=== PATIENT | male | born 1955 | race Caucasian/White ===

== ENCOUNTER 2023-12-29 01:42 | Inpatient (IN) | payer MEDICARE, SELFPAY ==
[2023-12-28 22:47] VITALS: BP 135/71
[2023-12-28 23:14] VITALS: BMI 24.4
[2023-12-28 23:40] VITALS: BP 130/70
[2023-12-28 23:42] LABS: % Basophils 0.7 % (0-2); % Eosinophils 0.2 % (0-6); % Immature Granulocytes 0.9 % (0-0.5); % Lymphocytes 20.3 % (20.5-51.1); % Monocytes 7.3 % (1.7-9.3); % Neutrophils 70.6 % (42.2-75.2); Absolute Lymphocytes 0.9 10^3/uL (1.2-3.4); Absolute Monocytes 0.3 10^3/uL (0.1-0.6); Absolute Neutrophils 3.2 10^3/uL (1.4-6.5); Hematocrit 29.8 % (39.0-52.0); Hemoglobin 10.6 g/dL (13.0-18.0); Mean Corp Hgb Conc. 35.6 g/dL (33.0-37.0); Mean Corpuscular Volume 78.6 fL (80.0-94.0); Mean Platelet Volume 8.3 fL (7.4-10.4); Nucleated Red Blood Cells % 0 % (-); Platelet Count 274 10^3/uL (130-400); Red Blood Cell Count 3.79 10^6/uL (4.70-6.10); Red Cell Dist. Width 14.4 % (11.5-14.5); White Blood Cell Count 4.5 10^3/uL (4.8-10.8)
[2023-12-28] MEDS: MAXIPIME 2000 MG IV (23:49)
[2023-12-28] MEDS: NSS 1000 IV (23:50)
[2023-12-28] MEDS: ZOFRAN 4 MG IV (23:50)
[2023-12-28 23:59] LABS: Urine Albumin 1+ (Neg - Trace); Urine Bilirubin Negative (Negative); Urine Character Clear (Clear); Urine Color Yellow; Urine Glucose Negative (Negative); Urine Ketone Negative (Negative); Urine Leukocyte Negative (Negative); Urine Nitrite Negative (Negative); Urine Occult Blood Negative (Negative); Urine Urobilinogen Negative (Neg - 1+); Urine pH 6.5 (5.0-9.0)
[2023-12-28 23:59] LABS: Carbon Dioxide 26 mmol/L (22-30)
[2023-12-29] VITALS (9 sets, daily range): BP systolic 102–145; BP diastolic 69–91; BMI 24.3
[2023-12-29 00:08] LABS: Urine Amorphous Seen; Urine Bacteria Few (Negative)
[2023-12-29 00:09] LABS: ALT (SGPT) 63 U/L (0-50); AST (SGOT) 37 U/L (17-59); Albumin 3.8 g/dl (3.5-5.0); Alkaline Phosphatase 264 U/L (38-126); Blood Urea Nitrogen 14 mg/dl (9-20); Calcium 8.7 mg/dl (8.4-10.2); Chloride 97 mmol/L (98-107); Estimated Creatinine Clearance > 125 ml/min; Glucose 169 mg/dl (70-99); Potassium 3.2 mmol/L (3.5-5.1); Sodium 133 mmol/L (135-145); Total Bilirubin 1.1 mg/dl (0.2-1.3); Total Protein 6.5 g/dl (6.3-8.2); eGFR > 60.00
--- NOTE | 2023-12-29 00:23 | ED.GENMED ---
History of Present Illness
General
Chief Complaint: Abnormal Lab Value
Source: patient
Exam Limitations: none
Time Seen by Provider: 12/28/23 23:12
Travel History
Have you had any contact with someone who has COVID-19?: No
Do you have any symptoms of coronavirus? Fever > 100 degrees, chills, cough, shortness of breath, sore throat, loss of taste or smell, muscle aches, or headache?: No
History of Present Illness
History of Present Illness:
68-year-old male with a history of pancreatic CA currently receiving therapy at [facility]. Patient had some increased abdominal pain yesterday. During his visit at [facility] they did labs urine and stool culture and blood cultures.
Patient was called that his blood culture had gram-negative rods and was sent for admission. Abdominal pain is significantly improved. He has had some episodes of vomiting today. No other infectious symptoms.
Past History
Past History
ED Past Medical History: Arrthythmia, Cancer, HTN, Hypercholesterolemia and IDDM
ED Past Surgical History: Orthopedic and Other (Lobectomy bile duct stents cataracts)
Social History
Tobacco: Non-smoker
Personal:
Review of Systems
Review of Systems
All Other Systems: Not applicable
Constitutional: Denies fever
Respiratory: Reports no symptoms
Cardiac: Reports no symptoms
: Reports no symptoms
Phy Exam
Physical Exam
Physical Exam:
GENERAL: Alert and oriented in no apparent distress
EYE: Orbits normal.
NECK: Supple
CARDIAC: Regular rate and rhythm without any obvious murmurs.
LUNGS: Clear breath sounds,normal
ABDOMEN: Soft, without focal tenderness or distention
NEUROLOGICAL: Alert and oriented , grossly non-focal
SKIN: Warm and dry, no rash or lesion, no discoloration, skin intact.
MUSCULOSKELETAL: No edema,no deformity.Good color
PSYCH: Normal and appropriate interaction.
Course
Orders/Labs/Results
Orders:
Orders
12/28/23 23:22
IV Insert/Care/Rem.- Treatment PRN
Cefepime HCl [Maxipime] 2,000 mg IV NOW STA
12/28/23 23:29
Complete Blood Count/With Diff Urgent
Comprehensive Metabolic Panel Urgent
Blood Culture Q30M
DONALD Source: Blood/Venous
Specimen Description:
12/28/23 23:39
Urinalysis Reflex To Culture Urgent
Date Specimen was Collected: 12/28/23
Time Specimen was Collected: 23:38
Urine Microscopic Reflex Cult Urgent
12/28/23 23:43
0.9% Sodium Chloride 1000 ml [Nss] 1,000 ml IV BOLUS
Ondansetron Injectable [Zofran] 4 mg IV NOW STA
12/28/23 23:46
Sterile Water [Sterile Water For Injection] 10 ml .ROUTE .[facility]
12/29/23 00:00
Blood Culture Q30M
DONALD Source: Blood/Venous
Specimen Description:
Abnormal Lab Results
12/28/23 12/28/23
23:29 23:39
WBC 4.5 L 10^3/uL
(4.8-10.8)
RBC 3.79 L 10^6/uL
(4.70-6.10)
Hgb 10.6 L g/dL
(13.0-18.0)
Hct 29.8 L %
(39.0-52.0)
MCV 78.6 L fL
(80.0-94.0)
Absolute Lymphs (auto) 0.9 L 10^3/uL
(1.2-3.4)
Immature Gran % 0.9 H %
(0-0.5)
Lymphocytes % 20.3 L %
(20.5-51.1)
Sodium 133 L mmol/L
(135-145)
Potassium 3.2 L mmol/L
(3.5-5.1)
Chloride 97 L mmol/L
(98-107)
Creatinine 0.6 L mg/dL
(0.7-1.3)
Glucose 169 H mg/dl
(70-99)
ALT 63 H U/L
(0-50)
Alkaline Phosphatase 264 H U/L
(38-126)
Urine RBC 3-6 A /HPF
(0-2)
Urine Bacteria (Reflex) Few A
(Negative)
Urine Albumin (Reflex) 1+ A
(Neg - Trace)
12/28/23 23:29
12/28/23 23:29
Vital Signs
Initial and Last Documented VS:
Initial Vital Signs
Temp Pulse Resp BP Pulse Ox
99.3 F 87 18 135/71 97
12/28/23 22:47 12/28/23 22:47 12/28/23 22:47 12/28/23 22:47 12/28/23 22:47
Last Documented Vital Signs
Temp Pulse Resp BP Pulse Ox
99.3 F 87 18 130/70 94
12/28/23 22:47 12/28/23 22:47 12/28/23 22:47 12/28/23 23:40 12/28/23 23:41
*Pulse Oximetry
Patient hypoxic: no
*Critical Care Note
Total Time (30-74mins, 75-104mins- exclusive of procedures): Not Applicable
Update Note
Update Note:
History consistent with gram-negative bacteremia. Admission for IV antibiotics. No clinical source to support the etiology. Abdomen is soft. Nonsurgical. No indication for CT scan. Stool culture was already sent. Urinalysis negative. No
respiratory symptoms.
ED Attending Note
-
Portions of this chart may have been created with voice recognition software.� Occasional wrong word or��sound alike� substitutions may have occurred due to the inherent limitations of voice recognition software.
Discharge Plan
Departure
Patient Disposition: Admit
Date of Disposition: 12/29/23
Time of Disposition: 00:26
Presentation/result/management discussed w/ accepting MD/DO: Hospitalist
Discharge Problem:
Gram-negative bacteremia, History of pancreatic CA
Prescriptions:
No Action
metoprolol succinate 50 mg Tablet Extended Release 24 Hr
50 mg PO HS
esomeprazole magnesium 40 mg Capsule,Delayed Release(Dr/Ec)
40 mg PO BID
azelastine 137 mcg (0.1 %) Aerosol,[place]
1 spray INTRANASAL DAILY
fluticasone propionate 50 mcg/actuation [place],Suspension
2 spray INTRANASAL DAILY
rosuvastatin 20 mg Tablet
20 mg PO HS
cholecalciferol (vitamin D3) [Vitamin D3] 125 mcg (5,000 unit) Tablet
125 mcg PO QPM
dapagliflozin propanediol [Farxiga] 5 mg Tablet
5 mg PO DAILY
Hold Instructions: Resume on 12/04/23.
Patient Comments:
11/25/2023: ON HOLD CURRENTLY
potassium citrate 99 mg Capsule
99 mg PO QPM
dutasteride 0.5 mg Capsule
0.5 mg PO QPM
Eliquis 5 mg tablet
5 mg PO BID
Patient Comments:
patient stopping eliquis on 10/27/23 and changing to asa
pioglitazone [Actos] 30 mg Tablet
30 mg PO DAILY
Hold Instructions: Resume on 11/17/23. resume if blood glucose levels are elevated on metformin
Patient Comments:
11/25/2023: ON HOLD CURRENTLY
silodosin [Rapaflo] 8 mg Capsule
8 mg PO HS
magnesium oxide 400 mg magnesium Tablet
400 mg PO QPM
acetaminophen [Tylenol] 325 mg capsule
650 mg PO QIDPRN PRN (Reason: mild pain)
sennosides [senna] 8.6 mg Tablet
17.2 mg PO BID
polyethylene glycol 3350 [HealthyLax] 17 gram powder in packet
17 g PO BID
oxycodone 5 mg capsule
5 mg PO Q4H
Patient Comments:
11/25/2023: last filled 11/18/23, 180 tabs for 30 from [id number]
valsartan 160 mg tablet
80 mg PO HS
Rx Instructions:
HOLD SYSTOLIC BLOOD PRESSURE <130 IF TAKING OXYCODONE
metformin 1,000 mg tablet extended release 24 hr
1,000 mg PO QPM
Referrals:
Coby Kline MD [Family Provider] -
Interventions
Interventions:
*Risk Screen - Suicide Last Done: 12/28/23 22:47
*General Assessment Last Done: 12/28/23 22:47
*Neglect/Abuse Screening Last Done: 12/28/23 22:47
ED- Fall Risk Assessment Last Done: 12/28/23 23:15
--- NOTE | 2023-12-29 00:31 | HPS.HSE ---
Family Physician
-
Family Physician: Coby Kline
Chief Complaint
-
gram negative bacteremia
History of Present Illness
Mr. Yonas Carlson is a 68 yo man with hx pancreatic cancer (follows at [facility]); paroxysmal atrial fibrillation on Eliquis presents to the ER after outpatient blood work showed gram negative rods bacteremia.
Patient received blood work because when he went for chemo on Monday he felt very sick. + headache and fatigue. He had vomiting and diarrhea. Thought may be 2/2 oxycodone taken on empty stomach but pursued work-up and patient received call he
had gram negative bacteremia on 12/28 and came to the ER.
He denies fevers/chills. No chest pain or shortness of breath. Last episode of diarrhea was at chemo. He has chronic abdominal pain from cancer with recent worsening sharp pains.
Patient was sent home from chemo with continuous infusion of Fluorouracil that is now complete.
Medical History
Past Medical History
Past Medical History: Reports Other
Additional Past Medical History:
Pancreatic Cancer
Lung Cancer s/p Lobectomy
DM-II
HUSSEIN
Past Surgical History: Reports Other
Additional Past Surgical History:
Right Lower Lobectomy
Left GINA
Social History
Tobacco: Non-smoker
Alcohol: None
Drug: None
Personal:
Family History
Family History: Not pertinent
Allergies / Home Medications
Allergies reflects when Allergies were last updated in [facility].
Home Medications with original date entered in [facility]
Allergy/Medication List:
Allergies
Allergy/AdvReac Type Severity Reaction Status Date / Time
latex Allergy Hives Verified 11/25/23 15:31
Sulfa (Sulfonamide Allergy Fever, Verified 11/25/23 15:31
Antibiotics) Hives
Home Medications
azelastine 137 mcg (0.1 %) nasal spray aerosol 1 spray intranasal DAILY Congestion 07/13/23
cholecalciferol (vitamin D3) 125 mcg (5,000 unit) tablet (Vitamin D3) 125 mcg PO QPM Supplement 07/13/23
dapagliflozin propanediol 5 mg tablet (Farxiga) 5 mg PO DAILY Diabetes 07/13/23
esomeprazole magnesium 40 mg capsule,delayed release 40 mg PO BID Gastrointestinal Issue 07/13/23
fluticasone propionate 50 mcg/actuation nasal spray,suspension 2 spray intranasal DAILY INFLAMMATION 07/13/23
metoprolol succinate 50 mg tablet,extended release 24 hr 50 mg PO HS Blood Pressure 07/13/23
potassium citrate 99 mg capsule 99 mg PO QPM Supplement 07/13/23
rosuvastatin 20 mg tablet 20 mg PO HS High Cholesterol 07/13/23
dutasteride 0.5 mg capsule 0.5 mg PO QPM Urinary Issue 10/31/23
acetaminophen 325 mg capsule (Tylenol) 650 mg PO QIDPRN PRN mild pain 11/03/23
apixaban 5 mg tablet (Eliquis) 5 mg PO BID Blood Clot Prevention/Tx 11/03/23
magnesium oxide 400 mg PO QPM Electrolyte Repletion 11/03/23
pioglitazone 30 mg tablet (Actos) 30 mg PO DAILY Diabetes 11/03/23
silodosin 8 mg capsule (Rapaflo) 8 mg PO HS Urinary Issue 11/03/23
metformin 1,000 mg tablet,extended release 24hr (osmotic) 1,000 mg PO QPM Diabetes 11/25/23
oxycodone 5 mg capsule 5 mg PO Q4H Pain 11/25/23
polyethylene glycol 3350 17 gram oral powder packet (HealthyLax) 17 g PO BID Constipation 11/25/23
sennosides 8.6 mg tablet (senna) 17.2 mg PO BID Constipation 11/25/23
valsartan 160 mg tablet 80 mg PO HS Blood Pressure 11/25/23
Review of Systems
-
History Source: Patient
A 12 point ROS was completed and negative except as noted: Yes
Physical Exam
Vital Signs
Vital Signs
Temp Pulse Resp BP Pulse Ox
99.3 F 87 18 130/70 94
12/28/23 22:47 12/28/23 22:47 12/28/23 22:47 12/28/23 23:40 12/28/23 23:41
Physical Exam
General: Other (no acute distress, conversant)
HEENT: Moist mucous membranes and PERRLA
Respiratory: Clear; No Wheezes, Rales or Rhonchi
Cardiac: S1/S2 and Regular Rhythm; No Murmur
GI: Soft, Non Distended, Normal Bowel Sounds and Other (Pos mid-abdominal tenderness - chronic per patient.)
Musculoskeletal: No Clubbing, No Cyanosis and No Edema
Neuro: AO x 3
Psych: Calm; No Anxious or Depressed
Laboratory Results
-
12/28/23 23:29
12/28/23 23:29
Laboratory Results
Total Bilirubin 1.1 mg/dl (0.2-1.3) 12/28/23 23:29
AST 37 U/L (17-59) 12/28/23 23:29
ALT 63 U/L (0-50) H 12/28/23 23:29
Alkaline Phosphatase 264 U/L (38-126) H 12/28/23 23:29
Data Reviewed
-
Diagnostic Radiology: Report Reviewed by me
Lab Data: Labs Reviewed by me
Impression/Plan
-
Mr. Yonas Carlson is a 68 yo man with hx pancreatic cancer (follows at [facility]); paroxysmal atrial fibrillation on Eliquis presents to the ER after outpatient blood work showed gram negative rods bacteremia.
Labs: WBC 4.5, Hg 10.6, PLT 274; Na 133, K+ 3.2, Cl 97, BUN 14, Cr 0.6, Glucose 169, T. Bili 1.1, AST 37, ALT 63, Alk Phos 264
UA 3-5 WBC
MAR: IV Cefepime
Gram negative Bacteremia
-patient reports increased abdominal pain on top of chronic pain over past couple of days
-CT A/P with IV and oral contrast
-admit to med/surg
-F/U cultures - repeated here and placed obtain records request from [facility] where blood and stool cultures obtained
-change IV Cefepime to Zosyn
-IVF overnight
-consider GI consult based on CT results
-NPO until CT results
Pancreatic Cancer
-locally advanced and non-operable s/p metal and plastic biliary stent;
-followed at [facility]
-patient is s/p chemotherapy on 12/27 then was discharged with continuous infusion of Fluorouracil that is now complete - nursing order to remove
DMII
-ISS low
Chronic pain 2/2 malignancy
-continue [employer] regmien
Paroxysmal Afib
-continue [employer] metoprolol, eliquis (hold if necessary based on CT results)
HTN
-[employer] regimen
DVT PPx SCD, eliquis
DNR - discussed on admission
[2023-12-29] MEDS: KCL ELIXIR 40 MEQ PO (01:10)
[2023-12-29] MEDS: OMNIPAQUE 50 ML PO (01:41)
[2023-12-29] MEDS: DILAUDID 0.5 MG IV (01:42)
[2023-12-29] MEDS: ZOFRAN 4 MG IV ×3 (01:43→16:11)
[2023-12-29] MEDS: NSS 1000 IV (04:15)
[2023-12-29] MEDS: ZOSYN 50 IV ×3 (06:13→19:09)
[2023-12-29 06:15] LABS: % Basophils 0.3 % (0-2); % Immature Granulocytes 0.8 % (0-0.5); % Lymphocytes 18.7 % (20.5-51.1); % Monocytes 6.3 % (1.7-9.3); % Neutrophils 73.9 % (42.2-75.2); Absolute Lymphocytes 0.7 10^3/uL (1.2-3.4); Absolute Monocytes 0.3 10^3/uL (0.1-0.6); Absolute Neutrophils 2.9 10^3/uL (1.4-6.5); Hematocrit 26.4 % (39.0-52.0); Hemoglobin 9.2 g/dL (13.0-18.0); Mean Corp Hgb Conc. 34.8 g/dL (33.0-37.0); Mean Corpuscular Hgb 27.8 pg (27.0-31.0); Mean Corpuscular Volume 79.8 fL (80.0-94.0); Mean Platelet Volume 8.6 fL (7.4-10.4); Nucleated Red Blood Cells % 0 % (-); Platelet Count 213 10^3/uL (130-400); Red Blood Cell Count 3.31 10^6/uL (4.70-6.10); Red Cell Dist. Width 14.5 % (11.5-14.5)
--- NOTE | 2023-12-29 06:27 | W.PN.UPDATE ---
Update Note
Progress Note Update
CT without interval change, awaiting final read.
I will consult GI given hx pancreatic cancer with biliary stenting, patient may need additional imaging. I will hold his Eliquis for now.
[2023-12-29 06:38] LABS: ALT (SGPT) 49 U/L (0-50); AST (SGOT) 38 U/L (17-59); Albumin 2.9 g/dl (3.5-5.0); Alkaline Phosphatase 211 U/L (38-126); Blood Urea Nitrogen 14 mg/dl (9-20); Calcium 8.3 mg/dl (8.4-10.2); Carbon Dioxide 30 mmol/L (22-30); Chloride 98 mmol/L (98-107); Estimated Creatinine Clearance > 125 ml/min; Glucose 155 mg/dl (70-99); Magnesium 1.7 mg/dl (1.6-2.3); Potassium 3.4 mmol/L (3.5-5.1); Sodium 135 mmol/L (135-145); Total Bilirubin 0.9 mg/dl (0.2-1.3); Total Protein 5.2 g/dl (6.3-8.2); eGFR > 60.00
[2023-12-29] MEDS: PROTONIX 40 MG PO ×2 (08:38→19:10)
[2023-12-29] MEDS: SENOKOT PO ×2 (08:39→19:10)
[2023-12-29] MEDS: MIRALAX PO ×2 (08:39→19:10)
[2023-12-29] MEDS: DURAGESIC 25 MCG/HR PATCH 1 PATCH TRANSDERM (09:08)
--- NOTE | 2023-12-29 09:33 | CON.GI ---
Addendum entered and electronically signed by Lila Lozano MD 12/29/23 15:24:
I saw and examined the patient.
The DEGREASING SOLUTION RECLAIMER or PA's note was reviewed and I agree with the note.
Comment: 68 yo pmh met panc Ca s/p biliary stenting with Dr. Petty on chemo follows at [facility], lung ca, a fib on Eliquis p/w + blood cultures outpatient at [place] - Klebsiella per oncologist at [place] who I spoke with today. Patient with n/v/d
on way to chemo and ongoing n/v after chemo, as well as abd pain (tender on exam in lower abd). LFTs here normal bili, CT is stable. UA is clear. Kleb can be biliary but would expect LFTs to be up.
Recommendations:
- Regular diet
- Hold Eliquis if eventual procedure
- Trend LFTs
- Stool studies, hold imodium until then
- Follow up ID consult
- Follow blood cultures
- Will d/w Dr. Petty on Monday as well
Original Note:
Consultation
-
Date/Time Consultation Requested: 12/29/23 @ 06:22
Date/Time Consultation Performed: 12/29/23 @ 09:30
Requesting Provider: Dr. Fox
Performing Provider: MALIKA Vera; Dr. Sarah Lozano
Reason for Consultation: gram negative bacteremia, hx panc CA with biliary stenting
Medical History
Chief Complaint / HPI
Chief Complaint: outpatient + blood cultures
History of Present Illness:
The patient is a 68-year-old male with a past medical history significant for metastatic pancreatic cancer status post biliary stenting on chemotherapy, lung CA, hypertension, hyperlipidemia, atrial fibrillation on Eliquis, GERD, GUZMÁN, history of
colon polyps, DM2, who presented to the emergency room after being told he had abnormal blood cultures outpatient. We are being asked to evaluate for Gram negative bacteremia with history of pancreatic cancer and biliary stenting. Upon review of
prior records, his initial diagnosis was in October 2023 after evaluation of abdominal pain with weight loss. He had undergone EGD with essentially no findings, and was advised to have an MRI which was abnormal showing a 5.0 cm pancreatic
adenocarcinoma in the pancreatic head and in the process and the significant lymphadenopathy suspicious for metastatic disease. Status post EUS/ERCP with biliary sphincterotomy and metal and plastic stent placement and biopsy. He ultimately was
evaluated and started treatment at [facility]. The patient had been admitted about 1 month ago with fevers of unknown origin with intermittent GI symptoms. He had undergone CT imaging at that time which showed no concerning findings aside from
pneumobilia which was likely secondary to stent patency. Workup for infectious etiology at that time was negative and antibiotics were held. It was also suspected that he may also have tumor fevers although source was unclear at that time.
Infectious disease did evaluate him as well and advised to observe off antibiotics. He was discharged home with plans to start on chemotherapy with his oncologist. He presents again after being advised to go to the ER for +blood cultures
outpatient. He reports that after his discharge in November he followed up with his oncologist Dr. Monica Kumar at [facility] in which she started on chemotherapy. He does not recall the drug names but notes that he had 3 dose of chemo
with his last dose this past Monday. He notes that since his diagnosis he has had ongoing abdominal pain although outpatient that had been somewhat controlled. On Monday as he was driving to his chemotherapy appointment he developed severe
diarrhea with vomiting to the point where he had to gum puller several times. He thought that this was secondary to taking his oxycodone on empty stomach. He notes that when he arrived for his chemotherapy appointment they did blood cultures from
his port and peripherally along with other labs, urine test, and stool studies. He did have his chemotherapy and was sent home. He notes he has had ongoing nausea since then with profuse watery stools. He also notes a headache which is unusual
for him. At baseline he is mostly constipated likely from his oxycodone use for pain but has been having liquid yellow diarrhea. He denies any melena, hematochezia, or hematemesis. He reports somewhat worsening abdominal pain primarily in the
center of his abdomen where his tumor is. He denies any fevers or chills. He denies any sick contacts or recent travel. He denies any upper respiratory symptoms or urinary symptoms. He denies any recent antibiotics or hospitalizations after
November. His last colonoscopy was about 4 years ago in which she had polyps removed. He denies any family history of colon cancer.
Past Medical History
Past Medical History: Arrhythmias (Paroxysmal atrial fibrillation on Eliquis), Cancer (Metastatic pancreatic cancer with metal and biliary stent placement on chemotherapy (treatment at [facility]), lung cancer status post lobectomy 2020), GERD,
HTN, Hypercholesterolemia, NIDDM and Other (GUZMÁN, osteoarthritis)
Past Surgical History: Orthopedic (bilateral total hip replacement) and Other (Biliary stenting, lung lobectomy)
Social History
Tobacco: Non-Smoker
Alcohol: None
Drug: None
Family History
Family History: Reviewed & Not Pertinent
Allergies / Home Medications
Allergy/AdvReac Type Severity Reaction Status Date / Time
latex Allergy Hives Verified 11/25/23 15:31
Sulfa (Sulfonamide Allergy Fever, Verified 11/25/23 15:31
Antibiotics) Hives
Medication Instructions Recorded
azelastine 137 mcg (0.1 %) nasal 1 spray intranasal DAILY Congestion 07/13/23
spray aerosol
cholecalciferol (vitamin D3) 125 125 mcg PO QPM Supplement 07/13/23
mcg (5,000 unit) tablet (Vitamin
D3)
esomeprazole magnesium 40 mg 40 mg PO BID Gastrointestinal Issue 07/13/23
capsule,delayed release
fluticasone propionate 50 2 spray intranasal DAILY 07/13/23
mcg/actuation nasal INFLAMMATION
spray,suspension
metoprolol succinate 50 mg 50 mg PO HS Blood Pressure 07/13/23
tablet,extended release 24 hr
potassium citrate 99 mg capsule 99 mg PO QPM Supplement 07/13/23
rosuvastatin 20 mg tablet 20 mg PO HS High Cholesterol 07/13/23
dutasteride 0.5 mg capsule 0.5 mg PO QPM Urinary Issue 10/31/23
acetaminophen 325 mg capsule 650 mg PO QIDPRN PRN mild pain 11/03/23
(Tylenol)
apixaban 5 mg tablet (Eliquis) 5 mg PO BID Blood Clot 11/03/23
Prevention/Tx
silodosin 8 mg capsule (Rapaflo) 8 mg PO HS Urinary Issue 11/03/23
metformin 1,000 mg tablet,extended 1,000 mg PO QPM Diabetes 11/25/23
release 24hr (osmotic)
oxycodone 5 mg capsule 5 mg PO Q4H PRN Pain 11/25/23
polyethylene glycol 3350 17 gram 17 g PO BID Constipation 11/25/23
oral powder packet (HealthyLax)
sennosides 8.6 mg tablet (senna) 17.2 mg PO BID Constipation 11/25/23
valsartan 160 mg tablet 80 mg PO HS Blood Pressure 11/25/23
dicyclomine 10 mg capsule 10 mg PO QID PRN cramps 12/29/23
fentanyl 12 mcg/hr transdermal 12/29/23
patch
fentanyl 12 mcg/hr transdermal 1 patch transdermal Q72H 12/29/23
patch
ondansetron HCl 8 mg tablet 8 mg PO Q4H 12/29/23
Review of Systems
-
History Source: Patient
Constitutional: Reports Weight Loss and Fatigue
EENT: Reports No Symptoms
Respiratory: Reports No Symptoms
Cardiac: Reports No Symptoms
Abdomen/GI: Reports Abdominal Pain, Nausea, Vomiting, Diarrhea and Anorexia
: Reports No Symptoms
Musculoskeletal: Reports Other (back pain)
Skin: Reports No Symptoms
Neurological: Reports Headache and Weakness (generalized)
Vital Signs
Temp Pulse Resp BP Pulse Ox
97.7 F 71 16 130/72 99
12/29/23 07:00 12/29/23 07:00 12/29/23 07:00 12/29/23 07:00 12/29/23 07:00
Physical Exam
Exam
General: Well Developed and No Apparent Distress
HEENT: Normocephalic, Anicteric and Atraumatic
Respiratory: Clear, Non Labored Respirations and Other (right CW port site WNL)
Cardiac: S1/S2 and Regular Rhythm
GI: Soft, Non Distended, Normal Bowel Sounds and Tender (generalized but significant in the mid abdomen)
Musculoskeletal: No Edema
Skin: Warm and Dry
Neuro: Awake, Alert and Oriented
Psych: Calm
Results
WBC 4.0 10^3/uL (4.8-10.8) L 12/29/23 05:32
Hgb 9.2 g/dL (13.0-18.0) L 12/29/23 05:32
Hct 26.4 % (39.0-52.0) L 12/29/23 05:32
MCV 79.8 fL (80.0-94.0) L 12/29/23 05:32
Plt Count 213 10^3/uL (130-400) D 12/29/23 05:32
Absolute Neuts (auto) 2.9 10^3/uL (1.4-6.5) 12/29/23 05:32
Sodium 135 mmol/L (135-145) 12/29/23 05:32
Potassium 3.4 mmol/L (3.5-5.1) L 12/29/23 05:32
Chloride 98 mmol/L (98-107) 12/29/23 05:32
Carbon Dioxide 30 mmol/L (22-30) 12/29/23 05:32
BUN 14 mg/dl (9-20) 12/29/23 05:32
Creatinine 0.6 mg/dL (0.7-1.3) L 12/29/23 05:32
Calcium 8.3 mg/dl (8.4-10.2) L 12/29/23 05:32
Total Bilirubin 0.9 mg/dl (0.2-1.3) 12/29/23 05:32
AST 38 U/L (17-59) 12/29/23 05:32
ALT 49 U/L (0-50) 12/29/23 05:32
Alkaline Phosphatase 211 U/L (38-126) H 12/29/23 05:32
Diagnostic Image Results:
12/28/2023 CT A/P w/ IV and oral: 'Currently stable ill-defined pancreatic head mass causing severe narrowing at the portal splenic confluence and proximal SMV as well as circumferential encasement of the SMA with associated upstream main pancreatic
ductal dilation. Stable peripancreatic likely metastatic lymph nodes. Stable mild common bile duct stent and pneumobilia keeping in with patency. No other acute findings.'
11/25/2023 CT A/P w/ IV contrast: IMPRESSION:
1. � LARGE INFILTRATING PANCREATIC ADENOCARCINOMA in the head of the pancreas encasing a metal stent in the common bile duct, obstructing the pancreatic duct, obstructing the superior mesenteric vein, and encasing the superior mesenteric artery
which is not definitively changed from 11/15/2023.
2. � SEVERE PNEUMOBILIA which has increased since 11/15/2023 and suggests patency of the biliary stents.
3. � Moderate portacaval and sid hepatis lymphadenopathy which is likely metastatic in etiology.
4. � Mild hepatosplenomegaly.
5. � Collateral varices throughout the abdomen secondary to superior mesenteric vein obstruction.
6. � Severe diverticulosis in the sigmoid colon.
7. � Moderate fecal material throughout the colon and rectum suggesting constipation.
8. � Severe multilevel discogenic degenerative disease in the lumbar spine.
Ultrasound, abdomen 11/03/23:
1. � New metal stent in the common bile duct placed for treatment of an obstructing adenocarcinoma in the head of the pancreas.
2. � Mild diffuse intrahepatic biliary dilatation with pneumobilia suggesting stent patency.
3. � Gallbladder distention and mild diffuse gallbladder wall thickening.
4. � Mild hepatomegaly.
5. � No sonographic evidence for ascites or upper abdominal fluid collection.
CT Abdomen/Pelvis w IV contrast, 11/03/23:
1. � ACUTE PANCREATITIS involving the head of the pancreas with an increased amount of peripancreatic inflammation and edema.
2. � 4.8 cm PANCREATIC ADENOCARCINOMA in the head and uncinate process of the pancreas encasing a metal stent in the common bile duct, obstructing the pancreatic duct, completely encasing and nearly occluding the superior mesenteric vein, and
encasing the superior mesenteric artery.
3. � Patent plastic and metal biliary stents with moderate pneumobilia in the liver.
4. � Moderate gallbladder distention and mild diffuse gallbladder wall thickening.
5. � Mild right upper quadrant lymphadenopathy (probably metastatic in etiology).
6. � Mild hepatosplenomegaly.
7. � Severe colonic diverticulosis.
8. � Severely enlarged prostate gland.
9. � Severe multilevel discogenic degenerative disease in the lumbar spine.
11/01/23 ERCP, Dr. Petty: �Duodenal deformity. Difficult to obtain adequate position for cannulation. The major papilla appeared to be small. The left main hepatic duct, common bile duct and common hepatic duct were moderately dilated, acquired.
Marked dilatation of the entire opacified area of the pancreatic duct was found. A biliary sphincterotomy was performed. One covered metal stent was placed into the common bile duct. One plastic stent was placed into the left hepatic duct via
covered metal stent.
MRI Abdomen, 10/25/23:
1. � 5.0 cm PANCREATIC ADENOCARCINOMA in the head and uncinate process of the pancreas obstructing the common bile duct and pancreatic duct. Complete malignant encasement and near occlusion of the superior mesenteric vein. Complete malignant
encasement of the superior mesenteric artery.
2. � Mild portacaval, sid hepatis, gastrohepatic ligament, and retroperitoneal lymphadenopathy suspicious for cindi metastatic disease.
3. � Multiple small peripheral enhancing nodules in the lower lobe of the left lung. Diagnostic possibilities are (1) pulmonary metastases or (2) peripheral endobronchial infection.
4. � Mild hepatosplenomegaly.
Prior GI Procedures:�
EGD:� 09/12/2023, Dr. Ferro
Impression:� Normal esophagus. Erythematous mucosa in the antrum. Biopsied. A few papules (nodules) found in the stomach. Biopsied. Normal examined duodenum.(Path: minute superficial fragments of hyperplastic gastric mucosa, no dysplasia; negative
H pylori)
� � � � � � � � � � � � � � � � � � � � � � � � � � � � � � � � � � � � �
Colonoscopy:� 2019, Dr. Ferro, 5mm polyp of the transverse colon (path: tubular adenoma); due 2023 for surveillance
Assessment / Plan
-
The patient is a 68-year-old male with a past medical history significant for metastatic pancreatic cancer status post biliary stenting on chemotherapy, lung CA, hypertension, hyperlipidemia, atrial fibrillation on Eliquis, GERD, GUZMÁN, history of
colon polyps, DM2, who presented to the emergency room after being told he had abnormal blood cultures outpatient. We are being asked to evaluate for Gram negative bacteremia with history of pancreatic cancer and biliary stenting. Interval hx as
above with +blood cultures outpatient. With c/o diarrhea, nausea, and vomiting. CT imaging is stable. Started on IV Zosyn. No fevers. Last chemo 12/27. LFT's are stable.
Problem list:
-gram negative bacteremia
-hx locally metastatic pancreatic CA s/p metal/plastic stenting, on chemotherapy
-nausea, vomiting, diarrhea
-mild hyponatremia
-hypokalemia
-mildly elevated ALT/alk phos
-PAF on Eliquis
-hx GUZMÁN
Other pertinent medical hx:
-OA
-DM2
-HTN
-HLD
-hx lung CA s/p lobectomy 2020
-GERD
-hx adenomatous colon polyps
Recommendations:
-Etiology of bacteremia unclear but possibly GI source with history and biliary/pancreatic stenting v other. CT imaging stable.
-Await repeat cultures
-IV abx as per hospitalist with ID consult pending
-Will obtain records of outpatient labs and blood cultures done at [facility]
-Placed a call to Dr. Monica Kumar's service for call back to discuss the case with them.
-Unlikely any plans for intervention or procedure based on CT but will review with Dr. Lozano after she speaks with his medical team at [facility].
-Trend LFT's
-Monitor for fevers
-Send stool studies. IF negative ok for imodium but would hold off until then
-NPO for now pending discussion above, on IV fluids
-Pain management as per medical team
-PRN antiemetics
-Eliquis is on hold pending above
-Will follow
-
-
Thank you for consultation and allowing me to participate in the patient's care. Please call the customer consulting manager GI physician during the after hours with any questions or concerns.
--- NOTE | 2023-12-29 11:22 | W.PN.HOSP.TC ---
Today's Communication/Plan
-
Await records from [facility] re labs and CX
I called Dr. Kumar 's office
Start a diet
Restart Eliquis if no GI procedure planned and if OK with GI
Assessment / Plan
Assessment / Plan
68-year-old male with history of metastatic pancreatic cancer with history of biliary stenting on chemotherapy presented to the hospital because of positive blood cultures as outpatient. His initial diagnosis was in October 2023 when he was
evaluated for weight loss. MRI showed 5 cm pancreatic adenocarcinoma with significant hepatopathy and suspicions for metastatic disease. He had EUS/ERCP with biliary sphincterotomy with stent placement and biopsy. He follows with Dr. Anderson
José� at [facility]. Patient had fevers a month ago with intermittent GI symptoms workup was negative and antibiotics were held. Patient was felt to have tumor fevers at that time. He was discharged home and had more chemo. Patient
does not know exact chemo regimen but thinks he is on 3 drug regimen and last dose was this past Monday which is 12/27/2023. He has been having some diarrhea with vomiting as well. On his way there. He was given chemotherapy and sent home.
Patient still has diarrhea.
12/28/2023 CT A/P w/ IV and oral-Stable ill-defined pancreatic head mass causing severe narrowing at the portal splenic confluence and proximal SMV as well as circumferential encasement of the SMA with associated upstream main pancreatic ductal
dilation.� Stable peripancreatic likely metastatic lymph nodes.� Stable mild common bile duct stent and pneumobilia keeping in with patency.�
CVS: S1-S2 normal
Chest: CTA B/L
Abdomen: Soft, NT / Bowel sounds present
Extremities: No edema, normal pulses
METAL RECLAMATION KETTLE TENDER: Non focal exam
# Positive blood cultures
Reported GN Bacteremia
We need to get records from [facility]
Continue empiric antibiotics Zosyn
Await repeat CX
ID GI consultation
#NVD
Check stool studies
Symptomatic treatment
Better now per Pt
# Paroxysmal atrial fibrillation
On Eliquis as outpatient. Restart if OK with GI
Continue metoprolol
# Hypertension-on metoprolol and valsartan as outpatient
#Hyperlipidemia on statin
# Diabetes-on metformin
Hold metformin and sliding scale coverage and see if the diarrhea improves
# Prostate disease-on dutasteride and Rapaflo as outpatient continue
# History of lung cancer status post lobectomy in 2020
# GERD/hiatal hernia-continue PPI
# History of Cr
# Arthritis/sciatica
# Sleep apnea-continue CPAP
# Diverticulosis
# DVT Prophylaxis-Lovenox while holding Eliquis
D/W GI
D/w RN
Anticipated Discharge: 24 - 48 hours
Subjective/Interval History
-
Date of Service: December 29, 2023
Objective Data
-
Labs:
Laboratory Results
12/28/23 12/29/23
23:29 05:32
WBC 4.5 L 4.0 L
Hgb 10.6 L 9.2 L
Hct 29.8 L 26.4 L
Plt Count 274 213 D
Sodium 133 L 135
Potassium 3.2 L 3.4 L
Chloride 97 L 98
Carbon Dioxide 26 30
BUN 14 14
Creatinine 0.6 L 0.6 L
Glucose 169 H 155 H
Calcium 8.7 8.3 L
Total Bilirubin 1.1 0.9
AST 37 38
ALT 63 H 49
Alkaline Phosphatase 264 H 211 H
Vital Signs:
Vital Signs
Temp Pulse Resp BP Pulse Ox
97.7 F 71 16 130/72 99
12/29/23 07:00 12/29/23 07:00 12/29/23 07:00 12/29/23 07:00 12/29/23 07:00
--- NOTE | 2023-12-29 11:58 | CM ---
Chart reviewed. Spoke with pt at bedside
Pt lives alone in ranch style home
Retired, independent
Currently undergoing treatment for pancreatic cancer at [facility]
Recently received 3rd cycle of chemo
Has CPAP([employer]) - no other DME
No past SNF. Has had [facility]NA thru [facility] in past
PCP - Dr Odilon Kline
Pharm - [facility]
Will have ride at d/c
Discussed IMM
CM will follow for d/c needs
Plan - Anticipate home to previous setting - needs tbd
[2023-12-29] MEDS: ROXICODONE 5 MG PO (16:12)
--- NOTE | 2023-12-29 17:12 | CON.ID ---
Consultation
-
Date/Time Consultation Requested: 12/29/2023 03:48
Date/Time Consultation Performed: 12/29/2023 1640
Requesting Provider: Dr. Fox
Performing Provider: Dr. Mazariegos
Reason for Consultation: Bacteremia
Chief Complaint / Past History
History of Present Illness
Yonas Carlson is a 68-year-old man with a significant past medical history of recently diagnosed pancreatic cancer, currently on chemotherapy, being evaluated at the request of Dr. Fox in regards to bacteremia. History is obtained from chart
review, along with interview.
The patient receives care at [facility] in [place], and reports that he was scheduled to receive his third round of chemotherapy 3 days ago. He woke up that morning with abdominal discomfort, and on the way up to [facility] he developed
nausea and vomiting, along with diarrhea. He was checked out, but he was deemed safe to administer chemotherapy to an he received his usual course. As a precaution, a performed blood cultures, urine culture and stool cultures while they are. Late
last evening he received a call from [facility] that his blood cultures are now positive for Klebsiella (sensitivities pending). He was advised to travel to the nearest emergency room for further care and thus he presented to [facility].
He reports that he continues to feel 'terrible'. He continues to have abdominal pain, both in the pancreatic area noted to be somewhat intense and focal, along with lower abdominal discomfort which is described as more diffuse and probably. Also
admits to ongoing diarrhea.
Past History
Additional Past Medical History:
Pancreatic cancer (on chemotherapy)
A-fib
BPH
Diabetes
Additional Past Surgical History:
Bilateral hip replacement
Ankle surgery
Shoulder surgery
Port-A-Cath (placed November 2023)
Allergy History:
latex Allergy (Verified 11/25/23 15:31)
Hives
Sulfa (Sulfonamide Antibiotics) Allergy (Verified 11/25/23 15:31)
Fever, Hives
Medications Reviewed: Yes
Current Antibiotics:
Zosyn
Social History
Tobacco: Non-Smoker
Alcohol: None
Drug: None
Employment: Employed
Family History
Family History: Not Pertinent
Review of Systems
Vital Signs
Temp Pulse Resp BP Pulse Ox
97.9 F 71 16 145/80 99
12/29/23 15:00 12/29/23 15:00 12/29/23 15:00 12/29/23 15:00 12/29/23 15:00
Physical Exam
Physical Exam
Constitutional: No Acute Distress, Comfortable, Acutely Ill and Non-toxic; Negative Chronically Ill
Head: Normocephalic
Eyes: Pupils Equal, Pupils Round, No Conjunctival Hemorrhage and Sclera Anicteric
Oral: No Thrush and No Ulcers
Cardiovascular: Regular Rate and S1/S2; Negative S3/S4
Pulmonary: Clear; Negative Wheezes, Rales or Rhonchi
Gastrointestinal: Soft, Non Tender and Non Distended
Extremities: Negative Edema, Cyanosis or Erythema
Musculoskeletal: Negative Joint Swelling or Joint Effusion
Skin: Warm and Dry; Negative Rash or Jaundice
Neurological: Awake and Alert
Psychological: Calm
Lab / Diagnostic Study Results
12/29/23 05:32
12/29/23 05:32
Abs Immat Gran (auto) 0.0 10^3/uL (0-0.05) 12/29/23 05:32
Absolute Neuts (auto) 2.9 10^3/uL (1.4-6.5) 12/29/23 05:32
Absolute Lymphs (auto) 0.7 10^3/uL (1.2-3.4) L 12/29/23 05:32
Absolute Monos (auto) 0.3 10^3/uL (0.1-0.6) 12/29/23 05:32
Absolute Basos (auto) 0.0 10^3/uL (0-0.2) 12/29/23 05:32
Immature Gran % 0.8 % (0-0.5) H 12/29/23 05:32
Neutrophils % 73.9 % (42.2-75.2) 12/29/23 05:32
Lymphocytes % 18.7 % (20.5-51.1) L 12/29/23 05:32
Monocytes % 6.3 % (1.7-9.3) 12/29/23 05:32
Eosinophils % 0.0 % (0-6) 12/29/23 05:32
Basophils % 0.3 % (0-2) 12/29/23 05:32
Ur Squamous Epith Cells 11-15 /LPF (Few) 12/28/23 23:39
Microbiology Results
Micro:
12/29/23 13:00 C. difficile GDH Antigen & Toxins - Final
Feces/Stool Negative for toxigenic C.difficile
- Final
Negative for Norovirus GI and GII.
12/29/23 13:00 Cryptosporidium/Giardia - Final
Feces/Stool Negative for Cryptosporidium and/or Giardia Lamblia
antigens.
12/29/23 13:00 Stool Leukocytes - Final
Feces/Stool
12/29/23 13:00 Salmonella/Shigella Culture - Pending
Feces/Stool Campylobacter Culture - Pending
Shiga Toxin Test - Pending
12/29/23 00:44 Blood Culture - Pending
Blood/Venous
12/28/23 23:29 Blood Culture - Pending
Blood/Venous
Imaging:
12/29/2023 CT abdomen/pelvis with contrast: There is a grossly stable large pancreatic head neoplasm with associated local regional infiltration. Stable mild common bile duct stent and pneumobilia in keeping with patency. Redemonstration of upper
abdominal venous collaterals. Spleen, kidneys and adrenal glands are within normal limits. No free fluid or free air noted. Please see full dictation for additional detail.
Assessment / Plan
Klebsiella bacteremia; suspect GI source
Pancreatic cancer; currently on chemotherapy
- stent in place.
A-fib
BPH
Diabetes
Recommendations:
Continue with empiric Zosyn for the present.
C. difficile testing noted to be negative.
Monitor white count and temperature curve.
Blood cultures have been repeated here; will await results.
Await full sensitivities of positive blood cultures to guide further antimicrobial selection and de-escalation.
[2023-12-29 17:32] LABS: Glucose - Point of Care 138 mg/dl (70-99)
[2023-12-29] MEDS: NOVOLOG FLEXPEN-LOW RESISTANCE SC (17:35)
[2023-12-29] MEDS: LOVENOX 40 MG SC (17:36)
[2023-12-29] MEDS: PROSCAR 5 MG PO (17:36)
[2023-12-29] MEDS: FLOMAX 0.400000000000000022 MG PO (21:00)
[2023-12-29] MEDS: CRESTOR 20 MG PO (21:00)
[2023-12-29] MEDS: DIOVAN 80 MG PO (21:00)
[2023-12-29] MEDS: TOPROL XL 50 MG PO (21:00)
[2023-12-29] MEDS: NON-FORMULARY ITEM 137 SPRAY NASAL (23:58)
[2023-12-30] MEDS: ZOSYN 50 IV ×4 (06:08→19:39)
[2023-12-30 08:23] VITALS: BP 136/75
[2023-12-30 08:27] LABS: Hematocrit 29.1 % (39.0-52.0); Hemoglobin 9.9 g/dL (13.0-18.0); Mean Corpuscular Hgb 27.7 pg (27.0-31.0); Mean Corpuscular Volume 81.5 fL (80.0-94.0); Mean Platelet Volume 8.7 fL (7.4-10.4); Platelet Count 230 10^3/uL (130-400); Red Blood Cell Count 3.57 10^6/uL (4.70-6.10); Red Cell Dist. Width 14.4 % (11.5-14.5); White Blood Cell Count 3.1 10^3/uL (4.8-10.8)
[2023-12-30] MEDS: PROTONIX 40 MG PO ×2 (08:38→19:41)
[2023-12-30] MEDS: NON-FORMULARY ITEM 1 SPRAY NASAL (08:38)
[2023-12-30 08:41] LABS: ALT (SGPT) 50 U/L (0-50); AST (SGOT) 36 U/L (17-59); Albumin 3.2 g/dl (3.5-5.0); Alkaline Phosphatase 248 U/L (38-126); Blood Urea Nitrogen 12 mg/dl (9-20); Carbon Dioxide 30 mmol/L (22-30); Chloride 96 mmol/L (98-107); Estimated Creatinine Clearance > 125 ml/min; Glucose 144 mg/dl (70-99); Potassium 3.5 mmol/L (3.5-5.1); Sodium 135 mmol/L (135-145); Total Bilirubin 1.6 mg/dl (0.2-1.3); Total Protein 5.8 g/dl (6.3-8.2); eGFR > 60.00
[2023-12-30] MEDS: SENOKOT PO ×2 (08:43→19:41)
[2023-12-30] MEDS: MIRALAX PO ×2 (08:43→19:41)
[2023-12-30 08:53] LABS: Glucose - Point of Care 154 mg/dl (70-99)
[2023-12-30] MEDS: NOVOLOG FLEXPEN-LOW RESISTANCE SC ×2 (08:55→12:53)
[2023-12-30 10:57] LABS: Glycohemoglobin (HgbA1c) 7.6 % (4.0-5.6)
[2023-12-30 11:53] LABS: Glucose - Point of Care 120 mg/dl (70-99)
--- NOTE | 2023-12-30 14:13 | W.PN.HOSP.TC ---
Today's Communication/Plan
-
Continue antibiotics
Lovenox while off Eliquis
Assessment / Plan
Assessment / Plan
68-year-old male with history of metastatic pancreatic cancer with history of biliary stenting on chemotherapy presented to the hospital because of positive blood cultures as outpatient. His initial diagnosis was in October 2023 when he was
evaluated for weight loss. MRI showed 5 cm pancreatic adenocarcinoma with significant hepatopathy and suspicions for metastatic disease. He had EUS/ERCP with biliary sphincterotomy with stent placement and biopsy. He follows with Dr. Anderson
José� at [facility]. Patient had fevers a month ago with intermittent GI symptoms workup was negative and antibiotics were held. Patient was felt to have tumor fevers at that time. He was discharged home and had more chemo. Patient
does not know exact chemo regimen but thinks he is on 3 drug regimen and last dose was this past Monday which is 12/27/2023. He has been having some diarrhea with vomiting as well. On his way there. He was given chemotherapy and sent home.
Patient still has diarrhea.
12/28/2023 CT A/P w/ IV and oral-Stable ill-defined pancreatic head mass causing severe narrowing at the portal splenic confluence and proximal SMV as well as circumferential encasement of the SMA with associated upstream main pancreatic ductal
dilation.� Stable peripancreatic likely metastatic lymph nodes.� Stable mild common bile duct stent and pneumobilia keeping in with patency.�
CVS: S1-S2 normal
Chest: CTA B/L
Abdomen: Soft, NT / Bowel sounds present
Extremities: No edema, normal pulses
PASTRYCOOK: Non focal exam
# Positive blood cultures-Reportedly Klebsiella
Checked on patient's phone - No information yet on the results
Reported GN Bacteremia
Called [facility] twice yesterday. They were supposed to fax me reports which I have not seen yet.
Continue empiric antibiotics Zosyn
Await repeat CX-negative so far
ID GI consultation
#NVD
All stool studies were negative at [facility]
Symptomatic treatment
Better now per Pt
# Paroxysmal atrial fibrillation
On Eliquis On Hold for GI Procedure
Will do Lovenox twice daily and hold Lovenox dose evening of 12/31/2023
Continue metoprolol
# Hypertension-on metoprolol and valsartan as outpatient
#Hyperlipidemia on statin
# Diabetes-on metformin
Restart
# Prostate disease-on dutasteride and Rapaflo as outpatient continue
# History of lung cancer status post lobectomy in 2020
# GERD/hiatal hernia-continue PPI
# History of Cr
# Arthritis/sciatica
# Sleep apnea-continue CPAP
# Diverticulosis
# DVT Prophylaxis-Lovenox
D/W GI
D/w RN
Anticipated Discharge: > 48 hours
Subjective/Interval History
-
Date of Service: December 30, 2023
Objective Data
-
Labs:
Laboratory Results
12/30/23
07:02
WBC 3.1 L
Hgb 9.9 L
Hct 29.1 L
Plt Count 230
Sodium 135
Potassium 3.5
Chloride 96 L
Carbon Dioxide 30
BUN 12
Creatinine 0.6 L
Glucose 144 H
Calcium 9.0
Total Bilirubin 1.6 H
AST 36
ALT 50
Alkaline Phosphatase 248 H
Vital Signs:
Vital Signs
Temp Pulse Resp BP Pulse Ox
98.0 F 69 20 136/75 98
12/30/23 08:23 12/30/23 08:23 12/30/23 08:23 12/30/23 08:23 12/30/23 08:23
I&O
12/29/23 12/30/23 12/31/23
06:59 06:59 06:59
Intake Total 320 / 320
Balance 320 / 320
[2023-12-30 14:46] VITALS: BP 129/69
[2023-12-30] MEDS: FLUSH (NSS) 1 FLUSH IV (15:00)
--- NOTE | 2023-12-30 15:03 | W.PN.GI.CBS2 ---
Today's Communication / Plan
-
monitor LFTs, antibiotics, follow up blood culture
Assessment / Plan
-
68 yo pmh met panc Ca s/p biliary stenting with Dr. Petty on chemo follows at [facility], lung ca, a fib on Eliquis p/w + blood cultures outpatient at [place] - Klebsiella per oncologist at [place] who I spoke with 12/29.� Patient with n/v/d on way to
chemo and ongoing n/v after chemo, as well as abd pain (tender on exam in lower abd).� LFTs here normal bili, CT is stable.� UA is clear.� Kleb can be biliary but would expect LFTs to be up.�
Recommendations:
- Regular diet
- Hold Eliquis if eventual procedure
- Trend LFTs - slight bump in LFTs today will monitor
- Stool studies, hold imodium until then - CDI negative, pending rest of work up
- Appreciate ID consult
- Follow blood cultures
- Will d/w Dr. Petty on Monday as well
Subjective
Subjective
Date of Service: December 30, 2023
no pain, no fevers
Objective
Data Reviewed
Laboratory Data:
Laboratory Results
12/30/23 07:02
12/30/23 07:02
Laboratory Results
Magnesium 1.7 mg/dl (1.6-2.3) 12/29/23 05:32
Total Bilirubin 1.6 mg/dl (0.2-1.3) H 12/30/23 07:02
AST 36 U/L (17-59) 12/30/23 07:02
ALT 50 U/L (0-50) 12/30/23 07:02
Alkaline Phosphatase 248 U/L (38-126) H 12/30/23 07:02
Vital Signs and I&O:
Vital Signs
Temp Pulse Resp BP Pulse Ox
97.9 F 80 18 129/69 99
12/30/23 14:46 12/30/23 14:46 12/30/23 14:46 12/30/23 14:46 12/30/23 14:46
I&O
12/29/23 12/30/23 12/31/23
06:59 06:59 06:59
Intake Total 320 / 320
Balance 320 / 320
Physical Exam
Physical Exam
GI: Non Distended and Non Tender
--- NOTE | 2023-12-30 15:10 | W.PN.ID1 ---
Date of Service
Date of Service: December 30, 2023
Today's Communication
Continue abx.
Assessment / Plan
Klebsiella bacteremia; suspect GI source
Pancreatic cancer; currently on chemotherapy
- stent in place.
A-fib
BPH
Diabetes
Recommendations:
Continue with empiric Zosyn for the present.
C. difficile testing noted to be negative.
Monitor white count and temperature curve.
Blood cultures have been repeated here; will await results.
Await full sensitivities of positive blood cultures to guide further antimicrobial selection and de-escalation.
Chief Complaint
-: Clinical Sepsis
Subjective / Review of Systems
Patient seen and examined. Reports feeling overall improved. Abdominal pain improved.
Review of Systems: No Fever and No Chills
Vital Signs / Physical Exam
Vital Signs
Vital Signs
Temp Pulse Resp BP Pulse Ox
97.9 F 80 18 129/69 99
12/30/23 14:46 12/30/23 14:46 12/30/23 14:46 12/30/23 14:46 12/30/23 14:46
Physical Exam
Constitutional: No Acute Distress, Comfortable and Non-toxic
Eyes: No Conjunctival Hemorrhage and Sclera Anicteric
Pulmonary: Non Labored
Gastrointestinal: Non Distended
Neurological: Awake, Alert and Oriented
Psychological: Calm
Objective Data
Lab Data
Lab Results
12/30/23 07:02
12/30/23 07:02
Estimated Creat Clear > 125 ml/min 12/30/23 07:02
Total Bilirubin 1.6 mg/dl (0.2-1.3) H 12/30/23 07:02
AST 36 U/L (17-59) 12/30/23 07:02
ALT 50 U/L (0-50) 12/30/23 07:02
Alkaline Phosphatase 248 U/L (38-126) H 12/30/23 07:02
Most recent labs reviewed.
Micro Results:
12/29/23 13:00 Salmonella/Shigella Culture - Preliminary
Feces/Stool Culture in Progress
Campylobacter Culture - Preliminary
Culture in Progress
Shiga Toxin Test - Pending
12/29/23 00:44 Blood Culture - Preliminary
Blood/Venous No Growth in 24 hours- Final report to follow
12/28/23 23:29 Blood Culture - Preliminary
Blood/Venous No Growth in 24 hours- Final report to follow
12/29/23 13:00 C. difficile GDH Antigen & Toxins - Final
Feces/Stool Negative for toxigenic C.difficile
- Final
Negative for Norovirus GI and GII.
12/29/23 13:00 Cryptosporidium/Giardia - Final
Feces/Stool Negative for Cryptosporidium and/or Giardia Lamblia
antigens.
12/29/23 13:00 Stool Leukocytes - Final
Feces/Stool
Imaging:
12/29/2023 CT abdomen/pelvis with contrast: There is a grossly stable large pancreatic head neoplasm with associated local regional infiltration. Stable mild common bile duct stent and pneumobilia in keeping with patency. Redemonstration of upper
abdominal venous collaterals. Spleen, kidneys and adrenal glands are within normal limits. No free fluid or free air noted. Please see full dictation for additional detail.
[2023-12-30 16:50] LABS: Glucose - Point of Care 198 mg/dl (70-99)
[2023-12-30] MEDS: NOVOLOG FLEXPEN-LOW RESISTANCE 1 UNITS SC (18:26)
[2023-12-30] MEDS: VITAMIN D3 (cholecalciferol) 125 MCG PO (18:27)
[2023-12-30] MEDS: PROSCAR 5 MG PO (18:28)
[2023-12-30] MEDS: GLUCOPHAGE XR EXTENDED RELEASE 1000 MG PO (18:28)
[2023-12-30] MEDS: ROXICODONE 5 MG PO (19:18)
[2023-12-30] MEDS: BENTYL 10 MG PO (19:24)
[2023-12-30] MEDS: LOVENOX 80 MG SC (19:40)
[2023-12-30] MEDS: CRESTOR 20 MG PO (21:11)
[2023-12-30] MEDS: FLOMAX 0.400000000000000022 MG PO (21:11)
[2023-12-30] MEDS: TOPROL XL 50 MG PO (21:12)
[2023-12-30] MEDS: DIOVAN 80 MG PO (21:22)
[2023-12-30 21:39] LABS: Glucose - Point of Care 127 mg/dl (70-99)
[2023-12-30 23:40] VITALS: BP 135/69
[2023-12-31] MEDS: ZOSYN 50 IV ×4 (00:09→17:25)
[2023-12-31 07:30] LABS: Glucose - Point of Care 132 mg/dl (70-99)
[2023-12-31 07:46] LABS: ALT (SGPT) 42 U/L (0-50); AST (SGOT) 30 U/L (17-59); Albumin 3.3 g/dl (3.5-5.0); Alkaline Phosphatase 259 U/L (38-126); Direct Bilirubin 0.4 mg/dl (0.0-0.4); Total Bilirubin 1.7 mg/dl (0.2-1.3); Total Protein 5.8 g/dl (6.3-8.2)
[2023-12-31 07:55] VITALS: BP 136/82
[2023-12-31] MEDS: NOVOLOG FLEXPEN-LOW RESISTANCE SC (09:07)
[2023-12-31] MEDS: LOVENOX 80 MG SC (09:09)
[2023-12-31] MEDS: NON-FORMULARY ITEM 1 SPRAY NASAL (09:09)
[2023-12-31] MEDS: MIRALAX 17 GRAMS PO (09:10)
[2023-12-31] MEDS: SENOKOT 17.1999999999999993 MG PO (09:10)
[2023-12-31] MEDS: PROTONIX 40 MG PO ×2 (09:10→20:21)
[2023-12-31] MEDS: ROXICODONE 5 MG PO ×3 (09:13→20:22)
[2023-12-31 12:02] LABS: Glucose - Point of Care 196 mg/dl (70-99)
--- NOTE | 2023-12-31 12:35 | W.PN.HOSP.TC ---
Today's Communication/Plan
-
add ZenPep here
Hold metformin with last dose
Hold Senokot and MiraLAX
Antibiotics per infectious disease
N.p.o. after midnight tonight
Lovenox DVT prophylaxis dose tonight
Restart Eliquis when okay with GI
Assessment / Plan
Assessment / Plan
68-year-old male with history of metastatic pancreatic cancer with history of biliary stenting on chemotherapy presented to the hospital because of positive blood cultures as outpatient. His initial diagnosis was in October 2023 when he was
evaluated for weight loss. MRI showed 5 cm pancreatic adenocarcinoma with significant hepatopathy and suspicions for metastatic disease. He had EUS/ERCP with biliary sphincterotomy with stent placement and biopsy. He follows with Dr. Anderson
José� at [facility]. Patient had fevers a month ago with intermittent GI symptoms workup was negative and antibiotics were held. Patient was felt to have tumor fevers at that time. He was discharged home and had more chemo. Patient
does not know exact chemo regimen but thinks he is on 3 drug regimen and last dose was this past Monday which is 12/27/2023. He has been having some diarrhea with vomiting as well. On his way there. He was given chemotherapy and sent home.
Patient still has diarrhea.
12/28/2023 CT A/P w/ IV and oral-Stable ill-defined pancreatic head mass causing severe narrowing at the portal splenic confluence and proximal SMV as well as circumferential encasement of the SMA with associated upstream main pancreatic ductal
dilation.� Stable peripancreatic likely metastatic lymph nodes.� Stable mild common bile duct stent and pneumobilia keeping in with patency.�
CVS: S1-S2 normal
Chest: CTA B/L
Abdomen: Soft, NT / Bowel sounds present
Extremities: No edema, normal pulses
AUXILIARY EQUIPMENT TENDER: Non focal exam
# Positive blood cultures- Klebsiella bacteremia
Checked on patient's phone -seems to be susceptible to all the antibiotics
Likely source biliary
Repeat cultures here are negative
May be able to narrow antibiotics-defer to ID
#NVD
All stool studies were negative at [facility]
Symptomatic treatment
Has diarrhea
He takes Creon w- will add ZenPep here
# Paroxysmal atrial fibrillation
On Eliquis as OP On Hold for GI Procedure
Will do Lovenox twice daily and hold Lovenox dose evening of 12/31/2023,in case procedure planning in am.
Restart AC when OK with GI
Continue metoprolol
# Hypertension-on metoprolol and valsartan as outpatient
#Hyperlipidemia on statin
# Diabetes-on metformin
Hold metformin
# Prostate disease-on dutasteride and Rapaflo as outpatient continue
# History of lung cancer status post lobectomy in 2020
# GERD/hiatal hernia-continue PPI
# History of Cr
# Arthritis/sciatica
# Sleep apnea-continue CPAP
# Diverticulosis
# DVT Prophylaxis-Lovenox
D/w RN
Anticipated Discharge: 24 - 48 hours
Subjective/Interval History
-
Date of Service: December 31, 2023
Objective Data
-
Labs:
Laboratory Results
12/31/23
07:08
Total Bilirubin 1.7 H
AST 30
ALT 42
Alkaline Phosphatase 259 H
Vital Signs:
Vital Signs
Temp Pulse Resp BP Pulse Ox
97.6 F 64 17 136/82 98
12/31/23 07:55 12/31/23 07:55 12/31/23 07:55 12/31/23 07:55 12/31/23 07:55
I&O
12/30/23 12/31/23 01/01/24
06:59 06:59 06:59
Intake Total 320 / 320 1240 / 1240
Output Total 3 / 3
Balance 320 / 320 1237 / 1237
--- NOTE | 2023-12-31 13:03 | W.PN.GI.CBS2 ---
Today's Communication / Plan
-
possible biliary stent exchange tmwr, antibiotics
Assessment / Plan
-
68 yo pmh met panc Ca s/p biliary stenting with Dr. Petty on chemo follows at [facility], lung ca, a fib on Eliquis p/w + blood cultures outpatient at [place] - Klebsiella per oncologist at [place] who I spoke with 12/29.� Patient with n/v/d on way to
chemo and ongoing n/v after chemo, as well as abd pain (tender on exam in lower abd).� LFTs here normal bili, CT is stable.� UA is clear.� Kleb can be biliary but would expect LFTs to be up.�
Recommendations:
- Regular diet - I discussed with him changing today given pain and diarrhea he did not want to; clears for possible procedure in am tmwr
- Hold Eliquis last dose prior to ER visit 12/28
- Trend LFTs - bili indirect
- Stool studies, hold imodium until then - CDI and giardia negative, stool culture prelim
- Appreciate ID consult
- I d/w Dr. Petty today, possible biliary stent exchange tomorrow could be source of infection, I updated Dr. Adam as well
Subjective
Subjective
Date of Service: December 31, 2023
pt with pain and diarrhea after eating
Objective
Data Reviewed
Laboratory Data:
Laboratory Results
12/30/23 07:02
12/30/23 07:02
Laboratory Results
Magnesium 1.7 mg/dl (1.6-2.3) 12/29/23 05:32
Total Bilirubin 1.7 mg/dl (0.2-1.3) H 12/31/23 07:08
AST 30 U/L (17-59) 12/31/23 07:08
ALT 42 U/L (0-50) 12/31/23 07:08
Alkaline Phosphatase 259 U/L (38-126) H 12/31/23 07:08
Vital Signs and I&O:
Vital Signs
Temp Pulse Resp BP Pulse Ox
97.6 F 64 17 136/82 98
12/31/23 07:55 12/31/23 07:55 12/31/23 07:55 12/31/23 07:55 12/31/23 07:55
I&O
12/30/23 12/31/23 01/01/24
06:59 06:59 06:59
Intake Total 320 / 320 1240 / 1240
Output Total 3 / 3
Balance 320 / 320 1237 / 1237
Physical Exam
Physical Exam
GI: Tender
[2023-12-31] MEDS: NOVOLOG FLEXPEN-LOW RESISTANCE 1 UNITS SC ×2 (13:14→17:26)
--- NOTE | 2023-12-31 13:47 | W.PN.ID1 ---
Date of Service
Date of Service: December 31, 2023
Today's Communication
Continue abx.
Assessment / Plan
Klebsiella bacteremia; suspect GI source
Pancreatic cancer; currently on chemotherapy
- stent in place.
A-fib
BPH
Diabetes
Recommendations:
Continue with empiric Zosyn for the present.
C. difficile testing noted to be negative.
Monitor white count and temperature curve.
Blood cultures have been repeated here; negative thus far
Results from [facility] reviewed on patient's phone and are noted below.
����������������������������������������������������������
Chief Complaint
-: Clinical Sepsis and Bacteremia
Subjective / Review of Systems
Review of Systems: No Fever and No Chills
Vital Signs / Physical Exam
Vital Signs
Vital Signs
Temp Pulse Resp BP Pulse Ox
97.6 F 64 17 136/82 98
12/31/23 07:55 12/31/23 07:55 12/31/23 07:55 12/31/23 07:55 12/31/23 07:55
Physical Exam
Constitutional: No Acute Distress, Comfortable and Non-toxic
Eyes: Sclera Anicteric
Pulmonary: Non Labored
Gastrointestinal: Non Distended
Skin: Negative Jaundice
Neurological: Awake and Alert
Psychological: Calm
Objective Data
Lab Data
Lab Results
12/30/23 07:02
12/30/23 07:02
Estimated Creat Clear > 125 ml/min 12/30/23 07:02
Total Bilirubin 1.7 mg/dl (0.2-1.3) H 12/31/23 07:08
AST 30 U/L (17-59) 12/31/23 07:08
ALT 42 U/L (0-50) 12/31/23 07:08
Alkaline Phosphatase 259 U/L (38-126) H 12/31/23 07:08
Most recent labs reviewed.
Micro Results:
12/29/23 13:00 Salmonella/Shigella Culture - Preliminary
Feces/Stool Culture in Progress
Campylobacter Culture - Preliminary
No Campylobacter species isolated.
Shiga Toxin Test - Pending
12/29/23 00:44 Blood Culture - Preliminary
Blood/Venous No Growth in 48 hours- Final report to follow
12/28/23 23:29 Blood Culture - Preliminary
Blood/Venous No Growth in 48 hours- Final report to follow
12/29/23 13:00 C. difficile GDH Antigen & Toxins - Final
Feces/Stool Negative for toxigenic C.difficile
- Final
Negative for Norovirus GI and GII.
12/29/23 13:00 Cryptosporidium/Giardia - Final
Feces/Stool Negative for Cryptosporidium and/or Giardia Lamblia
antigens.
12/29/23 13:00 Stool Leukocytes - Final
Feces/Stool
12/27/2023 Blood Culture
(Performed at [facility] in [facility]
Results viewed on patient's online portal
on 12/31/23 @ 13:00)
1. Klebsiella oxytoca
M.I.[facility]. RX
--------- ---
Amikacin <=16 S
Amoxicillin/Potas. Clavulanate
Ampicillin
Ampicillin/Sulbactam 8/4 S
Aztreonam <=4 S
Cefazolin 8 S
Cefepime <=2 S
Ceftazidime <=1 S
Ceftriaxone <=1 S
Ertapenem <=0.5 S
Ciprofloxacin <=0.25 S
Gentamicin <=4 S
Imipenam <=2 S
Levofloxacin <=0.5 S
Meropenem <=1 S
Piperacillin/Tazobactam <=8 S
Tobramycin <=2 S
Trimethoprim/Sulfamethoxazole <=0.5/9.5 S
Imaging:
12/29/2023 CT abdomen/pelvis with contrast: There is a grossly stable large pancreatic head neoplasm with associated local regional infiltration. Stable mild common bile duct stent and pneumobilia in keeping with patency. Redemonstration of upper
abdominal venous collaterals. Spleen, kidneys and adrenal glands are within normal limits. No free fluid or free air noted. Please see full dictation for additional detail.
[2023-12-31 15:15] VITALS: BP 129/63
[2023-12-31 17:24] LABS: Glucose - Point of Care 164 mg/dl (70-99)
[2023-12-31] MEDS: ZENPEP DELAYED RELEASE CAPSULE 1 CAPSULE PO ×2 (17:25→22:42)
[2023-12-31] MEDS: VITAMIN D3 (cholecalciferol) 125 MCG PO (17:25)
[2023-12-31] MEDS: PROSCAR 5 MG PO (17:25)
[2023-12-31] MEDS: LOVENOX 40 MG SC (17:26)
[2023-12-31 22:02] LABS: Glucose - Point of Care 151 mg/dl (70-99)
[2023-12-31] MEDS: CRESTOR 20 MG PO (22:41)
[2023-12-31] MEDS: DIOVAN 80 MG PO (22:41)
[2023-12-31] MEDS: TOPROL XL 50 MG PO (22:42)
[2023-12-31] MEDS: FLOMAX 0.400000000000000022 MG PO (22:42)
[2023-12-31 23:22] VITALS: BP 124/69
[2024-01-01] VITALS (11 sets, daily range): BP systolic 113–151; BP diastolic 63–85
[2024-01-01] MEDS: ZOSYN 50 IV ×4 (00:30→19:27)
[2024-01-01] MEDS: ROXICODONE 5 MG PO ×2 (00:31→20:51)
[2024-01-01 04:48] LABS: Hematocrit 27.4 % (39.0-52.0); Hemoglobin 9.5 g/dL (13.0-18.0); Mean Corp Hgb Conc. 34.7 g/dL (33.0-37.0); Mean Corpuscular Hgb 28.4 pg (27.0-31.0); Mean Platelet Volume 8.2 fL (7.4-10.4); Platelet Count 179 10^3/uL (130-400); Red Blood Cell Count 3.34 10^6/uL (4.70-6.10); Red Cell Dist. Width 13.7 % (11.5-14.5); White Blood Cell Count 2.5 10^3/uL (4.8-10.8)
[2024-01-01 05:33] LABS: ALT (SGPT) 71 U/L (0-50); AST (SGOT) 64 U/L (17-59); Albumin 3.1 g/dl (3.5-5.0); Alkaline Phosphatase 339 U/L (38-126); Blood Urea Nitrogen 11 mg/dl (9-20); Calcium 8.7 mg/dl (8.4-10.2); Carbon Dioxide 30 mmol/L (22-30); Chloride 94 mmol/L (98-107); Direct Bilirubin 0.3 mg/dl (0.0-0.4); Estimated Creatinine Clearance > 125 ml/min; Glucose 135 mg/dl (70-99); Potassium 3.1 mmol/L (3.5-5.1); Sodium 133 mmol/L (135-145); Total Bilirubin 1.5 mg/dl (0.2-1.3); Total Protein 5.7 g/dl (6.3-8.2); eGFR > 60.00
[2024-01-01 07:54] LABS: Glucose - Point of Care 150 mg/dl (70-99)
[2024-01-01] MEDS: NOVOLOG FLEXPEN-LOW RESISTANCE 1 UNITS SC ×2 (07:56→12:26)
[2024-01-01] MEDS: PROTONIX 40 MG PO ×2 (07:58→19:26)
[2024-01-01] MEDS: ZENPEP DELAYED RELEASE CAPSULE 1 CAPSULE PO ×4 (07:58→21:39)
[2024-01-01] MEDS: NON-FORMULARY ITEM 1 SPRAY NASAL (07:59)
[2024-01-01] MEDS: DURAGESIC 25 MCG/HR PATCH 1 PATCH TRANSDERM (09:01)
--- NOTE | 2024-01-01 09:54 | W.PN.HOSP.TC ---
Today's Communication/Plan
-
.
Assessment / Plan
Assessment / Plan
Physical Exam
General: Other (no acute distress, conversant)
HEENT: Moist mucous membranes and PERRLA
Respiratory: Clear; No Wheezes, Rales or Rhonchi
Cardiac: S1/S2 and Regular Rhythm; No Murmur
GI: Soft, Non Distended, Normal Bowel Sounds.
Musculoskeletal: No Clubbing, No Cyanosis and No Edema
Neuro: AO x 3, followed commands
Psych: Calm; No Anxious or Depressed
68-year-old male with history of metastatic pancreatic cancer with history of biliary stenting on chemotherapy presented to the hospital because of positive blood cultures as outpatient. His initial diagnosis was in October 2023 when he was
evaluated for weight loss. MRI showed 5 cm pancreatic adenocarcinoma with significant hepatopathy and suspicions for metastatic disease. He had EUS/ERCP with biliary sphincterotomy with stent placement and biopsy. He follows with Dr. Anderson
José� at [facility]. Patient had fevers a month ago with intermittent GI symptoms workup was negative and antibiotics were held. Patient was felt to have tumor fevers at that time. He was discharged home and had more chemo. Patient
does not know exact chemo regimen but thinks he is on 3 drug regimen and last dose was this past Monday which is 12/27/2023. He has been having some diarrhea with vomiting as well. On his way there. He was given chemotherapy and sent home.
Patient still has diarrhea.
12/28/2023 CT A/P w/ IV and oral-Stable ill-defined pancreatic head mass causing severe narrowing at the portal splenic confluence and proximal SMV as well as circumferential encasement of the SMA with associated upstream main pancreatic ductal
dilation.� Stable peripancreatic likely metastatic lymph nodes.� Stable mild common bile duct stent and pneumobilia keeping in with patency.�
# Positive blood cultures- Klebsiella bacteremia. �suspect GI source
Checked on patient's phone -seems to be susceptible to all the antibiotics
Likely source biliary
Repeat cultures here are negative
Negative C- diff
Appreciate ID help
# Possible biliary stent exchange today by Dr Petty as stent could be source of infection
NPO this morning
# Chemotherapy induced pancytopenia HGB around 9
WBC 2.5
Plt 179
Transfuse PRN
# Hypokalemia
replace
# Hyponatremia
# hypomagnesemia
Replace
#NVD
He denies nausea this morning
All stool studies were negative at [facility]
Symptomatic treatment
Had diarrhea
He takes Creon w- Zofran PRN
# Paroxysmal atrial fibrillation
On Eliquis as OP On Hold for GI Procedure
Did Lovenox twice daily and held Lovenox dose evening of 12/31/2023, for GI procedure 01/01.
Restart AC when OK with GI
Continue metoprolol
# Primary Hypertension-on metoprolol and valsartan as outpatient
#Hyperlipidemia on statin
# Diabetes-on metformin
Hold metformin
# Prostate disease-on dutasteride and Rapaflo as outpatient continue
# History of lung cancer status post lobectomy in 2020
# GERD/hiatal hernia-continue PPI
# History of Cr
# Arthritis/sciatica
# Sleep apnea-continue CPAP
# Diverticulosis
# DVT Prophylaxis- was on Lovenox
Total time spent to see the patient, examine the patient on the floor, review data and lab results, discuss treatment plan with patient, nursing staff around 55 minutes
Anticipated Discharge: 24 - 48 hours
Subjective/Interval History
-
Date of Service: January 01, 2024
Denied abd pain or chest pain
Objective Data
-
Labs:
Laboratory Results
01/01/24
04:39
WBC 2.5 L
Hgb 9.5 L
Hct 27.4 L
Plt Count 179 D
Sodium 133 L
Potassium 3.1 L
Chloride 94 L
Carbon Dioxide 30
BUN 11
Creatinine 0.5 L
Glucose 135 H
Calcium 8.7
Total Bilirubin 1.5 H
AST 64 H
ALT 71 H
Alkaline Phosphatase 339 H
Vital Signs:
Vital Signs
Temp Pulse Resp BP Pulse Ox
97.3 F 70 16 120/70 97
01/01/24 07:51 01/01/24 07:51 01/01/24 07:51 01/01/24 07:51 01/01/24 07:51
I&O
12/31/23 01/01/24 01/02/24
06:59 06:59 06:59
Intake Total 1240 / 1240 1580 / 1580
Output Total 3 / 3
Balance 1237 / 1237 1580 / 1580
--- NOTE | 2024-01-01 10:01 | W.PN.GI.CBS2 ---
Addendum entered and electronically signed by Lila Lozano MD 01/01/24 15:38:
I saw and examined the patient.
The FINANCIAL UNDERWRITER or PA's note was reviewed and I agree with the note.
Comment: 68 yo pmh met panc Ca s/p biliary stenting with Dr. Petty on chemo follows at [facility], lung ca, a fib on Eliquis p/w + blood cultures outpatient at [place] - Klebsiella per oncologist at [place] who I spoke with 12/29.� Patient with n/v/d
on way to chemo and ongoing n/v after chemo, as well as abd pain (tender on exam in lower abd).� LFTs here normal bili, CT is stable.� UA is clear.� Kleb can be biliary.
Patient having some pain but better today on clears
Recommendations:
- Trend LFTs - bili indirect
- Stool studies all negative will order imodium prn
- Appreciate ID consult
- Plan for stent exchange with Dr. Petty today or tomorrow, clear liquids in interim
Original Note:
Today's Communication / Plan
-
no fever overnight
on clear diet will add enlive clear with wt loss
possible biliary exchange today if able to fit on schedule-- I spoke with GI labs with clear liquid diet will need to call if NPO needed
Eliquis hold
trend LFT's
stool studies neg so far
ID following for abx remains on Zosyn
replete K per hospitalist
Assessment / Plan
-
68 yo with met panc Ca s/p biliary stenting with Dr. Petty on chemo follows at [facility], lung ca, a fib on Eliquis p/w + blood cultures outpatient at [place] - Klebsiella per oncologist at [place] who I spoke with 12/29.� Patient with n/v/d on way
to chemo and ongoing n/v after chemo, as well as abd pain (tender on exam in lower abd).� LFTs here normal bili, CT is stable.� UA is clear.� Kleb can be biliary but would expect LFTs to be up.�
-klebsiella bacteremia
-panc CA with biliary stenting on chemo
-n/v/diarrhea on admission
-hypokalemia
afib
BPH
DM
Recommendations:
no fever overnight
on clear diet will add enlive clear with wt loss
possible biliary exchange today if able to fit on schedule-- I spoke with GI labs with clear liquid diet will need to call if NPO needed
Eliquis hold
trend LFT's
stool studies neg so far
ID following for abx remains on Zosyn
replete K per hospitalist
Subjective
Subjective
Date of Service: January 01, 2024
on clear diet possible ERCP later today pending schedule some abdominal pain several days ago now stable
Objective
Data Reviewed
Laboratory Data:
Laboratory Results
01/01/24 04:39
01/01/24 04:39
Laboratory Results
Magnesium 1.7 mg/dl (1.6-2.3) 12/29/23 05:32
Total Bilirubin 1.5 mg/dl (0.2-1.3) H 01/01/24 04:39
AST 64 U/L (17-59) H 01/01/24 04:39
ALT 71 U/L (0-50) H 01/01/24 04:39
Alkaline Phosphatase 339 U/L (38-126) H 01/01/24 04:39
Vital Signs and I&O:
Vital Signs
Temp Pulse Resp BP Pulse Ox
97.3 F 70 16 120/70 97
01/01/24 07:51 01/01/24 07:51 01/01/24 07:51 01/01/24 07:51 01/01/24 07:51
I&O
12/31/23 01/01/24 01/02/24
06:59 06:59 06:59
Intake Total 1240 / 1240 1580 / 1580
Output Total
Balance 1237 / 1237 1580 / 1580
Physical Exam
Physical Exam
HEENT: Anicteric and Moist mucous membranes
Cardiology: Normal Sinus Rhythm
Pulmonary: Clear
GI: Soft, Non Distended and Non Tender
Extremities: No Edema
Neuro: Non Focal
[2024-01-01] MEDS: FLUSH (NSS) 2 FLUSH IV (10:39)
[2024-01-01] MEDS: MAGNESIUM SULFATE 102 GRAMS IV (10:40)
[2024-01-01] MEDS: KCL 270 MEQ IV (10:40)
--- NOTE | 2024-01-01 10:42 | W.PN.ID1 ---
Date of Service
Date of Service: January 01, 2024
Today's Communication
Continue antibiotics.
Assessment / Plan
Klebsiella bacteremia; suspect GI source
Pancreatic cancer; currently on chemotherapy
- stent in place.
A-fib
BPH
Diabetes
Recommendations:
Continue with Zosyn for the present.
Monitor white count and temperature curve.
Blood cultures have been repeated here; negative thus far
Results from [facility] reviewed on patient's phone and are noted below.
For possible biliary stent exchange later today.
����������������������������������������������������������
Chief Complaint
-: Clinical Sepsis and Bacteremia
Subjective / Review of Systems
Review of Systems: No Fever, No Chills and No Abdominal Pain
Vital Signs / Physical Exam
Vital Signs
Vital Signs
Temp Pulse Resp BP Pulse Ox
97.3 F 70 16 120/70 97
01/01/24 07:51 01/01/24 07:51 01/01/24 07:51 01/01/24 07:51 01/01/24 07:51
Physical Exam
Constitutional: No Acute Distress, Comfortable and Non-toxic
Eyes: No Conjunctival Hemorrhage and Sclera Anicteric
Pulmonary: Non Labored
Gastrointestinal: Non Distended
Extremities: Negative Cyanosis or Erythema
Skin: Negative Rash or Jaundice
Neurological: Awake and Alert
Psychological: Calm
Objective Data
Lab Data
Lab Results
01/01/24 04:39
01/01/24 04:39
Estimated Creat Clear > 125 ml/min 01/01/24 04:39
Total Bilirubin 1.5 mg/dl (0.2-1.3) H 01/01/24 04:39
AST 64 U/L (17-59) H 01/01/24 04:39
ALT 71 U/L (0-50) H 01/01/24 04:39
Alkaline Phosphatase 339 U/L (38-126) H 01/01/24 04:39
Most recent labs reviewed.
Micro Results:
12/29/23 13:00 Salmonella/Shigella Culture - Preliminary
Feces/Stool Culture in Progress
Campylobacter Culture - Preliminary
No Campylobacter species isolated.
Shiga Toxin Test - Final
No E. coli Shiga Toxin 1 or 2 detected.
12/29/23 00:44 Blood Culture - Preliminary
Blood/Venous No Growth in 72 hours- Final report to follow
12/28/23 23:29 Blood Culture - Preliminary
Blood/Venous No Growth in 72 hours- Final report to follow
12/29/23 13:00 C. difficile GDH Antigen & Toxins - Final
Feces/Stool Negative for toxigenic C.difficile
- Final
Negative for Norovirus GI and GII.
12/29/23 13:00 Cryptosporidium/Giardia - Final
Feces/Stool Negative for Cryptosporidium and/or Giardia Lamblia
antigens.
12/29/23 13:00 Stool Leukocytes - Final
Feces/Stool
12/27/2023 Blood Cultures
Performed at [facility] in [facility]
Results viewed on patient's online portal
on 12/31/23 @ 13:00
1. Klebsiella oxytoca
M.I.C. RX
--------- ---
Amikacin <=16 S
Amoxicillin/Potas. Clavulanate
Ampicillin
Ampicillin/Sulbactam 8/4 S
Aztreonam <=4 S
Cefazolin 8 S
Cefepime <=2 S
Ceftazidime <=1 S
Ceftriaxone <=1 S
Ertapenem <=0.5 S
Ciprofloxacin <=0.25 S
Gentamicin <=4 S
Imipenam <=2 S
Levofloxacin <=0.5 S
Meropenem <=1 S
Piperacillin/Tazobactam <=8 S
Tobramycin <=2 S
Trimethoprim/Sulfamethoxazole <=0.5/9.5 S
Imaging:
12/29/2023 CT abdomen/pelvis with contrast: There is a grossly stable large pancreatic head neoplasm with associated local regional infiltration. Stable mild common bile duct stent and pneumobilia in keeping with patency. Redemonstration of upper
abdominal venous collaterals. Spleen, kidneys and adrenal glands are within normal limits. No free fluid or free air noted. Please see full dictation for additional detail.
[2024-01-01 11:47] LABS: Glucose - Point of Care 170 mg/dl (70-99)
--- NOTE | 2024-01-01 16:48 | CM ---
Chart reviewed
Remains on antibiotics
Poss stent change
ID, GI following
CM following for d/c needs
[2024-01-01 17:59] LABS: Glucose - Point of Care 130 mg/dl (70-99)
[2024-01-01] MEDS: NOVOLOG FLEXPEN-LOW RESISTANCE SC (18:05)
[2024-01-01] MEDS: DILAUDID 0.5 MG IV ×2 (18:13→18:24)
[2024-01-01] MEDS: DILAUDID 0.25 MG IV (18:33)
[2024-01-01] MEDS: PROSCAR 5 MG PO (19:27)
[2024-01-01] MEDS: LOVENOX 40 MG SC (19:27)
[2024-01-01] MEDS: VITAMIN D3 (cholecalciferol) 125 MCG PO (19:27)
[2024-01-01] MEDS: TOPROL XL 50 MG PO (21:39)
[2024-01-01] MEDS: FLOMAX 0.400000000000000022 MG PO (21:39)
[2024-01-01] MEDS: DIOVAN 80 MG PO (21:40)
[2024-01-01] MEDS: CRESTOR 20 MG PO (21:40)
[2024-01-02] MEDS: ZOSYN 50 IV ×4 (00:20→18:18)
[2024-01-02] MEDS: ROXICODONE 5 MG PO ×2 (00:56→06:10)
[2024-01-02 03:45] VITALS: BP 124/71
[2024-01-02 04:56] LABS: Hematocrit 26.4 % (39.0-52.0); Hemoglobin 9.2 g/dL (13.0-18.0); Mean Corp Hgb Conc. 34.8 g/dL (33.0-37.0); Mean Corpuscular Hgb 28.4 pg (27.0-31.0); Mean Corpuscular Volume 81.5 fL (80.0-94.0); Mean Platelet Volume 8.5 fL (7.4-10.4); Platelet Count 175 10^3/uL (130-400); Red Blood Cell Count 3.24 10^6/uL (4.70-6.10); Red Cell Dist. Width 13.7 % (11.5-14.5)
[2024-01-02 05:03] LABS: White Blood Cell Count 2.1 10^3/uL (4.8-10.8)
[2024-01-02 05:22] LABS: ALT (SGPT) 66 U/L (0-50); AST (SGOT) 41 U/L (17-59); Albumin 3.2 g/dl (3.5-5.0); Alkaline Phosphatase 317 U/L (38-126); Blood Urea Nitrogen 11 mg/dl (9-20); Calcium 8.6 mg/dl (8.4-10.2); Carbon Dioxide 30 mmol/L (22-30); Chloride 96 mmol/L (98-107); Estimated Creatinine Clearance > 125 ml/min; Glucose 161 mg/dl (70-99); Potassium 3.8 mmol/L (3.5-5.1); Sodium 134 mmol/L (135-145); Total Bilirubin 1.1 mg/dl (0.2-1.3); Total Protein 5.7 g/dl (6.3-8.2); eGFR > 60.00
[2024-01-02 07:20] VITALS: BP 132/77
[2024-01-02 07:20] LABS: Glucose - Point of Care 129 mg/dl (70-99)
[2024-01-02] MEDS: NOVOLOG FLEXPEN-LOW RESISTANCE SC (08:45)
[2024-01-02] MEDS: PROTONIX 40 MG PO ×2 (08:45→19:28)
[2024-01-02] MEDS: ZENPEP DELAYED RELEASE CAPSULE 1 CAPSULE PO ×4 (08:45→21:00)
[2024-01-02] MEDS: NON-FORMULARY ITEM 1 SPRAY NASAL (08:46)
[2024-01-02] MEDS: DILAUDID 1 MG IV ×4 (08:57→22:18)
--- NOTE | 2024-01-02 09:45 | W.PN.HOSP.TC ---
Today's Communication/Plan
-
.
Assessment / Plan
Assessment / Plan
Physical Exam
General: Other (no acute distress, conversant)
HEENT: Moist mucous membranes and PERRLA
Respiratory: Clear; No Wheezes, Rales or Rhonchi
Cardiac: S1/S2 and Regular Rhythm; No Murmur
GI: Soft, Non Distended, Normal Bowel Sounds.
Musculoskeletal: No Clubbing, No Cyanosis and No Edema
Neuro: AO x 3, followed commands
Psych: Calm; No Anxious or Depressed
68-year-old male with history of metastatic pancreatic cancer with history of biliary stenting on chemotherapy presented to the hospital because of positive blood cultures as outpatient. His initial diagnosis was in October 2023 when he was
evaluated for weight loss. MRI showed 5 cm pancreatic adenocarcinoma with significant hepatopathy and suspicions for metastatic disease. He had EUS/ERCP with biliary sphincterotomy with stent placement and biopsy. He follows with Dr. Anderson
José� at [facility]. Patient had fevers a month ago with intermittent GI symptoms workup was negative and antibiotics were held. Patient was felt to have tumor fevers at that time. He was discharged home and had more chemo. Patient
does not know exact chemo regimen but thinks he is on 3 drug regimen and last dose was this past Monday which is 12/27/2023. He has been having some diarrhea with vomiting as well. On his way there. He was given chemotherapy and sent home.
Patient still has diarrhea.
12/28/2023 CT A/P w/ IV and oral-Stable ill-defined pancreatic head mass causing severe narrowing at the portal splenic confluence and proximal SMV as well as circumferential encasement of the SMA with associated upstream main pancreatic ductal
dilation.� Stable peripancreatic likely metastatic lymph nodes.� Stable mild common bile duct stent and pneumobilia keeping in with patency.�
# Positive blood cultures- Klebsiella bacteremia. �suspect GI source
Checked on patient's phone -seems to be susceptible to all the antibiotics
Likely source biliary
Repeat cultures here are negative
Negative C- diff
Appreciate ID help
# Possible biliary stent exchange on 01/[address] Petty as stent could be source of infection
Status post sweeping and sludge/debris's removal with exchange of stents. No complications reported. Patient is experiencing postprocedure epigastric discomfort. Seems Dilaudid 2 are better than oxycodone. Hold oxycodone for now continue with
low-dose Dilaudid for moderate pain, high-dose Dilaudid for severe pain. Continue with liquid diet and advance as tolerated. Liver function status seems to be normalized. Total bilirubin is normal.
Appreciate GI help.
# Chemotherapy induced pancytopenia HGB around 9
WBC 2.1
Plt 175
Transfuse PRN
# Hypokalemia. K is 3.8.
replaced
# Hyponatremia
# hypomagnesemia
Replaced
#NVD
He denies nausea this morning
All stool studies were negative at [facility]
Symptomatic treatment
Had diarrhea. Negative stool studies.
He takes Creon w- Zofran PRN
# Paroxysmal atrial fibrillation
On Eliquis as OP On Hold for GI Procedure
Did Lovenox twice daily and held Lovenox dose evening of 12/31/2023, for GI procedure 01/01.
Restart AC when OK with GI
Continue metoprolol
# Primary Hypertension-on metoprolol and valsartan as outpatient
#Hyperlipidemia on statin
# Diabetes-on metformin
Hold metformin
# Prostate disease-on dutasteride and Rapaflo as outpatient continue
# History of lung cancer status post lobectomy in 2020
# GERD/hiatal hernia-continue PPI
# History of Cr
# Arthritis/sciatica
# Sleep apnea-continue CPAP
# Diverticulosis
# DVT Prophylaxis- was on Lovenox
Total time spent to see the patient, examine the patient on the floor, review data and lab results, discuss treatment plan with patient, nursing staff around 55 minutes
Anticipated Discharge: 24 - 48 hours
Subjective/Interval History
-
Date of Service: January 02, 2024
Reports epigastric tenderness
no nausea
Objective Data
-
Labs:
Laboratory Results
01/02/24
04:40
WBC 2.1 L*
Hgb 9.2 L
Hct 26.4 L
Plt Count 175
Sodium 134 L
Potassium 3.8
Chloride 96 L
Carbon Dioxide 30
BUN 11
Creatinine 0.5 L
Glucose 161 H
Calcium 8.6
Total Bilirubin 1.1
AST 41
ALT 66 H
Alkaline Phosphatase 317 H
Vital Signs:
Vital Signs
Temp Pulse Resp BP Pulse Ox
97.8 F 67 17 132/77 97
01/02/24 07:20 01/02/24 07:20 01/02/24 07:20 01/02/24 07:20 01/02/24 07:20
I&O
01/01/24 01/02/24 01/03/24
06:59 06:59 06:59
Intake Total 1580 / 1580 2029
Balance 1580 / 1580 2029
--- NOTE | 2024-01-02 09:58 | PN.CDI ---
Addendum entered and electronically signed by Fausto Seay MD 01/02/24 10:08:
Opioid dependence
Original Note:
CDI
- -
CDI:
Physician Documentation Request
Admit Date: 12/29/23 01:42
Dear Doctor Geena,
Patient admitted for bacteremia.
Home medications:
-Fentanyl Patch transdermal Q72 hours
-Oxycodone 5mg PO Q4
01/02 Hospitalist PN: ' Seems Dilaudid 2 are better than oxycodone. Hold oxycodone for now continue with low-dose Dilaudid for moderate pain, high-dose Dilaudid for severe pain.'
If possible, please provide further specificity as outlined below:
Opioid dependence
Opioid use
Other
Use of terms such as suspected, likely, concern for, or probable (associated with a specific diagnosis that is being evaluated, monitored, or treated as if it exists) are acceptable and can be coded in the inpatient setting, when documented at the
time of discharge.
Thank you,
Kimberly Aragon RN, BSN
CDI Specialist
Available via [employer] text
Please use your independent medical judgment in providing your response.
--- NOTE | 2024-01-02 10:20 | W.PN.GI.CBS2 ---
Addendum entered and electronically signed by Ninfa Anna Do, MD 01/02/24 16:38:
My office will reach out to arrange OP follow up for pt with Dr Petty
Will plan for ERCP stent exchange in 3 months time.
Outpatient d/c instructions updated
Addendum entered and electronically signed by Ninfa Anna Do, MD 01/02/24 15:21:
I saw and examined the patient.
The STONECUTTER HAND's note was reviewed and I agree with the note.
Comment: He feels well. Tolerating FLD. Vitals stable. Exam mild TTP epigastric area. Labs reviewed LFTs downtrending. Blood cultures now NGTD from 12/29
Recommendations
- S/p ERCP 01/01 with stent exchange by Dr Petty
- Ok to resume anticoagulation today
- Advance to low fat diet
At this juncture GI will sign off please call for questions.
Original Note:
Today's Communication / Plan
-
Full liquid today, then low fat tomorrow if tolerates
Abx per ID
Assessment / Plan
-
68 yo with met panc Ca s/p biliary stenting with Dr. Petty on chemo follows at [facility], lung ca, a fib on Eliquis p/w + blood cultures outpatient at [place] - Klebsiella per oncologist at [place] who I spoke with 12/29.� Patient with n/v/d on way
to chemo and ongoing n/v after chemo, as well as abd pain (tender on exam in lower abd).�
01/01/24 ERCP:
- One stent from the common bile duct was seen in the
�� � � � � � � � � � � major papilla.
�� � � � � � � � � � � - One stent from the biliary tree was seen in the
�� � � � � � � � � � � major papilla.
�� � � � � � � � � � � - The examination was suspicious for debris, sludge,
�� � � � � � � � � � � and stones.
�� � � � � � � � � � � - Choledocholithiasis was found. Complete removal was
�� � � � � � � � � � � accomplished by balloon extraction.
�� � � � � � � � � � � - One stent was removed from the biliary tree.
�� � � � � � � � � � � - The biliary tree was swept and debris and sludge
�� � � � � � � � � � � were found. During the balloon sweep maneuver,
�� � � � � � � � � � � previously placed uncovered metal stent migrated out.
�� � � � � � � � � � � - One stent was removed from the biliary tree.
�� � � � � � � � � � � - One uncovered metal stent was placed into the common
�� � � � � � � � � � � bile duct.
�� � � � � � � � � � � - One plastic stent was placed into the right hepatic
�� � � � � � � � � � � duct.
Recommendation:� � � �
- Return patient to referring hospital for ongoing
�� � � � � � � � � � � care.
�� � � � � � � � � � � - Clear liquid diet today.
�� � � � � � � � � � � - Check liver enzymes (AST, ALT, alkaline phosphatase,
�� � � � � � � � � � � bilirubin) tomorrow.
�� � � � � � � � � � � - Return to referring physician as previously
�� � � � � � � � � � � scheduled.
�� � � � � � � � � � � - Resume Eliquis (apixaban) at prior dose tomorrow.
Impression:
-klebsiella bacteremia
-panc CA with biliary stenting on chemo
-choledocholithiasis s/p ERCP, balloon sweep, stone extraction, stent exchange and stent placement.
-n/v/diarrhea on admission-> resolved
-hypokalemia-> resolved
afib
BPH
DM
Recommendations:
-on clear diet will add enlive clear with wt loss. Ok to increase diet to full liquid today and low fat tomorrow as tolerates.
-Continue Abx, per ID.
-Ok to resume Eliquis
-trend LFT's
Subjective
Subjective
Date of Service: January 02, 2024
Patient with chronic periumbilical pain, no different from prior pain. Patient is s/p ERCP yesterday with choledocholithiasis found, removed with balloon extraction. One plastic stent removed biliary tree. During balloon sweep previously placed
uncovered metal stent migrated out. This was then removed. One 10 mm by 4 cm uncovered metal stent with no flaps was placed 3 cm into CBD. One 10 Fr by 7 cm transpapillary plastic stent with full external pigtail was placed into the right hepatic
duct with good bile flow. Patient tolerating clear liquid/Ensure clear without any difficulty. This is not changing the quality of his pain. He is passing flatus, he has not had BM in the past 24 hrs. LFTs are improving. T Bili 1.1 (1.5), AST 41
(64), ALT 66 (71), Alk Phos 317 (339).
Objective
Data Reviewed
Laboratory Data:
Laboratory Results
01/02/24 04:40
01/02/24 04:40
Laboratory Results
Magnesium 1.7 mg/dl (1.6-2.3) 12/29/23 05:32
Total Bilirubin 1.1 mg/dl (0.2-1.3) 01/02/24 04:40
AST 41 U/L (17-59) 01/02/24 04:40
ALT 66 U/L (0-50) H 01/02/24 04:40
Alkaline Phosphatase 317 U/L (38-126) H 01/02/24 04:40
Vital Signs and I&O:
Vital Signs
Temp Pulse Resp BP Pulse Ox
97.8 F 67 17 132/77 97
01/02/24 07:20 01/02/24 07:20 01/02/24 07:20 01/02/24 07:20 01/02/24 07:20
I&O
01/01/24 01/02/24 01/03/24
06:59 06:59 06:59
Intake Total 1580 / 1580 2029
Balance 1580 / 1580 2029
Physical Exam
Physical Exam
HEENT: Anicteric
Cardiology: Normal Sinus Rhythm
Pulmonary: Clear (anterior)
GI: Soft, Non Distended, Tender (periumbilical ) and Normal Bowel Sounds
Extremities: No Edema
Neuro: Non Focal
[2024-01-02 11:15] VITALS: BP 116/63
[2024-01-02 11:58] LABS: Glucose - Point of Care 151 mg/dl (70-99)
[2024-01-02] MEDS: NOVOLOG FLEXPEN-LOW RESISTANCE 1 UNITS SC ×2 (12:15→16:50)
--- NOTE | 2024-01-02 13:45 | CM ---
Patient seen at bedside. Patient s/p stent removal and plan is for home with VN pending patient IV vs PO antibiotic needs. Patient indicated that he was planning on having his sister come to assist him as needed. CM will continue to follow for
discharge planning needs.
Plan; home with no needs vs home with VN. watch antibiotic needs.
--- NOTE | 2024-01-02 15:13 | W.PN.ID1 ---
Date of Service
Date of Service: January 02, 2024
Today's Communication
Continue antibiotics. See below�
Assessment / Plan
Klebsiella bacteremia; suspect GI source
Pancreatic cancer; currently on chemotherapy
- stent in place.
A-fib
BPH
Diabetes
Recommendations:
Continue with Zosyn for the present.
Monitor white count and temperature curve.
Blood cultures have been repeated here; negative thus far
Results from [facility] reviewed on patient's phone and are noted below.
S/P biliary stent exchange.
At discharge, transition to oral cefdinir 300 mg twice daily, to continue for an additional 7 days.
����������������������������������������������������������
Chief Complaint
-: Clinical Sepsis and Bacteremia
Subjective / Review of Systems
Review of Systems: No Fever and No Chills
Vital Signs / Physical Exam
Vital Signs
Vital Signs
Temp Pulse Resp BP Pulse Ox
97.5 F 73 17 116/63 98
01/02/24 11:15 01/02/24 11:15 01/02/24 11:15 01/02/24 11:15 01/02/24 11:15
Physical Exam
Constitutional: No Acute Distress, Comfortable and Non-toxic
Eyes: Sclera Anicteric
Pulmonary: Non Labored
Neurological: Awake and Alert
Psychological: Calm
Objective Data
Lab Data
Lab Results
01/02/24 04:40
01/02/24 04:40
Estimated Creat Clear > 125 ml/min 01/02/24 04:40
Total Bilirubin 1.1 mg/dl (0.2-1.3) 01/02/24 04:40
AST 41 U/L (17-59) 01/02/24 04:40
ALT 66 U/L (0-50) H 01/02/24 04:40
Alkaline Phosphatase 317 U/L (38-126) H 01/02/24 04:40
Most recent labs reviewed.
Micro Results:
12/29/23 00:44 Blood Culture - Preliminary
Blood/Venous No Growth in 4 days- Final report to follow
12/28/23 23:29 Blood Culture - Preliminary
Blood/Venous No Growth in 4 days- Final report to follow
12/29/23 13:00 Salmonella/Shigella Culture - Final
Feces/Stool No Salmonella, Shigella, Aeromonas or Plesiomonas species
isolated.
Campylobacter Culture - Final
No Campylobacter species isolated.
Shiga Toxin Test - Final
No E. coli Shiga Toxin 1 or 2 detected.
12/29/23 13:00 C. difficile GDH Antigen & Toxins - Final
Feces/Stool Negative for toxigenic C.difficile
- Final
Negative for Norovirus GI and GII.
12/29/23 13:00 Cryptosporidium/Giardia - Final
Feces/Stool Negative for Cryptosporidium and/or Giardia Lamblia
antigens.
12/29/23 13:00 Stool Leukocytes - Final
Feces/Stool
12/27/2023 Blood Cultures
Performed at [facility]
Results viewed on patient's online portal
on 12/31/23 @ 13:00
1. Klebsiella oxytoca
M.I.C. RX
--------- ---
Amikacin <=16 S
Amoxicillin/Potas. Clavulanate
Ampicillin
Ampicillin/Sulbactam 8/4 S
Aztreonam <=4 S
Cefazolin 8 S
Cefepime <=2 S
Ceftazidime <=1 S
Ceftriaxone <=1 S
Ertapenem <=0.5 S
Ciprofloxacin <=0.25 S
Gentamicin <=4 S
Imipenam <=2 S
Levofloxacin <=0.5 S
Meropenem <=1 S
Piperacillin/Tazobactam <=8 S
Tobramycin <=2 S
Trimethoprim/Sulfamethoxazole <=0.5/9.5 S
Imaging:
12/29/2023 CT abdomen/pelvis with contrast: There is a grossly stable large pancreatic head neoplasm with associated local regional infiltration. Stable mild common bile duct stent and pneumobilia in keeping with patency. Redemonstration of upper
abdominal venous collaterals. Spleen, kidneys and adrenal glands are within normal limits. No free fluid or free air noted. Please see full dictation for additional detail.
[2024-01-02 15:30] VITALS: BP 118/70
[2024-01-02] MEDS: MIRALAX 17 GRAMS PO (16:41)
[2024-01-02 16:56] LABS: Glucose - Point of Care 166 mg/dl (70-99)
[2024-01-02 18:06] LABS: Glucose - Point of Care 162 mg/dl (70-99)
[2024-01-02] MEDS: PROSCAR 5 MG PO (18:18)
[2024-01-02] MEDS: VITAMIN D3 (cholecalciferol) 125 MCG PO (18:18)
[2024-01-02] MEDS: LOVENOX 40 MG SC (18:19)
[2024-01-02 19:46] VITALS: BP 122/64
[2024-01-02] MEDS: DIOVAN 80 MG PO (21:00)
[2024-01-02] MEDS: CRESTOR 20 MG PO (21:00)
[2024-01-02] MEDS: FLOMAX 0.400000000000000022 MG PO (21:00)
[2024-01-02] MEDS: TOPROL XL 50 MG PO (21:00)
[2024-01-02 22:03] LABS: Glucose - Point of Care 184 mg/dl (70-99)
[2024-01-02 23:58] VITALS: BP 129/61
[2024-01-03] MEDS: ZOSYN 50 IV ×2 (00:25→05:59)
[2024-01-03] MEDS: DILAUDID 0.5 MG IV ×6 (02:40→22:39)
--- NOTE | 2024-01-03 04:11 | DOWNTIME ---
There was a Interventional Imaging Client Industrial Psychologist Downtime on 01/03/2024 from 0111 to 01/03/2024 at 0405. Downtime documentation of patient's care, including medication administrations, has been reconciled in the electronic record per guidelines. Refer to the
patient's paper chart under the miscellaneous tab to see printed paper medication records and downtime forms.
[2024-01-03 05:17] LABS: % Basophils 0.6 % (0-2); % Eosinophils 0.6 % (0-6); % Immature Granulocytes 1.1 % (0-0.5); % Lymphocytes 41.9 % (20.5-51.1); % Monocytes 0.8 % (1.7-9.3); Absolute Lymphocytes 1.5 10^3/uL (1.2-3.4); Absolute Neutrophils 1.9 10^3/uL (1.4-6.5); Hematocrit 26.3 % (39.0-52.0); Hemoglobin 9.1 g/dL (13.0-18.0); Mean Corp Hgb Conc. 34.6 g/dL (33.0-37.0); Mean Corpuscular Hgb 28.2 pg (27.0-31.0); Mean Corpuscular Volume 81.4 fL (80.0-94.0); Mean Platelet Volume 8.4 fL (7.4-10.4); Nucleated Red Blood Cells % 0 % (-); Platelet Count 196 10^3/uL (130-400); Red Blood Cell Count 3.23 10^6/uL (4.70-6.10); Red Cell Dist. Width 13.9 % (11.5-14.5); White Blood Cell Count 3.5 10^3/uL (4.8-10.8)
[2024-01-03 05:41] LABS: ALT (SGPT) 63 U/L (0-50); AST (SGOT) 45 U/L (17-59); Albumin 3.3 g/dl (3.5-5.0); Alkaline Phosphatase 282 U/L (38-126); Blood Urea Nitrogen 12 mg/dl (9-20); Calcium 8.2 mg/dl (8.4-10.2); Carbon Dioxide 27 mmol/L (22-30); Chloride 101 mmol/L (98-107); Direct Bilirubin 0.5 mg/dl (0.0-0.4); Estimated Creatinine Clearance > 125 ml/min; Glucose 141 mg/dl (70-99); Potassium 3.2 mmol/L (3.5-5.1); Sodium 133 mmol/L (135-145); Total Bilirubin 0.8 mg/dl (0.2-1.3); Total Protein 5.8 g/dl (6.3-8.2); eGFR > 60.00
[2024-01-03 07:00] VITALS: BP 115/66
[2024-01-03 08:03] LABS: Glucose - Point of Care 134 mg/dl (70-99)
[2024-01-03] MEDS: ZENPEP DELAYED RELEASE CAPSULE 1 CAPSULE PO ×4 (08:14→21:10)
[2024-01-03] MEDS: MIRALAX 17 GRAMS PO (08:14)
[2024-01-03] MEDS: PROTONIX 40 MG PO ×2 (08:14→19:24)
[2024-01-03] MEDS: NOVOLOG FLEXPEN-LOW RESISTANCE SC ×2 (08:14→17:34)
[2024-01-03] MEDS: NON-FORMULARY ITEM 1 SPRAY NASAL (08:14)
--- NOTE | 2024-01-03 08:52 | W.PN.HOSP.TC ---
Today's Communication/Plan
-
dc in am
Assessment / Plan
Assessment / Plan
Physical Exam
General: Other (no acute distress, conversant)
HEENT: Moist mucous membranes and PERRLA
Respiratory: Clear; No Wheezes, Rales or Rhonchi
Cardiac: S1/S2 and Regular Rhythm; No Murmur
GI: Soft, Non Distended, Normal Bowel Sounds.
Musculoskeletal: No Clubbing, No Cyanosis and No Edema
Neuro: AO x 3, followed commands
Psych: Calm; No Anxious or Depressed
68-year-old male with history of metastatic pancreatic cancer with history of biliary stenting on chemotherapy presented to the hospital because of positive blood cultures as outpatient. His initial diagnosis was in October 2023 when he was
evaluated for weight loss. MRI showed 5 cm pancreatic adenocarcinoma with significant hepatopathy and suspicions for metastatic disease. He had EUS/ERCP with biliary sphincterotomy with stent placement and biopsy. He follows with Dr. Anderson
José� at [facility]. Patient had fevers a month ago with intermittent GI symptoms workup was negative and antibiotics were held. Patient was felt to have tumor fevers at that time. He was discharged home and had more chemo. Patient
does not know exact chemo regimen but thinks he is on 3 drug regimen and last dose was this past Monday which is 12/27/2023. He has been having some diarrhea with vomiting as well. On his way there. He was given chemotherapy and sent home.
Patient still has diarrhea.
12/28/2023 CT A/P w/ IV and oral-Stable ill-defined pancreatic head mass causing severe narrowing at the portal splenic confluence and proximal SMV as well as circumferential encasement of the SMA with associated upstream main pancreatic ductal
dilation.� Stable peripancreatic likely metastatic lymph nodes.� Stable mild common bile duct stent and pneumobilia keeping in with patency.�
# Positive blood cultures- Klebsiella bacteremia. �suspect GI source
Checked on patient's phone -seems to be susceptible to all the antibiotics
Likely source biliary
Repeat cultures here are negative
Negative C- diff
Per ID: At discharge, transition to oral cefdinir 300 mg twice daily, to continue for an additional 7 days
Appreciate ID help
# Possible biliary stent exchange on 01/[address] Petty as stent could be source of infection
He is doing better today, pain is better controlled with iV Dilaudid. Plan to switch to oxy upon dc . he had a meeting with pain doctor at oncology office for nerve block procedure.
Status post sweeping and sludge/debris's removal with exchange of stents. No complications reported. Patient is experiencing postprocedure epigastric discomfort. Seems Dilaudid 2 are better than oxycodone. Hold oxycodone for now continue with
low-dose Dilaudid for moderate pain, high-dose Dilaudid for severe pain. Continue with liquid diet and advance as tolerated. Liver function status seems to be normalized. Total bilirubin is normal.
Appreciate GI help.
# Chemotherapy induced pancytopenia HGB around 9
WBC 3.5
Plt 196
Transfuse PRN
# Hypokalemia. K is 3.2
Replace with IV KCl.
# Hyponatremia
# hypomagnesemia
recheck today
#NVD
He denies nausea this morning
All stool studies were negative at [facility]
Symptomatic treatment
Had diarrhea. Negative stool studies.
He takes Creon w- Zofran PRN
# Paroxysmal atrial fibrillation
On Eliquis as OP On was on hold for GI Procedure
Did Lovenox twice daily and held Lovenox dose evening of 12/31/2023, for GI procedure 01/01.
Restart AC today
Continue metoprolol
# Primary Hypertension-on metoprolol and valsartan as outpatient
#Hyperlipidemia on statin
# Diabetes-on metformin
Hold metformin
# Prostate disease-on dutasteride and Rapaflo as outpatient continue
# History of lung cancer status post lobectomy in 2020
# GERD/hiatal hernia-continue PPI
# History of Cr
# Arthritis/sciatica
# Sleep apnea-continue CPAP
# Diverticulosis
# DVT Prophylaxis- was on Lovenox
Total time spent to see the patient, examine the patient on the floor, review data and lab results, discuss treatment plan with patient, nursing staff around 55 minutes
Anticipated Discharge: Within 24 hours
Subjective/Interval History
-
Date of Service: January 03, 2024
He feels better with Dilaudid
Objective Data
-
Labs:
Laboratory Results
01/03/24
04:59
WBC 3.5 L
Hgb 9.1 L
Hct 26.3 L
Plt Count 196
Sodium 133 L
Potassium 3.2 L
Chloride 101
Carbon Dioxide 27
BUN 12
Creatinine 0.5 L
Glucose 141 H
Calcium 8.2 L
Total Bilirubin 0.8
AST 45
ALT 63 H
Alkaline Phosphatase 282 H
Vital Signs:
Vital Signs
Temp Pulse Resp BP Pulse Ox
97.7 F 62 18 115/66 98
01/03/24 07:00 01/03/24 07:00 01/03/24 07:00 01/03/24 07:00 01/03/24 07:00
I&O
01/02/24 01/03/24 01/04/24
06:59 06:59 06:59
Intake Total 2029
Balance 2029
[2024-01-03] MEDS: KCL 270 MEQ IV (10:14)
[2024-01-03] MEDS: FLUSH (NSS) 2 FLUSH IV ×2 (11:32→15:44)
[2024-01-03 11:34] LABS: Glucose - Point of Care 186 mg/dl (70-99)
--- NOTE | 2024-01-03 11:44 | W.PN.ID1 ---
Date of Service
Date of Service: January 03, 2024
Today's Communication
Changed to oral cefdinir. Discharge anticipated for tomorrow.
Assessment / Plan
Klebsiella bacteremia; suspect GI source
Pancreatic cancer; currently on chemotherapy
- stent in place.
A-fib
BPH
Diabetes
Recommendations:
Transition to oral cefdinir 300 mg twice daily, to continue for an additional 6 days.
Monitor white count and temperature curve.
Blood cultures have been repeated here; negative thus far
Results from [facility] reviewed on patient's phone and are noted below.
S/P biliary stent exchange.
����������������������������������������������������������
Chief Complaint
-: Clinical Sepsis and Bacteremia
Subjective / Review of Systems
Review of Systems: No Fever and No Chills
Vital Signs / Physical Exam
Vital Signs
Vital Signs
Temp Pulse Resp BP Pulse Ox
97.7 F 62 18 115/66 98
01/03/24 07:00 01/03/24 07:00 01/03/24 07:00 01/03/24 07:00 01/03/24 07:00
Physical Exam
Constitutional: No Acute Distress, Comfortable and Non-toxic
Eyes: No Conjunctival Hemorrhage and Sclera Anicteric
Pulmonary: Non Labored
Gastrointestinal: Non Distended
Neurological: Awake and Alert
Psychological: Calm
Objective Data
Lab Data
Lab Results
01/03/24 04:59
01/03/24 04:59
Estimated Creat Clear > 125 ml/min 01/03/24 04:59
Total Bilirubin 0.8 mg/dl (0.2-1.3) 01/03/24 04:59
AST 45 U/L (17-59) 01/03/24 04:59
ALT 63 U/L (0-50) H 01/03/24 04:59
Alkaline Phosphatase 282 U/L (38-126) H 01/03/24 04:59
Most recent labs reviewed.
Micro Results:
12/29/23 00:44 Blood Culture - Final
Blood/Venous No Growth - Final Report
12/28/23 23:29 Blood Culture - Final
Blood/Venous No Growth - Final Report
12/29/23 13:00 Salmonella/Shigella Culture - Final
Feces/Stool No Salmonella, Shigella, Aeromonas or Plesiomonas species
isolated.
Campylobacter Culture - Final
No Campylobacter species isolated.
Shiga Toxin Test - Final
No E. coli Shiga Toxin 1 or 2 detected.
12/29/23 13:00 C. difficile GDH Antigen & Toxins - Final
Feces/Stool Negative for toxigenic C.difficile
- Final
Negative for Norovirus GI and GII.
12/29/23 13:00 Cryptosporidium/Giardia - Final
Feces/Stool Negative for Cryptosporidium and/or Giardia Lamblia
antigens.
12/29/23 13:00 Stool Leukocytes - Final
Feces/Stool
12/27/2023 Blood Cultures
Performed at [place] in [facility]
Results viewed on patient's online portal
on 12/31/23 @ 13:00
1. Klebsiella oxytoca
M.I.C. RX
--------- ---
Amikacin <=16 S
Ampicillin/Sulbactam 8/4 S
Aztreonam <=4 S
Cefazolin 8 S
Cefepime <=2 S
Ceftazidime <=1 S
Ceftriaxone <=1 S
Ertapenem <=0.5 S
Ciprofloxacin <=0.25 S
Gentamicin <=4 S
Imipenam <=2 S
Levofloxacin <=0.5 S
Meropenem <=1 S
Piperacillin/Tazobactam <=8 S
Tobramycin <=2 S
Trimethoprim/Sulfamethoxazole <=0.5/9.5 S
Imaging:
12/29/2023 CT abdomen/pelvis with contrast: There is a grossly stable large pancreatic head neoplasm with associated local regional infiltration. Stable mild common bile duct stent and pneumobilia in keeping with patency. Redemonstration of upper
abdominal venous collaterals. Spleen, kidneys and adrenal glands are within normal limits. No free fluid or free air noted. Please see full dictation for additional detail.
[2024-01-03] MEDS: NOVOLOG FLEXPEN-LOW RESISTANCE 1 UNITS SC (11:55)
[2024-01-03] MEDS: OMNICEF 300 MG PO ×2 (11:55→19:24)
--- NOTE | 2024-01-03 14:01 | PN.CDI ---
CDI
- -
CDI:
Physician Documentation Request
Admit Date: 12/29/23 01:42
Dear Doctor Geena,
Patient admitted for positive blood cultures.
Laboratory Tests
01/01/24 01/02/24
04:39 04:40
WBC 2.5 L 2.1 L*
RBC 3.34 L 3.24 L
Hgb 9.5 L 9.2 L
Plt Count 179 175
The purpose of this query is not to question medical judgement, but to ensure the accuracy of the conditions reported for your patient.
There is either a lack of clinical support for this condition in the current medical record, or there is a lack of recognized standard criteria to support the condition.
The request is for one of the following:
- Additional documentation to support the condition. Indicate if this is in lieu of what may be considered standard criteria, and/or support why the standard criteria may not be present for this patient.
- A more appropriate diagnosis, reflecting the patient's condition (Leukopenia, anemia)
- Diagnosis pancytopenia remains a known or suspected condition for this patient and is further supported by (include additional documentation in the medical record)
- Other (please specify)
Use of terms such as suspected, likely, concern for, or probable (associated with a specific diagnosis that is being evaluated, monitored, or treated as if it exists) are acceptable and can be coded in the inpatient setting, when documented at the
time of discharge.
Thank you,
Kimberly Aragon RN, BSN
CDI Specialist
Available via [place] text
Please use your independent medical judgment in providing your response.
--- NOTE | 2024-01-03 14:06 | PN.CDI ---
Addendum entered and electronically signed by Fausto Seay MD 01/04/24 08:32:
Chemotherapy induced Leukopenia, anemia
Addendum entered and electronically signed by Fausto Seay MD 01/03/24 14:28:
I need to talk to you to understand the question
call me at [phone]
Thanks
Original Note:
CDI
- -
CDI:
Physician Documentation Request
Admit Date: 12/29/23 01:42
Dear Doctor Geena,
Patient admitted for positive blood cultures.
01/03 Hospitalist PN: 'Chemotherapy induced pancytopenia HGB around 9, WBC 3.5, Plt 196, Transfuse PRN'
Laboratory Tests
01/01/24 01/02/24
04:39 04:40
WBC 2.5 L 2.1 L*
RBC 3.34 L 3.24 L
Hgb 9.5 L 9.2 L
Plt Count 179 175
The purpose of this query is not to question medical judgement, but to ensure the accuracy of the conditions reported for your patient.
There is either a lack of clinical support for this condition in the current medical record, or there is a lack of recognized standard criteria to support the condition.
The request is for one of the following:
- Additional documentation to support the condition. Indicate if this is in lieu of what may be considered standard criteria, and/or support why the standard criteria may not be present for this patient.
- A more appropriate diagnosis, reflecting the patient's condition (Leukopenia, anemia)
- Diagnosis pancytopenia remains a known or suspected condition for this patient and is further supported by (include additional documentation in the medical record)
- Other (please specify)
Use of terms such as suspected, likely, concern for, or probable (associated with a specific diagnosis that is being evaluated, monitored, or treated as if it exists) are acceptable and can be coded in the inpatient setting, when documented at the
time of discharge.
Thank you,
Kimberly Aragon RN, BSN
CDI Specialist
Available via [place] text
Please use your independent medical judgment in providing your response.
[2024-01-03 15:00] VITALS: BP 117/68
[2024-01-03 17:13] LABS: Glucose - Point of Care 135 mg/dl (70-99)
[2024-01-03] MEDS: VITAMIN D3 (cholecalciferol) 125 MCG PO (17:35)
[2024-01-03] MEDS: PROSCAR 5 MG PO (17:35)
[2024-01-03] MEDS: ELIQUIS 5 MG PO (19:24)
[2024-01-03] MEDS: TOPROL XL 50 MG PO (21:10)
[2024-01-03] MEDS: FLOMAX 0.400000000000000022 MG PO (21:10)
[2024-01-03] MEDS: DIOVAN 80 MG PO (21:10)
[2024-01-03] MEDS: CRESTOR 20 MG PO (21:10)
[2024-01-03 21:28] LABS: Glucose - Point of Care 186 mg/dl (70-99)
[2024-01-03 23:13] VITALS: BP 129/70
[2024-01-04] MEDS: DILAUDID 0.5 MG IV ×2 (04:05→09:04)
[2024-01-04 07:00] VITALS: BP 141/74
[2024-01-04 07:52] LABS: Glucose - Point of Care 140 mg/dl (70-99)
--- NOTE | 2024-01-04 08:32 | W.DCSUMMARY ---
Discharge Summary
Discharge Data
Date of Admission: 12/29/23
Date of Discharge: 01/04/24
-
Pending Results: No
Hospital Course
68 years old male presented with nausea, vomiting and diarrhea. He started to feel ill and weak for a few days. He had blood culture done at his cancer center [facility] that tested positive for Klebsiella infection. Patient was admitted to
the hospital. He received intravenous antibiotic. He did not have hypotension. Patient was seen by infectious disease baby registry sales consultant. He had blood cultures and stool studies. He did not have positive cultures in the hospital. He was evaluated by
gastroenterology. Patient did not have bowel obstruction. Source of bacteremia was gastrointestinal origin. Patient was evaluated for exchange of biliary stent. He underwent procedure on 01/01/[address] Petty, no complications reported. His
abdominal pain was better controlled with Dilaudid. His pain started to subside and he was able to tolerate diet. He did not have fevers. He had chemotherapy-induced leukopenia and anemia but did not need transfusion. Patient remained
hemodynamically stable. Infectious diseases doctor recommended to continue course with oral antibiotic. Patient was discharged in a stable condition.
Physical Exam
General: Other (no acute distress, conversant)
HEENT: Moist mucous membranes and PERRLA
Respiratory: Clear; No Wheezes, Rales or Rhonchi
Cardiac: S1/S2 and Regular Rhythm; No Murmur
GI: Soft, Non Distended, mild epigastric tenderness on deep palpation ( usual for patient), Normal Bowel Sounds.
Musculoskeletal: No Clubbing, No Cyanosis and No Edema
Neuro: AO x 3, followed commands.
Psych: Calm; No agitation.
Total discharge time spent to see the patient, examine the patient on the floor, review data and lab results, discuss discharge plan with patient, nursing staff around 65 minutes
Discharge Plan
-
Patient Disposition: Home (Routine Discharge)
Discharge Diagnosis/Procedures: Bacteremia, finish course of oral antibiotic at home.
Hypokalemia, continue with oral potassium.
Hypomagnesemia, resolved.
Diet: As tolerated and Low Fat
Referrals:
Coby Kline MD [Family Provider] - in one to two weeks
Ha Petty MD [Active] - (02/[address] Petty at 730am please call [phone] if you cannot make this appt)
Prescriptions:
New
cefdinir 300 mg Capsule
300 mg PO Q12 Qty: 12 0RF
Continued
metoprolol succinate 50 mg Tablet Extended Release 24 Hr
50 mg PO HS
esomeprazole magnesium 40 mg Capsule,Delayed Release(Dr/Ec)
40 mg PO BID
azelastine 137 mcg (0.1 %) Aerosol,[place]
1 spray INTRANASAL DAILY
fluticasone propionate 50 mcg/actuation [place],Suspension
2 spray INTRANASAL DAILY
rosuvastatin 20 mg Tablet
20 mg PO HS
cholecalciferol (vitamin D3) [Vitamin D3] 125 mcg (5,000 unit) Tablet
125 mcg PO QPM
potassium citrate 99 mg Capsule
99 mg PO QPM
dutasteride 0.5 mg Capsule
0.5 mg PO QPM
Eliquis 5 mg tablet
5 mg PO BID
Patient Comments:
patient stopping eliquis on 10/27/23 and changing to asa
silodosin [Rapaflo] 8 mg Capsule
8 mg PO HS
acetaminophen [Tylenol] 325 mg capsule
650 mg PO QIDPRN PRN (Reason: mild pain)
sennosides [senna] 8.6 mg Tablet
17.2 mg PO BID
polyethylene glycol 3350 [HealthyLax] 17 gram powder in packet
17 g PO BID
oxycodone 5 mg capsule
5 mg PO Q4H PRN (Reason: Pain)
Patient Comments:
11/25/2023: last filled 11/18/23, 180 tabs for 30 from [id number]
valsartan 160 mg tablet
80 mg PO HS
Rx Instructions:
HOLD SYSTOLIC BLOOD PRESSURE <130 IF TAKING OXYCODONE
metformin 1,000 mg tablet extended release 24 hr
1,000 mg PO QPM
dicyclomine 10 mg Capsule
10 mg PO QID PRN (Reason: cramps)
ondansetron HCl 8 mg Tablet
8 mg PO Q4H
fentanyl 12 mcg/hr Patch 72 Hour
1 patch TRANSDERMAL Q72H
Rx Instructions:
patient states dose was to increase to 24 mcg/hr on 12/29
Discharge Orders:
Discharge Patient (As Directed); Ordered 01/04/24
Ordered By: Fausto Seay
[2024-01-04] MEDS: MIRALAX 17 GRAMS PO (09:01)
[2024-01-04] MEDS: NON-FORMULARY ITEM 1 SPRAY NASAL (09:01)
[2024-01-04] MEDS: OMNICEF 300 MG PO (09:01)
[2024-01-04] MEDS: ZENPEP DELAYED RELEASE CAPSULE 1 CAPSULE PO (09:01)
[2024-01-04] MEDS: ELIQUIS 5 MG PO (09:01)
[2024-01-04] MEDS: NOVOLOG FLEXPEN-LOW RESISTANCE SC (09:01)
[2024-01-04] MEDS: DURAGESIC 25 MCG/HR PATCH 1 PATCH TRANSDERM (09:02)
[2024-01-04] MEDS: PROTONIX 40 MG PO (09:02)
== END 2024-01-04 11:10 | disposition home or self-care (01) | DRG 919 ==
LOC: 3 WEST ACU 01:42
PROVIDERS: Hospitalist; Internal Medicine Gastroenterology; Nurse Practitioner; Nurse Practitioner Adult Health; ADMITTING PHYSICIAN Student in an Organized Health Care Education/Training Program; ATTENDING PHYSICIAN Internal Medicine; CONSULT PHYSICIAN Internal Medicine Gastroenterology; EMERGENCY PHYSICIAN Emergency Medicine; FAMILY PHYSICIAN Internal Medicine; OTHER PHYSICIAN Internal Medicine Infectious Disease
PROC: 0FCD8ZZ Extirpation of Matter from Pancreatic Duct, Via Natural or Artificial Opening Endoscopic (ICD-10-PCS; 2024-01-01)
PROC: 0FC98ZZ Extirpation of Matter from Common Bile Duct, Via Natural or Artificial Opening Endoscopic (ICD-10-PCS; 2024-01-01)
PROC: 0F798DZ Dilation of Common Bile Duct with Intraluminal Device, Via Natural or Artificial Opening Endoscopic (ICD-10-PCS; 2024-01-01)
PROC: 0FPB8DZ Removal of Intraluminal Device from Hepatobiliary Duct, Via Natural or Artificial Opening Endoscopic (ICD-10-PCS; 2024-01-01)
PROC: 0F758DZ Dilation of Right Hepatic Duct with Intraluminal Device, Via Natural or Artificial Opening Endoscopic (ICD-10-PCS; 2024-01-01)
DX: T85.79XA Infection and inflammatory reaction due to other internal prosthetic devices, implants and grafts, initial encounter (principal); D61.810 Antineoplastic chemotherapy induced pancytopenia; K80.30 Calculus of bile duct with cholangitis, unspecified, without obstruction; E87.1 Hypo-osmolality and hyponatremia; R78.81 Bacteremia; C25.9 Malignant neoplasm of pancreas, unspecified; F11.20 Opioid dependence, uncomplicated; Z85.07 Personal history of malignant neoplasm of pancreas; B96.89 Other specified bacterial agents as the cause of diseases classified elsewhere; E11.36 Type 2 diabetes mellitus with diabetic cataract; G89.3 Neoplasm related pain (acute) (chronic); I48.0 Paroxysmal atrial fibrillation; Z79.01 Long term (current) use of anticoagulants; I10 Essential (primary) hypertension; Z66 Do not resuscitate; E87.6 Hypokalemia; Z96.89 Presence of other specified functional implants; Z46.59 Encounter for fitting and adjustment of other gastrointestinal appliance and device; E78.00 Pure hypercholesterolemia, unspecified; K21.9 Gastro-esophageal reflux disease without esophagitis; E83.42 Hypomagnesemia; Y84.8 Other medical procedures as the cause of abnormal reaction of the patient, or of later complication, without mention of misadventure at the time of the procedure
CPT/HCPCS: 74177; 74330; 76000; 80053; 80076; 81003; 81015; 82248; 82962; 83036; 83735; 85025; 85027; 87040; 87045; 87046; 87077; 87324; 87328; 87329; 87427; 87449; 87798; 89055; 96361; 96374; 96375; 99285; C1769; C1876; C2617; Q9967

== ENCOUNTER 2024-03-29 20:54 | Inpatient (IN) | payer MEDICARE, SELFPAY ==
[2024-03-29 17:29] VITALS: BP 124/79
--- NOTE | 2024-03-29 17:59 | ED.GENMED ---
History of Present Illness
General
Chief Complaint: Musculo-Skeletal Complaint
Source: patient
Exam Limitations: none
Time Seen by Provider: 03/29/24 17:35
Travel History
Have you had any contact with someone who has COVID-19?: No
Do you have any symptoms of coronavirus? Fever > 100 degrees, chills, cough, shortness of breath, sore throat, loss of taste or smell, muscle aches, or headache?: No
History of Present Illness
History of Present Illness:
See MDM
Past History
Past History
ED Past Medical History: Arrthythmia, Cancer, HTN, Hypercholesterolemia and IDDM
ED Past Surgical History: Orthopedic and Other (Lobectomy bile duct stents cataracts)
Social History
Tobacco: Non-smoker
Personal:
Phy Exam
Physical Exam
Physical Exam:
See MDM
Course
Orders/Labs/Results
Orders:
Orders
03/29/24 17:54
Consult Orthopedic [ORTHOPEDIC CONSULT] Urgent
Consulting Provider: Harinder Conde
Was physician already notified: Yes
HYDROmorphone [Dilaudid] 1 mg IV NOW STA
03/29/24 18:05
CRP [C-Reactive Protein] Urgent
Complete Blood Count/With Diff Urgent
Comprehensive Metabolic Panel Urgent
ESR [Erythrocyte Sed Rate] Urgent
Magnesium Urgent
Comment: ADDON
Manual Differential Urgent
03/29/24 18:19
Consult Interventional Radiology [IRAD CONSULT] Urgent
Consulting Provider: Juan Jung
Was physician already notified: Yes
Reason for Consult/Procedure: left knee arthrocentesis
Acknowledgement that appropriate orders are entered: Yes
Body Fluid Cell Count Urgent
What is the Body Fluid: joint
Date Specimen was Collected: 03/29/24
Time Specimen was Collected: 20:19
Comment: with DIFF
Body Fluid Crystals Urgent
What is the Body Fluid: joint
Date Specimen was Collected: 03/29/24
Time Specimen was Collected: 20:19
03/29/24 18:24
Blood Culture Q30M
DONALD Source: Blood/Venous
Specimen Description:
Blood Culture Q30M
DONALD Source: Blood/Venous
Specimen Description:
03/29/24 18:26
Lyme Progressive Urgent
03/29/24 18:44
Add On- LAB Urgent
Tests Added?: Magnesium
03/29/24 19:07
Potassium Chloride [KCl] 40 meq 0.9% Sodium Chloride 250 ml [Nss] 250 ml IV NOW
03/29/24 19:11
Acetaminophen [Tylenol] 1,000 mg PO NOW STA
Magnesium Sulfate 4 Gram/100Ml [Magnesium Sulfate] 4 gram in 100 ml IV NOW
03/29/24 19:12
Magnesium Sulfate 4 Gram/100Ml [Magnesium Sulfate] 4 gram in 100 ml IV NOW
03/29/24 19:15
Calcium Gluconate 2 gram/100mL [Calcium Gluconate] 2 gram in 100 ml IV ONCE
03/29/24 19:45
Fluid Culture with Gram Stain Routine
DONALD Source: Fluid
Specimen Description:
Date Specimen was Collected: 03/29/24
Time Specimen was Collected: 19:43
Comment: left knee aspiration
03/29/24 19:54
CefTRIAXone [Rocephin] 2,000 mg IV NOW STA
03/29/24 19:58
Sterile Water [Sterile Water For Injection] 20 ml .ROUTE .STK-MED
03/29/24 19:59
Vancomycin [Vancocin] 2,000 mg 0.9% Sodium Chloride 500 ml [Nss] 500 ml IV NOW
Abnormal Lab Results
03/29/24
18:05
WBC 4.3 L 10^3/uL
(4.8-10.8)
RBC 2.67 L 10^6/uL
(4.70-6.10)
Hgb 7.9 L g/dL
(13.0-18.0)
Hct 22.9 L %
(39.0-52.0)
RDW 17.4 H %
(11.5-14.5)
Absolute Monos (auto) 1.1 H 10^3/uL
(0.1-0.6)
Neutrophils % 39.3 L %
(42.2-75.2)
Monocytes % 25.1 H %
(1.7-9.3)
Segmented Neutrophils 40 L %
(42-75)
Monocytes (Manual) 21 H %
(2-9)
ESR 121 H mm/hour
(0-20)
Potassium 2.7 L* mmol/L
(3.5-5.1)
Creatinine 0.5 L mg/dL
(0.7-1.3)
Glucose 131 H mg/dl
(70-99)
Calcium 6.9 L* mg/dl
(8.4-10.2)
Magnesium 1.0 L mg/dl
(1.6-2.3)
C-Reactive Protein 49.00 H mg/L
(0.0-10.00)
Total Protein 6.0 L g/dl
(6.3-8.2)
Albumin 3.4 L g/dl
(3.5-5.0)
03/29/24 18:05
03/29/24 18:05
Vital Signs
Initial and Last Documented VS:
Initial Vital Signs
Temp Pulse Resp BP Pulse Ox
100.3 F 77 18 124/79 98
03/29/24 17:29 03/29/24 17:29 03/29/24 17:29 03/29/24 17:29 03/29/24 17:29
Last Documented Vital Signs
Temp Pulse Resp BP Pulse Ox
99.1 F 75 18 144/69 97
03/29/24 19:25 03/29/24 19:50 03/29/24 19:50 03/29/24 19:50 03/29/24 19:25
MDM/Problems Addressed
Differential Diagnosis Includes:
HPI and MDM Narrative:
68-year-old male presenting with worsening left knee swelling and pain. Patient had a fall over a week ago and has since been evaluated by orthopedics. Patient had an x-ray showing no fracture. He had outpatient blood work. Patient was sent to
the emergency department for worsening knee effusion, pain and low-grade fevers. Patient is currently on chemotherapy for nonoperative pancreatic cancer.
Ortho PA at bedside and requesting IR eval for US guided arthrocentesis. Ortho not 100% convinced of knee effusion and do not want to blindly introduced needle into joint space on in immunocompromised patient until the diagnosis of effusion can be
made first
Physical exam
General: Well appearing and non-toxic
HEENT: protecting airway
Neck: appears supple
CV: No evidence of cyanosis
Resp: No accessory muscle use
Abd: Non-distended
Extremities: Tenderness, swelling and warmth to left knee. No overt cellulitic changes. Distal extremity neurovascular intact
Neuro: alert
Psych: Normal affect
Skin: Intact
Problems Addressed including Acute and Chronic Conditions affecting care:
1. Possible septic arthritis
Acuity: acute
Prognosis: stable
Details: Orthopedics at bedside. Will discuss case with IR for possible ultrasound-guided arthrocentesis, per ortho request
2. Hypokalemia
Acuity: acute
Prognosis: unstable
Details: Will start IV 40 meq of KCl rider
3. Hypocalcemia
Acuity: acute
Prognosis: unstable
Details: Will give IV calcium
4. Hypomagnesemia
Acuity: acute
Prognosis: unstable
Details: Will give IV Mg
Updates
7:55 PM patient returns from IR. Successful arthrocentesis. Will start vancomycin and Rocephin
Differential Diagnosis (but not limited to): Septic arthritis, hemarthrosis
Testing considered: CT knee
Drug therapy (if applicable): OTC meds, please see d/c instruction regarding Rx drugs
Amount and/or Complexity of Data Reviewed
Clinical info obtained from: Patient
External data reviewed: N/A
Labs I independently reviewed (but not limited to): Hypokalemia, hypocalcemia, hypomagnesemia
Radiology: N/A
Pulse Ox: not hypoxic
EKG independently reviewed: N/A
Rn Staff: N/A
Critical Care: N/A
Risk of Complication:
Social Determinants of health: Good social support
Discussed with other providers: Orthopedics, hospitalist
Escalation of Care includes Admit/Obs: Given the concern for possible septic arthritis, will start antibiotics and admit. Patient requiring repletion of electrolytes
Occasional wrong word or 'sound a like' substitutions may have occurred due to the inherent limitations of voice recognition software. Read the chart carefully and recognize, using context, where substitutions have occurred.
*Critical Care Note
Total Time (30-74mins, 75-104mins- exclusive of procedures): Not Applicable
ED Attending Note
-
Portions of this chart may have been created with voice recognition software.� Occasional wrong word or��sound alike� substitutions may have occurred due to the inherent limitations of voice recognition software.
Discharge Plan
Departure
Patient Disposition: Admit
Date of Disposition: 03/29/24
Time of Disposition: 20:26
Admit to: Med/Surg
Presentation/result/management discussed w/ accepting MD/DO: Hospitalist
Discharge Problem:
Septic arthritis, Hypokalemia, Hypomagnesemia, Hypocalcemia
Prescriptions:
No Action
metoprolol succinate 50 mg Tablet Extended Release 24 Hr
50 mg PO QPM
esomeprazole magnesium 40 mg Capsule,Delayed Release(Dr/Ec)
40 mg PO HS
azelastine 137 mcg (0.1 %) Aerosol,Watkins
1 spray INTRANASAL DAILY
rosuvastatin 20 mg Tablet
20 mg PO QPM
cholecalciferol (vitamin D3) [Vitamin D3] 125 mcg (5,000 unit) Tablet
125 mcg PO QPM
dutasteride 0.5 mg Capsule
0.5 mg PO HS
Eliquis 5 mg tablet
5 mg PO BID
silodosin [Rapaflo] 8 mg Capsule
8 mg PO HS
acetaminophen [Tylenol] 325 mg capsule
650 mg PO QIDPRN PRN (Reason: mild pain)
metformin 1,000 mg tablet extended release 24 hr
1,000 mg PO DAILY
valsartan 80 mg tablet
80 mg PO HS
prochlorperazine maleate 10 mg tablet
10 mg PO HS
hydromorphone 2 mg tablet
4 mg PO Q4H PRN (Reason: severe pain)
Patient Comments:
03/29/2024: last filled 02/19/24, 84 tabs for 14 days from [facility]
potassium chloride [Klor-Con M20] 20 mEq Tablet,Er Particles/Crystals
20 meq PO BID
pantoprazole 40 mg tablet,delayed release (DR/EC)
40 mg PO HS
fentanyl 25 mcg/hr patch 72 hour
1 patch transdermal Q72H
Patient Comments:
03/29/2024: last filled 03/11/24, 10 patches for 30 days from [id number]
metoclopramide HCl 10 mg tablet
10 mg PO TID
pregabalin 25 mg capsule
50 mg PO DAILY
Patient Comments:
03/29/2024: last filled 02/29/24, 19 tabs for 19 days from [id number]
pregabalin 25 mg capsule
75 mg PO HS
Patient Comments:
03/29/2024: last filled 02/29/24, 19 tabs for 19 days from [id number]
Creon 36,000-114,000- 180,000 unit capsule,delayed release(DR/EC)
2 cap PO MEALS
Referrals:
Coby Kline MD [Family Provider] -
Interventions
Interventions:
*Risk Screen - Suicide Last Done: 03/29/24 18:37
*General Assessment Last Done: 03/29/24 18:37
*Neglect/Abuse Screening Last Done: 03/29/24 18:37
ED- Fall Risk Assessment Last Done: 03/29/24 18:37
*ED COVID-19 Vaccine History Last Done: 03/29/24 17:29
ED-Musculoskeletal Assessment Last Done: 03/29/24 18:37
Discharge Date and Time
Print Language: MALTESE
[2024-03-29] MEDS: DILAUDID 1 MG IV (18:08)
[2024-03-29 18:13] LABS: % Basophils 0.2 % (0-2); % Eosinophils 0.2 % (0-6); % Immature Granulocytes 0.5 % (0-0.5); % Lymphocytes 34.7 % (20.5-51.1); % Monocytes 25.1 % (1.7-9.3); % Neutrophils 39.3 % (42.2-75.2); Absolute Lymphocytes 1.5 10^3/uL (1.2-3.4); Absolute Monocytes 1.1 10^3/uL (0.1-0.6); Absolute Neutrophils 1.7 10^3/uL (1.4-6.5); Hematocrit 22.9 % (39.0-52.0); Hemoglobin 7.9 g/dL (13.0-18.0); Mean Corp Hgb Conc. 34.5 g/dL (33.0-37.0); Mean Corpuscular Hgb 29.6 pg (27.0-31.0); Mean Corpuscular Volume 85.8 fL (80.0-94.0); Mean Platelet Volume 8.8 fL (7.4-10.4); Nucleated Red Blood Cells % 0 % (-); Platelet Count 205 10^3/uL (130-400); Red Blood Cell Count 2.67 10^6/uL (4.70-6.10); Red Cell Dist. Width 17.4 % (11.5-14.5); White Blood Cell Count 4.3 10^3/uL (4.8-10.8)
[2024-03-29 18:34] LABS: ALT (SGPT) 17 U/L (0-50); AST (SGOT) 21 U/L (17-59); Albumin 3.4 g/dl (3.5-5.0); Alkaline Phosphatase 111 U/L (38-126); Blood Urea Nitrogen 11 mg/dl (9-20); Calcium 6.9 mg/dl (8.4-10.2); Carbon Dioxide 27 mmol/L (22-30); Chloride 100 mmol/L (98-107); Glucose 131 mg/dl (70-99); Potassium 2.7 mmol/L (3.5-5.1); Sodium 136 mmol/L (135-145); Total Bilirubin 1.1 mg/dl (0.2-1.3); eGFR > 60.00
--- NOTE | 2024-03-29 18:55 | CON.ORTHO ---
Consultation
-
Date/Time Consultation Requested: 03/29/2024 @ 17:54
Date/Time Consultation Performed: 03/29/2024 @ 18:00
Requesting Provider: Chris Arteaga DO
Performing Provider: Bandar Dickerson PA-C for Dr. Harinder Conde
Reason for Consultation: Left Knee Pain and Swelling
Consultation - Orthopedics
History
HPI: The patient is a 68-year-old male presenting to [facility] Emergency Department with left knee pain, swelling, and moderate-grade fevers (Tmax reported 101.9). The patient sustained a mechanical fall about 2 weeks ago. He reports that
he was gardening and unfortunately tripped on a hose and fell onto the lateral hip and knee. Initially after his fall, he reports experiencing left hip pain, which has since completely resolved. He underwent left total hip arthroplasty on 08/07/[address] Kenyon. He did have outpatient x-rays performed of the left hip and knee which were negative for obvious hardware complication, displaced fracture or dislocation. 3 days ago, patient reports that he woke up with increased left knee pain
and swelling, which was not initially present after his fall. He denies any knee pain prior to this most recent injury. He reports that he is unable to actively extend his knee and has difficulty bending his knee secondary to pain. He reports
increased pain with weightbearing activities. He was seen as an outpatient yesterday and was placed into a knee immobilizer. He was also prescribed an MRI of the left knee and script to obtain baseline inflammatory labs due to clinical exam. CBC
revealed a WBC WNL, ESR 37 and CRP 6. Of significance, the patiently is currently being treated for non-operable pancreatic cancer. He recently finished 8 sessions of chemotherapy and next Monday is scheduled to begin radiation with pill form
chemotherapy. He was also recently admitted to [facility] this past December after he had a blood culture done at his cancer [facility] that tested positive for Klebsiella infection. He did not have any positive blood cultures
while admitted at the hospital. During admission, he was on intravenous antibiotics and discharged on PO antibiotics. The patient is also on Eliquis 5 mg twice daily for atrial fibrillation, last dose this morning. He also has a past medical
history significant for Type II Diabetes. Orthopedic surgery was consulted regarding further management of this patient.
Allergies / Home Medications
Allergy/AdvReac Type Severity Reaction Status Date / Time
latex Allergy Hives Verified 03/29/24 17:31
Sulfa (Sulfonamide Allergy Fever, Verified 03/29/24 17:31
Antibiotics) Hives
�Medication �Instructions �Recorded
azelastine 137 mcg (0.1 %) nasal 1 spray intranasal DAILY Congestion 07/13/23
spray aerosol
cholecalciferol (vitamin D3) 125 125 mcg PO QPM Supplement 07/13/23
mcg (5,000 unit) tablet (Vitamin
D3)
esomeprazole magnesium 40 mg 40 mg PO BID Gastrointestinal Issue 07/13/23
capsule,delayed release
fluticasone propionate 50 2 spray intranasal DAILY 07/13/23
mcg/actuation nasal INFLAMMATION
spray,suspension
metoprolol succinate 50 mg 50 mg PO HS Blood Pressure 07/13/23
tablet,extended release 24 hr
potassium citrate 99 mg capsule 99 mg PO QPM Supplement 07/13/23
rosuvastatin 20 mg tablet 20 mg PO HS High Cholesterol 07/13/23
dutasteride 0.5 mg capsule 0.5 mg PO QPM Urinary Issue 10/31/23
acetaminophen 325 mg capsule 650 mg PO QIDPRN PRN mild pain 11/03/23
(Tylenol)
apixaban 5 mg tablet (Eliquis) 5 mg PO BID Blood Clot 11/03/23
Prevention/Tx
silodosin 8 mg capsule (Rapaflo) 8 mg PO HS Urinary Issue 11/03/23
metformin 1,000 mg tablet,extended 1,000 mg PO QPM Diabetes 11/25/23
release 24hr (osmotic)
oxycodone 5 mg capsule 5 mg PO Q4H PRN Pain 11/25/23
polyethylene glycol 3350 17 gram 17 g PO BID Constipation 11/25/23
oral powder packet (HealthyLax)
sennosides 8.6 mg tablet (senna) 17.2 mg PO BID Constipation 11/25/23
valsartan 160 mg tablet 80 mg PO HS Blood Pressure 11/25/23
dicyclomine 10 mg capsule 10 mg PO QID PRN cramps 12/29/23
fentanyl 12 mcg/hr transdermal 1 patch transdermal Q72H chronic 12/29/23
patch pain
ondansetron HCl 8 mg tablet 8 mg PO Q4H nausea 12/29/23
cefdinir 300 mg capsule 300 mg PO Q12 #12 caps 01/04/24
Vital Signs / Lab Results
o
Temp Pulse Resp BP Pulse Ox
100.3 F 77 18 124/79 98
03/29/24 17:29 03/29/24 17:29 03/29/24 17:29 03/29/24 17:29 03/29/24 17:29
03/29/24 18:05
03/29/24 18:05
Radiographic Findings:
Plain radiographs of the left hip, including AP pelvis view, AP and frog views of the left hip was obtained as an outpatient on 03/28/2024 and was personally interpreted by myself. I note a well-fixed left total hip replacement without any obvious
evidence for hardware complication, displaced fracture or dislocation. X-rays of the left hip reviewed in comparison to initial post-operative films obtained at [facility] from 08/07/2023, without obvious change.������
Plain radiographs of the left knee, including bilateral AP and left lateral view was also obtained as an outpatient on 03/28/2024 and was personally interpreted by myself. With respect to the left knee, I note evidence of mild-moderate medial
compartment OA by virtue of joint space narrowing. I do not appreciate any displaced fractures or dislocations.
Physical Exam:
General: Well-developed, well-nourished male in no apparent distress. Awake, alert, and oriented x 3.
HEENT: NCAT, sclera anicteric, normal conversational hearing.
Heart: No JVD.
Lungs: Normal work of breathing on room air.
MSK:Physical examination of the left knee reveals a healing abrasion over the anterior knee. There is generalized edema of the left knee in comparison to the contralateral side (primarily localized within the region of the suprapatellar pouch).
There is warmth noted with an erythematous hue. No ecchymosis. Diffuse tenderness to palpation. ROM significantly restricted actively and passively secondary to pain. Patient unable to actively extend knee or perform SLR. Further ligamentous
examination unable to be performed secondary to pain. Calf is soft and nontender. Able to plantarflex and dorsiflex LLE. NVI distally. Ambulates with cane and knee immobilizer.
Assessment / Plan
Assessment: Left knee pain, swelling, with moderate-grade fevers (Tmax reported as 101.9). Patient is currently on chemotherapy for non-operable pancreatic cancer.
Plan:
- IR consulted for US guided aspiration of left knee. Fluid to be sent for cell count, gram stain, crystals, culture & sensitivity.
- Maintain knee immobilizer at this time.
- Pain control per primary team. Ice and elevation to help with swelling.
- Orthopedic surgery will continue to follow along.
--- NOTE | 2024-03-29 19:06 | EDRN ---
Called pharmacy for calcium gluconate and KCL infusions
[2024-03-29 19:08] VITALS: BP 137/69
[2024-03-29 19:08] LABS: Absolute Neutrophils -Man Diff 1.7 10^3/uL (1.4-6.5); Band Neutrophils 0 % (0-3); Lymphocytes 39 % (20-51); Monocytes 21 % (2-9); Normal RBC Morphology Yes; Pathologist Reviewed No; Platelets Checked Yes; Segmented Neutrophils 40 % (42-75); Total Cells Counted 100
[2024-03-29 19:19] LABS: Erythrocyte Sed Rate 121 mm/hour (0-20)
[2024-03-29 19:25] VITALS: BP 147/73; BP_SYST 78
--- NOTE | 2024-03-29 19:45 | W.PN.IRAD.PR ---
Procedure Note
-
Left knee aspiration performed under US guidance with 22g needle. Return 25cc thin yellow fluid, not grossly purulent. Sent for analysis as requested.
[2024-03-29 19:50] VITALS: BP 144/69
--- NOTE | 2024-03-29 19:59 | EDRN ---
Called pharmacy for vancomycin 2g iv
[2024-03-29] MEDS: ROCEPHIN 2000 MG IV (20:07)
[2024-03-29] MEDS: KCL 270 MEQ IV (20:23)
[2024-03-29] MEDS: TYLENOL 1000 MG PO (20:24)
[2024-03-29] MEDS: VANCOCIN 540 MG IV (20:35)
[2024-03-29 20:38] VITALS: BP 136/98
--- NOTE | 2024-03-29 20:40 | EDRN ---
Per Dr Arteaga, pt to receive IV vancomycin first (2 hours), KCL (4 hours), Mg (4 hours) and calcium iv (1 hour) in that order. After discussion with pt, he was agreeable to having a peripheral IV site inserted to facilitate infusions. Pt requested
IV site be covered so he cannot see it - wrapped loosely with 3 inch gauze.
--- NOTE | 2024-03-29 20:52 | HPS.HSE ---
Family Physician
-
Family Physician: Coby Kline
Chief Complaint
-
left knee pain
History of Present Illness
68-year-old male past medical history of metastatic pancreatic cancer with history of biliary stenting on chemotherapy last received 2 weeks ago, Klebsiella bacteremia, pancytopenia, paroxysmal atrial fibrillation on Eliquis, hypertension,
hyperlipidemia, diabetes, BPH, lung cancer status post lobectomy 2020, GERD/hiatal hernia, GUZMÁN, arthritis/sciatica, sleep apnea on CPAP, diverticulosis, presenting with left knee pain, swelling and inability to bear weight for the past 4 days.
2-1/2 weeks ago he was out in the garden when he tripped on a hose and banged his left hip and left knee with some minor bruising at that time. Over the past few days he developed pain, swelling and inability to bear weight. He did not have a
fever over the past day.
He denies smoking or alcohol use.
Medical History
Past Medical History
Past Medical History: Reports Other (metastatic pancreatic cancer with history of biliary stenting on chemotherapy last received 2 weeks ago, Klebsiella bacteremia, pancytopenia, paroxysmal atrial fibrillation on Eliquis, hypertension,
hyperlipidemia, diabetes, BPH, lung cancer status post lobectomy 2020, GERD/hiatal hernia, GUZMÁN, arth)
Past Surgical History: Reports None
Social History
Tobacco: Non-smoker
Alcohol: None
Drug: None
Family History
Family History: Not pertinent
Allergies / Home Medications
Allergies reflects when Allergies were last updated in [employer].
Home Medications with original date entered in [employer]
Allergy/Medication List:
Allergies
Allergy/AdvReac Type Severity Reaction Status Date / Time
latex Allergy Hives Verified 03/29/24 17:31
Sulfa (Sulfonamide Allergy Fever, Verified 03/29/24 17:31
Antibiotics) Hives
Home Medications
azelastine 137 mcg (0.1 %) nasal spray aerosol 1 spray intranasal DAILY Congestion 07/13/23
cholecalciferol (vitamin D3) 125 mcg (5,000 unit) tablet (Vitamin D3) 125 mcg PO QPM Supplement 07/13/23
esomeprazole magnesium 40 mg capsule,delayed release 40 mg PO HS Gastrointestinal Issue 07/13/23
metoprolol succinate 50 mg tablet,extended release 24 hr 50 mg PO QPM Blood Pressure 07/13/23
rosuvastatin 20 mg tablet 20 mg PO QPM High Cholesterol 07/13/23
dutasteride 0.5 mg capsule 0.5 mg PO HS Urinary Issue 10/31/23
acetaminophen 325 mg capsule (Tylenol) 650 mg PO QIDPRN PRN mild pain 11/03/23
apixaban 5 mg tablet (Eliquis) 5 mg PO BID Blood Clot Prevention/Tx 11/03/23
silodosin 8 mg capsule (Rapaflo) 8 mg PO HS Urinary Issue 11/03/23
metformin 1,000 mg tablet,extended release 24hr (osmotic) 1,000 mg PO DAILY Diabetes 11/25/23
fentanyl 25 mcg/hr transdermal patch 1 patch transdermal Q72H 03/29/24
hydromorphone 2 mg tablet 4 mg PO Q4H PRN severe pain 03/29/24
[id number]-rtaexfq 36,000-114,000-180,000 unit capsule,delay rel (Creon) 2 cap PO MEALS 03/29/24
metoclopramide HCl 10 mg tablet 10 mg PO TID 03/29/24
pantoprazole 40 mg tablet,delayed release 40 mg PO HS 03/29/24
potassium chloride 20 mEq tablet,extended release(part/cryst) (Klor-Con M) 20 meq PO BID 03/29/24
pregabalin 25 mg capsule 50 mg PO DAILY 03/29/24
pregabalin 25 mg capsule 75 mg PO HS 03/29/24
prochlorperazine maleate 10 mg tablet 10 mg PO HS 03/29/24
valsartan 80 mg tablet 80 mg PO HS 03/29/24
Review of Systems
-
History Source: Patient
A 12 point ROS was completed and negative except as noted: Yes
Constitutional: Reports No Symptoms
EENT: Reports No Symptoms
Respiratory: Reports No Symptoms
Cardiac: Reports No Symptoms
Abdomen/GI: Reports No Symptoms
: Reports No Symptoms
Musculoskeletal: Reports See HPI
Skin: Reports No Symptoms
Neurological: Reports No Symptoms
Endocrine: Reports No Symptoms
Hematologic/Lymphatic: Reports No Symptoms
Psych: Reports No Symptoms
Physical Exam
Vital Signs
Vital Signs
Temp Pulse Resp BP Pulse Ox
99.1 F 70 16 136/98 98
03/29/24 19:25 03/29/24 20:38 03/29/24 20:38 03/29/24 20:38 03/29/24 20:38
Physical Exam
General: Well Developed, Well Nourished and No Apparent Distress
HEENT: NormoCephalic, Moist mucous membranes and Atraumatic
Respiratory: Clear
Cardiac: S1/S2 and Regular Rhythm; No Murmur or Rub
GI: Soft, Non Tender, Non Distended and Normal Bowel Sounds; No Organomegaly
Rectal: Deferred by Provider
Musculoskeletal: No Clubbing, No Cyanosis, No Edema and Other (left knee swelling, eythema and tenderness )
Skin: No Rash
Neuro: Nonfocal/grossly intact
Laboratory Results
-
03/29/24 18:05
03/29/24 18:05
Laboratory Results
Total Bilirubin 1.1 mg/dl (0.2-1.3) 03/29/24 18:05
AST 21 U/L (17-59) 03/29/24 18:05
ALT 17 U/L (0-50) 03/29/24 18:05
Alkaline Phosphatase 111 U/L (38-126) 03/29/24 18:05
Data Reviewed
-
Lab Data: Labs Reviewed by me
Old Records: Reviewed
Impression/Plan
-
IMPRESSION:
PLAN:
#Possible septic arthritis of left knee
-Left knee aspiration performed by IR return 25 cc of thin yellow fluid not grossly purulent sent for analysis
-Fluid culture pending
-Check blood culture
-Vancomycin, ceftriaxone
-Orthopedics following
-IV Dilaudid for pain
# Hypokalemia secondary to hypomagnesemia, possibly related to chemotherapy
-Potassium repletion
# Hypocalcemia secondary to hypomagnesemia
-Calcium repletion
Metastatic pancreatic cancer with history of biliary stenting on chemotherapy
-Continue nausea medications
History of Klebsiella bacteremia
Pancytopenia secondary to chemotherapy
Normocytic anemia
-Hemoglobin 7.9 from 9.1
-Continue to monitor
Paroxysmal atrial fibrillation
-Hold Eliquis
-Continue metoprolol
Essential hypertension
-Continue valsartan
Hyperlipidemia
-Continue statin
Type 2 diabetes
-Continue metformin
BPH
-Continue dutasteride, Rapaflo
Lung cancer status post lobectomy 2020
GERD/hiatal hernia
-Continues omeprazole
GUZMÁN
Arthritis/sciatica
-Continue fentanyl patch
-Continue pregabalin
Sleep apnea on CPAP
Diverticulosis
DNR/DNI
DVT prophylaxis�heparin
Regular diet
[2024-03-29 21:23] LABS: Body Fluid Mononuclear 26.8 %; Body Fluid Polymorphonuclear 73.2 %; Body Fluid WBC 6550 /CUMM
[2024-03-29 21:48] LABS: Body Fluid Second Tech JK
[2024-03-29 22:21] LABS: Glucose - Point of Care 160 mg/dl (70-99)
[2024-03-29 22:34] VITALS: BMI 24.1
[2024-03-29] MEDS: MAGNESIUM SULFATE 100 IV (22:45)
[2024-03-29 22:53] VITALS: BMI 24.1
[2024-03-29] MEDS: COMPAZINE 10 MG PO (22:58)
[2024-03-29] MEDS: REGLAN 10 MG PO (22:58)
[2024-03-29 23:00] VITALS: BP 152/79
--- NOTE | 2024-03-29 23:00 | PTCARENOTE ---
Pt was received from ED at 2300. Pt is AAOx3, ambulated to the unit bed with a cane and supervision. +1 edema on left knee, mildly red laterally, knee immobilizer maintained. Oriented to the room and the care plan.
[2024-03-29] MEDS: PROSCAR 5 MG PO (23:02)
[2024-03-29] MEDS: PROTONIX 40 MG PO (23:02)
[2024-03-29] MEDS: DIOVAN 80 MG PO (23:02)
[2024-03-29] MEDS: LYRICA 75 MG PO (23:02)
[2024-03-29] MEDS: FLOMAX 0.400000000000000022 MG PO (23:02)
[2024-03-29] MEDS: DURAGESIC 25 MCG/HR PATCH 1 PATCH TRANSDERM (23:29)
[2024-03-30] MEDS: FLUSH (NSS) 1 FLUSH IV (00:26)
[2024-03-30] MEDS: CALCIUM GLUCONATE 100 IV (00:27)
[2024-03-30 07:09] LABS: Hematocrit 24.7 % (39.0-52.0); Mean Corp Hgb Conc. 32.4 g/dL (33.0-37.0); Mean Corpuscular Volume 89.5 fL (80.0-94.0); Mean Platelet Volume 9.5 fL (7.4-10.4); Nucleated Red Blood Cells % 0 % (-); Platelet Count 220 10^3/uL (130-400); Red Blood Cell Count 2.76 10^6/uL (4.70-6.10); Red Cell Dist. Width 17.2 % (11.5-14.5); White Blood Cell Count 3.9 10^3/uL (4.8-10.8)
[2024-03-30 07:15] LABS: Glucose - Point of Care 138 mg/dl (70-99)
[2024-03-30 07:25] VITALS: BP 125/65
[2024-03-30 07:30] LABS: ALT (SGPT) 16 U/L (0-50); AST (SGOT) 19 U/L (17-59); Albumin 3.2 g/dl (3.5-5.0); Alkaline Phosphatase 116 U/L (38-126); Blood Urea Nitrogen 9 mg/dl (9-20); Calcium 7.5 mg/dl (8.4-10.2); Carbon Dioxide 26 mmol/L (22-30); Chloride 104 mmol/L (98-107); Estimated Creatinine Clearance > 125 ml/min; Glucose 112 mg/dl (70-99); Potassium 2.8 mmol/L (3.5-5.1); Sodium 138 mmol/L (135-145); eGFR > 60.00
--- NOTE | 2024-03-30 08:58 | PHA.VAN.IN ---
Assessment
- Assessment
Renal Function: Appears similar to baseline
Renal Function may be Overestimated due to: age
Concomitant Antimicrobials: ceftriaxone
AUC Dosing Plan
- Dosing Variables
Dosing Weight (kg): 82.7
Dosing CrCl (ml/min): 100
Vd coefficient (L/kg): 0.7
- Empiric Dosing
Initial / Loading Dose: 2000mg - 03/29
Maintenance Regimen: 1250mg q12h
Estimated AUC (mcg*h/mL): 527
Estimated Peak (mcg*h/mL): 33.2
Estimated Trough (mcg/ml): 13.3
Estimated Half Life (H): 7.9
- Monitoring
No levels ordered at this time: consider at steady state
Pharmacokinetics Vancomycin I
- -
Patient Age: 68
Patient Sex: Male
Vancomycin Day #: 1
Indication: Bone And Joint
Requesting Provider: Dr. Villa
Pertinent Antimicrobial Allergies:
sulfa=fever/hives
Height / Weight:
Height 6 ft 1 in
Actual Weight 82.696 kg
IBW in k.9
- Vital Signs / Lab Results
Temp Pulse Resp BP Pulse Ox
99.4 F 70 16 125/65 100
03/30/24 07:25 03/30/24 07:25 03/30/24 07:25 03/30/24 07:25 03/30/24 07:25
Lab Results - Hematology
03/29/24 03/30/24
18:05 04:43
WBC 4.3 L 3.9 L
Band Neutrophils 0
Lab Results - Chemistry
03/29/24 03/30/24
18:05 04:43
BUN 11 9
Creatinine 0.5 L 0.5 L
Estimated Creat Clear > 125
Albumin 3.4 L 3.2 L
Microbiology Results
03/29/24 19:45 Gram Stain - Preliminary
Fluid
[2024-03-30 09:01] LABS: Absolute Neutrophils -Man Diff 1.4 10^3/uL (1.4-6.5); Band Neutrophils 0 % (0-3); Eosinophils 1 % (0-6); Lymphocytes 42 % (20-51); Metamyelocytes 1 % (-); Monocytes 20 % (2-9); Segmented Neutrophils 36 % (42-75)
[2024-03-30 09:02] LABS: Platelets Checked Yes; Total Cells Counted 100
[2024-03-30 09:03] LABS: Anisocytosis Slight; Hypochromasia 1+; Normal RBC Morphology No; Rouleaux Slight
[2024-03-30] MEDS: GLUCOPHAGE XR EXTENDED RELEASE 1000 MG PO (09:03)
[2024-03-30] MEDS: HEPARIN 5000 UNITS SC ×2 (09:03→19:43)
[2024-03-30] MEDS: KCL 20 MEQ PO ×2 (09:03→19:43)
[2024-03-30] MEDS: REGLAN 10 MG PO ×3 (09:04→22:21)
[2024-03-30] MEDS: LYRICA 50 MG PO (09:04)
[2024-03-30] MEDS: ZENPEP DELAYED RELEASE CAPSULE 2 CAPSULE PO ×3 (09:04→17:18)
--- NOTE | 2024-03-30 10:23 | W.PN.HOSP.TC ---
Today's Communication/Plan
-
MRI left knee
follow K, mag, ca and replete as needed
apprec ortho
Assessment / Plan
Assessment / Plan
pt is a 68 year old male
Possible septic arthritis of left knee-- s/p Left knee aspiration performed by IR return 25 cc of thin yellow fluid not grossly purulent sent for analysis (WBC 6550)--await cultures--apprec ortho--NPO in case needs OR (not likely)--getting
vanco/ceftriaxone--pain control--for MRI left knee--ESR and CRP elevated
Hypokalemia secondary to hypomagnesemia, possibly related to chemotherapy--replete both as needed
Hypocalcemia secondary to hypomagnesemia, possibly related to chemotherapy--Calcium repletion
Metastatic pancreatic cancer with history of biliary stenting on chemotherapy--Continue nausea medications
History of Klebsiella bacteremia
Pancytopenia secondary to chemotherapy
Normocytic anemia--Hemoglobin 7.9 from 9.1
Paroxysmal atrial fibrillation--Hold Eliquis--Continue metoprolol
Essential hypertension--Continue valsartan
Hyperlipidemia--Continue statin
Type 2 diabetes--Continue metformin
BPH--Continue dutasteride, Rapaflo
Lung cancer status post lobectomy 2020
GERD/hiatal hernia--Continues omeprazole
GUZMÁN
Arthritis/sciatica--Continue fentanyl patch--Continue pregabalin
Sleep apnea on CPAP
Diverticulosis
DNR/DNI
DVT prophylaxis�heparin
Anticipated Discharge: > 48 hours
Subjective/Interval History
-
Date of Service: March 30, 2024
pt with knee immobilizer on--walking around with assistance of a cane
Objective Data
-
Labs:
Laboratory Results
03/30/24
04:43
WBC 3.9 L
Hgb 8.0 L
Hct 24.7 L
Plt Count 220
Sodium 138
Potassium 2.8 L
Chloride 104
Carbon Dioxide 26
BUN 9
Creatinine 0.5 L
Glucose 112 H
Calcium 7.5 L
Total Bilirubin 1.0
AST 19
ALT 16
Alkaline Phosphatase 116
Vital Signs:
max temp for 24 hours
03/29/24
17:29
Temp 100.3 F
Vital Signs
Temp Pulse Resp BP Pulse Ox
99.4 F 70 16 125/65 100
03/30/24 07:25 03/30/24 07:25 03/30/24 07:25 03/30/24 07:25 03/30/24 07:25
I&O
03/29/24 03/30/24 03/31/24
06:59 06:59 06:59
Intake Total 0 / 0
Balance 0 / 0
Review of Systems
-
All other systems: Reviewed and negative
Physical Exam
-
General: Well Developed, Well Nourished and No Apparent Distress
HEENT: Normocephalic and Atraumatic
Respiratory: Clear to Auscultation; Negative Wheezes or Rhonchi
Cardiac: Regular Rhythm and S1/S2; Negative Murmur
GI: Soft, Nontender, Nondistended and Normal Bowel Sounds
Musculoskeletal: No Clubbing, No Cyanosis, No Edema and Other (left knee with immobilizer)
Neuro: Awake and Alert
Psych: Calm
[2024-03-30] MEDS: KCL 270 MEQ IV (10:48)
[2024-03-30] MEDS: KCL 40 MEQ PO (10:48)
--- NOTE | 2024-03-30 13:34 | W.PN.ORTHO ---
Today's Communication / Plan
-
Left knee aspiration revealing 25 cc yellow of thin yellow fluid not grossly purulent. Fluid WBC 6,550. Fluid PMN 73.2%. Negative for crystals. Preliminary Gram stain revealing many WBC with no organisms seen. Fluid culture negative for growth
after 18 to 24 hours. On admission, ESR 121 and CRP 49. Tmax 100.3 F.
At this time, we will wait cultures. Patient reports that he feels better secondary to IV antibiotics. Tentatively, he is NPO pMN in the event cultures turn positive, at which point we will proceed with an arthroscopic I&D, although this is
unlikely.
Continue with knee immobilizer. We will await left knee MRI for further evaluation. May incorporate warm compress to knee.
Appreciate medical team. Orthopedic surgery will continue to follow along.
Assessment
.
Distal Motor Intact: Yes
Dressing:
Clean, dry and intact.
Plan
.
Activity:
Out of bed.
PT/OT
Subjective
.
.:
Patient resting comfortably. Reports that he is feeling better.
Vital Signs and Labs
.
Vital Signs and Labs:
Lab Results
03/30/24 04:43
03/30/24 04:43
Temp Pulse Resp BP Pulse Ox
99.4 F 70 16 125/65 100
03/30/24 07:25 03/30/24 07:25 03/30/24 07:25 03/30/24 07:25 03/30/24 07:25
Physical Exam
-
Physical examination of the left knee reveals a healing abrasion over the anterior knee. Knee immobilizer intact. Betadine wash over knee secondary to IR US guided aspiration. Edema has seemed to improve in comparison to yesterday. Mild warmth
noted. No ecchymosis. Diffuse tenderness to palpation. ROM restricted actively and passively secondary to pain. Patient unable to actively extend knee or perform SLR. Calf is soft and nontender. Able to plantarflex and dorsiflex LLE. NVI distally.
[2024-03-30 15:25] VITALS: BP 132/69
--- NOTE | 2024-03-30 16:44 | W.PN.UPDATE ---
Update Note
Progress Note Update
Impression of Left Knee MRI:
1. SEVERE ACUTE PARTIAL-THICKNESS INTERSTITIAL TEAR of the DISTAL QUADRICEPS TENDON ATTACHMENT involving 50-75% of the tendon fiber thickness.
2. Small 7.7 mm acute nondisplaced cortical avulsion fracture of the anterior superior patella deep to the quadriceps tendon attachment.
3. BUCKET-HANDLE TEAR of the body and posterior horn of the MEDIAL MENISCUS.
4. Mild tricompartmental cartilage wear.
5. Moderate-sized suprapatellar joint effusion.
6. Severe diffuse anterior subcutaneous edema.
MRI was reviewed with Dr. Barry. Will treat partial-thickness distal quadriceps tendon tear non-operatively at this time, maintaining knee immobilizer with transition to knee ROM brace in about 3-4 weeks. Will also continue to follow fluid cultures.
Will continue to follow.
[2024-03-30] MEDS: VANCOCIN 275 MG IV (17:18)
[2024-03-30] MEDS: TOPROL XL 50 MG PO (17:18)
[2024-03-30] MEDS: VITAMIN D3 (cholecalciferol) 125 MCG PO (17:18)
[2024-03-30] MEDS: CRESTOR 20 MG PO (17:18)
[2024-03-30] MEDS: STERILE WATER FOR INJECTION 10 ML IV (19:42)
[2024-03-30] MEDS: ROCEPHIN 1000 MG IV (19:43)
[2024-03-30] MEDS: COMPAZINE 10 MG PO (22:20)
[2024-03-30] MEDS: LYRICA 75 MG PO (22:20)
[2024-03-30] MEDS: FLOMAX 0.400000000000000022 MG PO (22:20)
[2024-03-30] MEDS: PROTONIX 40 MG PO (22:21)
[2024-03-30] MEDS: PROSCAR 5 MG PO (22:21)
[2024-03-30] MEDS: DIOVAN 80 MG PO (22:24)
[2024-03-30 23:34] VITALS: BP 139/72
[2024-03-31 05:22] LABS: Hematocrit 23.9 % (39.0-52.0); Hemoglobin 7.9 g/dL (13.0-18.0); Mean Corp Hgb Conc. 33.1 g/dL (33.0-37.0); Mean Corpuscular Hgb 29.7 pg (27.0-31.0); Mean Corpuscular Volume 89.8 fL (80.0-94.0); Mean Platelet Volume 8.8 fL (7.4-10.4); Platelet Count 213 10^3/uL (130-400); Red Blood Cell Count 2.66 10^6/uL (4.70-6.10); Red Cell Dist. Width 16.9 % (11.5-14.5); White Blood Cell Count 3.8 10^3/uL (4.8-10.8)
[2024-03-31] MEDS: VANCOCIN 275 MG IV (05:50)
[2024-03-31 05:59] LABS: Blood Urea Nitrogen 12 mg/dl (9-20); Calcium 8.4 mg/dl (8.4-10.2); Carbon Dioxide 26 mmol/L (22-30); Chloride 105 mmol/L (98-107); Estimated Creatinine Clearance > 125 ml/min; Glucose 111 mg/dl (70-99); Magnesium 1.8 mg/dl (1.6-2.3); Potassium 3.9 mmol/L (3.5-5.1); Sodium 139 mmol/L (135-145); eGFR > 60.00
[2024-03-31 07:00] VITALS: BP 128/71
[2024-03-31 07:38] LABS: Erythrocyte Sed Rate 117 mm/hour (0-20)
--- NOTE | 2024-03-31 07:38 | W.PN.ORTHO ---
Today's Communication / Plan
-
MRI of the left knee was reviewed with Dr. Barry and revealed a partial-thickness distal quadriceps tendon tear with a 7.7 mm acute nondisplaced cortical avulsion fracture of the anterior superior patella deep to the quadriceps tendon attachment.
This will be treated non-operatively. He will maintain knee immobilizer for roughly 6 weeks and will eventually be transitioned to knee range of motion brace.
Left knee aspiration revealing 25 cc yellow of thin yellow fluid not grossly purulent. Fluid WBC 6,550. Fluid PMN 73.2%. Negative for crystals. Preliminary Gram stain revealing many WBC was no organisms seen. Fluid culture without growth after
18-24 hrs. Spoke to micro department this AM, and fluid culture still without growth. Patient afebrile. Patient reports that he is feeling well. NPO order removed and he may have diet.
Patient discussed with Dr. Sepulveda, who will have ID weigh in prior to discharge. Patient stable for discharge to home from Orthopedic standpoint.
Patient will follow-up in the office as an outpatient and information was left in discharge tab.
All questions were answered.
Assessment
.
Distal Motor Intact: Yes
Dressing:
Clean, dry and intact.
Plan
.
DVT Prophylaxis: Heparin
Activity:
Out of bed.
PT/OT
Discharge Plan: Home
Subjective
.
.:
Patient resting comfortably. Reports he is feeling well. No acute complaints. Denies any fevers, chills or night sweats.
Vital Signs and Labs
.
Vital Signs and Labs:
Lab Results
03/31/24 05:14
03/31/24 05:14
Temp Pulse Resp BP Pulse Ox
98.1 F 66 16 128/71 97
03/31/24 07:00 03/31/24 07:00 03/31/24 07:00 03/31/24 07:00 03/31/24 07:00
Physical Exam
-
Physical examination of the left knee reveals knee immobilizer intact. Tenderness to palpation over the distal quadriceps tendon and anterior superior patella. Range of motion deferred. Calf is soft and nontender. Able to plantarflex and dorsiflex
LLE. NVI distally.
[2024-03-31] MEDS: KCL 20 MEQ PO (08:14)
[2024-03-31] MEDS: REGLAN 10 MG PO (08:14)
[2024-03-31] MEDS: GLUCOPHAGE XR EXTENDED RELEASE 1000 MG PO (08:14)
[2024-03-31] MEDS: HEPARIN 5000 UNITS SC (08:15)
[2024-03-31] MEDS: ZENPEP DELAYED RELEASE CAPSULE 2 CAPSULE PO ×2 (08:15→12:12)
[2024-03-31] MEDS: LYRICA 50 MG PO (08:15)
--- NOTE | 2024-03-31 08:16 | PHA.VAN.FU ---
Vancomycin Assessment / Plan
- Assessment
Renal Function: Stable
WBC's are: Stable
In the past 24 hrs, patient has been: Afebrile
Concomitant Antimicrobials: CEFTRIAXONE
- Dosing Plan
Continue: 1250MG Q12H
- Monitoring Plan
Peak Level: 04/01 @2100
Trough Level: 04/02 @0530
- Follow Up
Pharmacy will continue to follow.
Vancomycin Follow UP
- -
Patient Age: 68
Patient Sex: Male
Vancomycin Day #: 2
Indication: Bone And Joint
Requesting Provider: Dr. Villa
Pertinent Antimicrobial Allergies:
sulfa=fever/hives
Height / Weight:
Height 6 ft 1 in
Actual Weight 82.696 kg
IBW in k.9
- Vital Signs / Lab Results
Temp Pulse Resp BP Pulse Ox
98.1 F 66 16 128/71 97
03/31/24 07:00 03/31/24 07:00 03/31/24 07:00 03/31/24 07:00 03/31/24 07:00
Lab Results - Hematology
03/29/24 03/30/24 03/31/24
18:05 04:43 05:14
WBC 4.3 L 3.9 L 3.8 L
Band Neutrophils 0 0
Lab Results - Chemistry
03/29/24 03/30/24 03/31/24
18:05 04:43 05:14
BUN 11 9 12
Creatinine 0.5 L 0.5 L 0.5 L
Estimated Creat Clear > 125 > 125
Albumin 3.4 L 3.2 L
Microbiology Results
03/29/24 18:24 Blood Culture - Preliminary
Blood/Venous No Growth in 24 hours- Final report to follow
03/29/24 18:24 Blood Culture - Preliminary
Blood/Venous No Growth in 24 hours- Final report to follow
03/29/24 19:45 Body Fluid Culture - Preliminary
Fluid No Growth After 18-24 Hours
Gram Stain - Preliminary
--- NOTE | 2024-03-31 11:08 | CM ---
CM met with pt bedside
Pt [place] alone [place]
Pt is independent with his ADLs
Continues to receive chemo/radiation through [facility]
Pt has a working cpap and no need for him to use anymore since 100 lb weight loss
PCP- Coby Kline
Rx- [facility] [address]
Pt notes independence throughout room
No dc needs noted
He is hopeful for dc today pending ID clearance
Discharge Disposition- home, no needs- family transport
--- NOTE | 2024-03-31 11:09 | W.PN.HOSP.TC ---
Today's Communication/Plan
-
await ID input
Assessment / Plan
Assessment / Plan
pt is a 68 year old male
Possible septic arthritis of left knee--doubt, WBC not high enough, culture negative-- s/p Left knee aspiration performed by IR return 25 cc of thin yellow fluid not grossly purulent sent for analysis (WBC 6550)--apprec ortho--will consult
ID--getting vanco/ceftriaxone--pain control-- MRI left knee shows partial thickness distal quadriceps tendon tear with a 7.7 mm acute nondisplaced cortical avulsion fracture of the anterior superior patella deep to the quadriceps tendon
attachment--ortho managing nonoperatively--ESR and CRP elevated
Hypokalemia secondary to hypomagnesemia, possibly related to chemotherapy--replete both as needed
Hypocalcemia secondary to hypomagnesemia, possibly related to chemotherapy--Calcium repletion
Metastatic pancreatic cancer with history of biliary stenting on chemotherapy--Continue nausea medications
History of Klebsiella bacteremia
Pancytopenia secondary to chemotherapy
Normocytic anemia--Hemoglobin 7.9 from 9.1
Paroxysmal atrial fibrillation--Hold Eliquis--Continue metoprolol
Essential hypertension--Continue valsartan
Hyperlipidemia--Continue statin
Type 2 diabetes--Continue metformin
BPH--Continue dutasteride, Rapaflo
Lung cancer status post lobectomy 2020
GERD/hiatal hernia--Continues omeprazole
GUZMÁN
Arthritis/sciatica--Continue fentanyl patch--Continue pregabalin
Sleep apnea on CPAP
Diverticulosis
DNR/DNI
DVT prophylaxis�heparin
Anticipated Discharge: Today
Subjective/Interval History
-
Date of Service: March 31, 2024
pt wants to go home
Objective Data
-
Labs:
Laboratory Results
03/31/24
05:14
WBC 3.8 L
Hgb 7.9 L
Hct 23.9 L
Plt Count 213
Sodium 139
Potassium 3.9 D
Chloride 105
Carbon Dioxide 26
BUN 12
Creatinine 0.5 L
Glucose 111 H
Calcium 8.4
Vital Signs:
max temp for 24 hours
03/30/24
23:34
Temp 99.4 F
Vital Signs
Temp Pulse Resp BP Pulse Ox
98.1 F 66 16 128/71 97
03/31/24 07:00 03/31/24 07:00 03/31/24 07:00 03/31/24 07:00 03/31/24 07:00
I&O
03/30/24 03/31/24 04/01/24
06:59 06:59 06:59
Intake Total 0 / 0 1565 / 1565
Balance 0 / 0 1565 / 1565
Review of Systems
-
All other systems: Reviewed and negative
Physical Exam
-
General: Well Developed, Well Nourished and No Apparent Distress
HEENT: Normocephalic and Atraumatic
Respiratory: Clear to Auscultation; Negative Wheezes or Rhonchi
Cardiac: Regular Rhythm and S1/S2; Negative Murmur
GI: Soft, Nontender, Nondistended and Normal Bowel Sounds
Musculoskeletal: No Clubbing, No Cyanosis, No Edema and Other (left knee immobilized)
--- NOTE | 2024-03-31 13:41 | CON.ID ---
Consultation
-
Date/Time Consultation Requested: 03/31/24 8:37
Date/Time Consultation Performed: 03/31/24 13:44
Requesting Provider: Dr Sepulveda
Performing Provider: Dr Obrien
Reason for Consultation: septic joint
Chief Complaint / Past History
Chief Complaint
left knee pain
History of Present Illness
68-year-old male past medical history of metastatic pancreatic cancer with history of biliary stenting on chemotherapy last received 2 weeks ago, Klebsiella bacteremia, pancytopenia, lung cancer status post lobectomy 2020, diverticulosis,
presenting with left knee pain, swelling and inability to bear weight for the past 4 days. + trauma about 2-1/2 weeks ago tripped on a hose and banged his left hip and knee with some minor bruising at that time. Over the past few days he developed
pain, swelling and inability to bear weight. He did not have a fever
Since arrival here t max 100.3 no further fevers, bp stable, wbc 3.8, hgb 7.9, plt 213, cr 0.5, t bili 1.0, ast 19, alt 16, alk phos 116, arthrocentesis wbc 6K, 73% PMNs, gram stain no organisms, no crystals, knee MRI SEVERE ACUTE PARTIAL-THICKNESS
INTERSTITIAL TEAR of the DISTAL QUADRICEPS TENDON ATTACHMENT involving 50-75% of the tendon fiber thickness, meniscus tear, avulsion fx, mod joint effusion, body fluid and blood cultures no growth
Past History
Additional Past Medical History:
(metastatic pancreatic cancer with history of biliary stenting on chemotherapy last received 2 weeks ago, Klebsiella bacteremia, pancytopenia, paroxysmal atrial fibrillation on Eliquis, hypertension, hyperlipidemia, diabetes, BPH, lung cancer status
post lobectomy 2020, GERD/hiatal hernia, GUZMÁN, arth)
Past Surgical History: None
Allergy History:
latex Allergy (Verified 03/29/24 17:31)
Hives
Sulfa (Sulfonamide Antibiotics) Allergy (Verified 03/29/24 17:31)
Fever, Hives
Medications Reviewed: Yes
Social History
Tobacco: Non-Smoker
Alcohol: None
Drug: None
Family History
Family History: Not Pertinent
Review of Systems
Review of Systems
General: Negative Fever or Chills
All systems: All other systems were reviewed and were negative
Vital Signs
Temp Pulse Resp BP Pulse Ox
98.1 F 66 16 128/71 97
03/31/24 07:00 03/31/24 07:00 03/31/24 07:00 03/31/24 07:00 03/31/24 07:00
Physical Exam
Physical Exam
Constitutional: No Acute Distress
Cardiovascular: Regular Rate and S1/S2; Negative Murmur or Rub
Pulmonary: Clear and Symmetric; Negative Wheezes, Rales or Rhonchi
Gastrointestinal: Soft, Non Tender, Non Distended and Normal Bowel Sounds
Extremities: Other (mild knee swelling, no erythema, warmth. area mildly tender as expected)
Skin: Warm and Dry; Negative Rash or Jaundice
Lab / Diagnostic Study Results
03/31/24 05:14
03/31/24 05:14
Abs Immat Gran (auto) 0.0 10^3/uL (0-0.05) 03/29/24 18:05
Absolute Neuts (auto) 1.7 10^3/uL (1.4-6.5) 03/29/24 18:05
Absolute Lymphs (auto) 1.5 10^3/uL (1.2-3.4) 03/29/24 18:05
Absolute Monos (auto) 1.1 10^3/uL (0.1-0.6) H 03/29/24 18:05
Absolute Basos (auto) 0.0 10^3/uL (0-0.2) 03/29/24 18:05
Total Counted 100 03/30/24 04:43
Immature Gran % 0.5 % (0-0.5) 03/29/24 18:05
Neutrophils % 39.3 % (42.2-75.2) L 03/29/24 18:05
Lymphocytes % 34.7 % (20.5-51.1) 03/29/24 18:05
Monocytes % 25.1 % (1.7-9.3) H 03/29/24 18:05
Eosinophils % 0.2 % (0-6) 03/29/24 18:05
Basophils % 0.2 % (0-2) 03/29/24 18:05
Abs Neuts (Manual) 1.4 10^3/uL (1.4-6.5) 03/30/24 04:43
Segmented Neutrophils 36 % (42-75) L 03/30/24 04:43
Band Neutrophils 0 % (0-3) 03/30/24 04:43
Lymphocytes (Manual) 42 % (20-51) 03/30/24 04:43
Eosinophils (Manual) 1 % (0-6) 03/30/24 04:43
ESR 117 mm/hour (0-20) H 03/31/24 05:14
C-Reactive Protein 50.10 mg/L (0.0-10.00) H 03/31/24 05:14
Microbiology Results
Micro:
03/29/24 19:45 Body Fluid Culture - Preliminary
Fluid No Growth After 48 Hours
Gram Stain - Preliminary
03/29/24 18:24 Blood Culture - Preliminary
Blood/Venous No Growth in 24 hours- Final report to follow
03/29/24 18:24 Blood Culture - Preliminary
Blood/Venous No Growth in 24 hours- Final report to follow
Assessment / Plan
Ruled out Septic knee
alternative diagnosis probable - trauma see MRI report for full details
joint aspiration not consistent with septic joint and culture no growth to date
stable for dc follow up with orthopedics
--- NOTE | 2024-03-31 14:22 | W.DCSUMMARY ---
Discharge Summary
Discharge Data
Date of Admission: 03/29/24
Date of Discharge: 03/31/24
-
Pending Results: No
Hospital Course
Primary care physician : Coby Kline
Principal Discharge diagnosis : Painful left knee likely due to to partial thickness tear of the distal quadriceps tendon, hypokalemia/hypocalcemia/hypomagnesemia
Chronic Discharge diagnosis : Metastatic pancreatic cancer with history of biliary stenting and undergoing chemotherapy, pancytopenia secondary to chemotherapy paroxysmal atrial fibrillation, essential hypertension, hyperlipidemia, type 2 diabetes
mellitus, benign prostatic hyperplasia, history of lung cancer status post lobectomy, gastroesophageal reflux disease with hiatal hernia, nonalcoholic steatohepatitis, arthritis, sleep apnea
Hospital Course : Patient is a 68-year-old male with a history of metastatic prostate cancer and biliary stenting who presented with left knee pain, swelling, and inability to bear weight for at least 4 days prior to admission. 2-1/2 weeks prior to
admission he tripped on a loose close in the garden and banged his left hip and left knee with some minor bruising at that time. Over the past few days prior to admission he developed pain swelling and inability to bear weight. There was some
concern for septic knee and the patient was admitted.
Problem #1: Painful left knee. Patient was seen in consultation by orthopedics. Interventional radiology aspirated the knee with return of 25 mL of thin yellow fluid which was not grossly purulent. White blood cell count was 6550 which does not
equate to septic arthritis. However, patient is immunocompromised with ongoing chemotherapy. MRI of the knee was done which shows a partial-thickness tear of the distal quadriceps tendon with a 7.7 mm acute nondisplaced cortical avulsion fracture
of the anterior superior patella. The white blood cell count is likely reactive to this issue. Patient was placed on vancomycin and ceftriaxone. Blood and fluid cultures are negative. Infectious disease was consulted and agrees that the patient
is not infected. Orthopedics will be managing this tear nonoperatively. Patient is in a knee immobilizer and should follow-up with orthopedics as indicated. He will not be discharged on any antibiotics.
Problem #2: All other medical issues. These include Metastatic pancreatic cancer with history of biliary stenting and undergoing chemotherapy, pancytopenia secondary to chemotherapy paroxysmal atrial fibrillation, essential hypertension,
hyperlipidemia, type 2 diabetes mellitus, benign prostatic hyperplasia, history of lung cancer status post lobectomy, gastroesophageal reflux disease with hiatal hernia, nonalcoholic steatohepatitis, arthritis, sleep apnea. These medical issues
were stable during his hospitalization. Medications were continued as able.
Patient is stable for discharge home at this time. If there are any questions regarding this dictation or his hospital stay, please not hesitate to call. Our office number is [phone].
Important imaging findings :
MRI LEFT KNEE IMPRESSION:
1. SEVERE ACUTE PARTIAL-THICKNESS INTERSTITIAL TEAR of the DISTAL QUADRICEPS TENDON ATTACHMENT involving 50-75% of the tendon fiber thickness.
2. Small 7.7 mm acute nondisplaced cortical avulsion fracture of the anterior superior patella deep to the quadriceps tendon attachment.
3. BUCKET-HANDLE TEAR of the body and posterior horn of the MEDIAL MENISCUS.
4. Mild tricompartmental cartilage wear.
5. Moderate-sized suprapatellar joint effusion.
6. Severe diffuse anterior subcutaneous edema.
Discharge Plan
-
Patient Disposition: Home (Routine Discharge)
Discharge Diagnosis/Procedures: Left knee pain likely secondary to tear rather than septic knee, hypokalemia, hypomagnesemia, hypocalcemia, metastatic pancreatic cancer on chemotherapy, pancytopenia due to chemotherapy, paroxysmal atrial
fibrillation, essential hypertension, hyperlipidemia, type 2 diabetes mellitus, benign prostatic hyperplasia, lung cancer history status post lobectomy, gastroesophageal reflux disease with hiatal hernia, nonalcoholic steatohepatitis, arthritis with
sciatica, obstructive sleep apnea
Condition: Good
Diet: As tolerated and Diabetic, Carb Controlled
Activity: As tolerated
Driving Restrictions: Not until seen by your Dr
Bathing Restrictions: None
Referrals:
Bandar Dickerson PA-C [Specified Professional Personl] - in two weeks
Coby Kline MD [Family Provider] - in less than 1 week
Prescriptions:
Continued
metoprolol succinate 50 mg Tablet Extended Release 24 Hr
50 mg PO QPM
esomeprazole magnesium 40 mg Capsule,Delayed Release(Dr/Ec)
40 mg PO HS
azelastine 137 mcg (0.1 %) Aerosol,[place]
1 spray INTRANASAL DAILY
rosuvastatin 20 mg Tablet
20 mg PO QPM
cholecalciferol (vitamin D3) [Vitamin D3] 125 mcg (5,000 unit) Tablet
125 mcg PO QPM
dutasteride 0.5 mg Capsule
0.5 mg PO HS
Eliquis 5 mg tablet
5 mg PO BID
silodosin [Rapaflo] 8 mg Capsule
8 mg PO HS
acetaminophen [Tylenol] 325 mg capsule
650 mg PO QIDPRN PRN (Reason: mild pain)
metformin 1,000 mg tablet extended release 24 hr
1,000 mg PO DAILY
valsartan 80 mg tablet
80 mg PO HS
prochlorperazine maleate 10 mg tablet
10 mg PO HS
hydromorphone 2 mg tablet
4 mg PO Q4H PRN (Reason: severe pain)
Patient Comments:
03/29/2024: last filled 02/19/24, 84 tabs for 14 days from [facility]
potassium chloride [Klor-Con M20] 20 mEq Tablet,Er Particles/Crystals
20 meq PO BID
pantoprazole 40 mg tablet,delayed release (DR/EC)
40 mg PO HS
fentanyl 25 mcg/hr patch 72 hour
1 patch transdermal Q72H
Patient Comments:
03/29/2024: last filled 03/11/24, 10 patches for 30 days from [id number]
metoclopramide HCl 10 mg tablet
10 mg PO TID
pregabalin 25 mg capsule
50 mg PO DAILY
Patient Comments:
03/29/2024: last filled 02/29/24, 19 tabs for 19 days from [id number]
pregabalin 25 mg capsule
75 mg PO HS
Patient Comments:
03/29/2024: last filled 02/29/24, 19 tabs for 19 days from [id number]
Creon 36,000-114,000- 180,000 unit capsule,delayed release(DR/EC)
2 cap PO MEALS
Discharge Orders:
Discharge Patient (As Directed); Ordered 03/31/24
Ordered By: Asuncion Sepulveda
Discharge Date and Time
Print Language: NEPALESE
[2024-03-31 14:30] VITALS: BP 147/76
[2024-03-31 15:00] VITALS: BP 147/73
[2024-04-01 14:57] LABS: Lyme Antibody Screen, EIA Negative (Negative)
== END 2024-03-31 15:27 | disposition home or self-care (01) | DRG 562 ==
LOC: 4 EAST ACU 20:54
PROVIDERS: Radiology Vascular & Interventional Radiology; ADMITTING PHYSICIAN Hospitalist; ATTENDING PHYSICIAN Internal Medicine; CONSULT PHYSICIAN Orthopaedic Surgery Hand Surgery; CONSULT PHYSICIAN Student in an Organized Health Care Education/Training Program; EMERGENCY PHYSICIAN Student in an Organized Health Care Education/Training Program; FAMILY PHYSICIAN Internal Medicine
PROC: 0S9D3ZX Drainage of Left Knee Joint, Percutaneous Approach, Diagnostic (ICD-10-PCS; 2024-03-30)
DX: S83.202A Bucket-handle tear of unspecified meniscus, current injury, unspecified knee, initial encounter (principal); D61.810 Antineoplastic chemotherapy induced pancytopenia; C25.9 Malignant neoplasm of pancreas, unspecified; D84.9 Immunodeficiency, unspecified; E87.6 Hypokalemia; E83.42 Hypomagnesemia; E83.51 Hypocalcemia; T45.1X5A Adverse effect of antineoplastic and immunosuppressive drugs, initial encounter; Z79.01 Long term (current) use of anticoagulants; I48.0 Paroxysmal atrial fibrillation; E78.00 Pure hypercholesterolemia, unspecified; I10 Essential (primary) hypertension; E11.36 Type 2 diabetes mellitus with diabetic cataract; N40.0 Benign prostatic hyperplasia without lower urinary tract symptoms; K21.9 Gastro-esophageal reflux disease without esophagitis; K44.9 Diaphragmatic hernia without obstruction or gangrene; G47.30 Sleep apnea, unspecified; Z66 Do not resuscitate; K57.30 Diverticulosis of large intestine without perforation or abscess without bleeding; M19.90 Unspecified osteoarthritis, unspecified site; K75.81 Nonalcoholic steatohepatitis (NASH)
CPT/HCPCS: 20611; 73721; 80048; 80053; 82962; 83735; 85025; 85027; 85652; 86140; 86618; 87015; 87040; 87070; 87205; 89051; 89060; 96374; 99285

== ENCOUNTER 2024-07-04 06:24 | Day surgery (SDC) | payer MEDICARE, SELFPAY ==
[2024-07-04 12:20] VITALS: BMI 24.1
[2024-07-04 12:30] VITALS: BP 136/63
[2024-07-04 12:32] LABS: Glucose - Point of Care 97 mg/dl (70-99)
[2024-07-04 12:52] VITALS: BMI 24.1
[2024-07-04 14:51] VITALS: BP 148/78
[2024-07-04 15:00] VITALS: BP 155/77
[2024-07-04 15:15] VITALS: BP 156/77
== END 2024-07-04 15:39 | disposition home or self-care (01) ==
LOC: SDS 06:24
PROVIDERS: ATTENDING PHYSICIAN Internal Medicine Gastroenterology; FAMILY PHYSICIAN Internal Medicine
DX: T85.590A Other mechanical complication of bile duct prosthesis, initial encounter (principal); C25.0 Malignant neoplasm of head of pancreas; R74.8 Abnormal levels of other serum enzymes; Z96.89 Presence of other specified functional implants; Z46.59 Encounter for fitting and adjustment of other gastrointestinal appliance and device
CPT/HCPCS: 43276; 43264; 74330; 76000; 82962; C1769; C2617

== ENCOUNTER 2024-11-26 06:19 | Day surgery (SDC) | payer MEDICARE, SELFPAY ==
[2024-11-26 15:15] LABS: Glucose - Point of Care 139 mg/dl (70-99)
== END 2024-11-26 16:02 | disposition home or self-care (01) ==
LOC: GI 06:19
PROVIDERS: ATTENDING PHYSICIAN Internal Medicine Gastroenterology
DX: R68.81 Early satiety (principal); R11.0 Nausea; K31.89 Other diseases of stomach and duodenum; K31.5 Obstruction of duodenum
CPT/HCPCS: 43235; 82962

== ENCOUNTER 2025-01-16 14:20 | Inpatient (IN) | payer MEDICARE, SELFPAY ==
[2025-01-16 10:35] VITALS: BP 125/75
[2025-01-16 11:12] VITALS: BMI 18.9
[2025-01-16 11:18] VITALS: BP 120/89
--- NOTE | 2025-01-16 11:22 | EDRN ---
IV VAT RN called for L ACW port access and blood draw.
--- NOTE | 2025-01-16 11:34 | EDRN ---
Dr. Arteaga in to see pt.
--- NOTE | 2025-01-16 11:35 | ED.GENMED ---
History of Present Illness
General
Chief Complaint: Abdominal Symptoms
Source: patient
Exam Limitations: none
Time Seen by Provider: 01/16/25 11:30
History of Present Illness
History of Present Illness:
See MDM
Past History
Past History
ED Past Medical History: Arrthythmia, Cancer, HTN, Hypercholesterolemia and IDDM
ED Past Surgical History: Orthopedic and Other (Lobectomy bile duct stents cataracts)
Social History
Tobacco: Non-smoker
Personal:
Phy Exam
Physical Exam
Physical Exam:
See MDM
Course
Orders/Labs/Results
Orders:
Orders
01/16/25 11:30
0.9% Sodium Chloride 1000 ml [Nss] 1,000 ml IV BOLUS
HYDROmorphone [Dilaudid] 1 mg .ROUTE .STK-MED ONE
HYDROmorphone [Dilaudid] 1 mg IV NOW STA
01/16/25 11:50
Complete Blood Count/With Diff Urgent
Comprehensive Metabolic Panel Urgent
Lipase Urgent
01/16/25 11:57
HYDROmorphone [Dilaudid] 1 mg IV NOW STA
Lorazepam [Ativan] 0.5 mg IV NOW STA
01/16/25 11:58
Lorazepam [Ativan] 2 mg .ROUTE .STK-MED ONE
01/16/25 12:49
Potassium Chloride [KCl] 40 meq 0.9% Sodium Chloride 250 ml [Nss] 250 ml IV NOW
Abnormal Lab Results
01/16/25
11:50
RBC 4.33 L 10^6/uL
(4.70-6.10)
Hgb 12.0 L g/dL
(13.0-18.0)
Hct 35.9 L %
(39.0-52.0)
Absolute Lymphs (auto) 0.4 L 10^3/uL
(1.2-3.4)
Immature Gran % 0.6 H %
(0-0.5)
Neutrophils % 82.9 H %
(42.2-75.2)
Lymphocytes % 8.0 L %
(20.5-51.1)
Sodium 131 L mmol/L
(135-145)
Potassium 2.9 L mmol/L
(3.5-5.1)
Chloride 90 L mmol/L
(98-107)
Carbon Dioxide 31 H mmol/L
(22-30)
Glucose 179 H mg/dl
(70-99)
Alkaline Phosphatase 233 H U/L
(38-126)
Lipase < 10 L U/L
(23-300)
01/16/25 11:50
01/16/25 11:50
Vital Signs
Initial and Last Documented VS:
Initial Vital Signs
Temp Pulse Resp BP Pulse Ox
98.3 F 108 16 125/75 98
01/16/25 10:35 01/16/25 10:35 01/16/25 10:35 01/16/25 10:35 01/16/25 10:35
Last Documented Vital Signs
Temp Pulse Resp BP Pulse Ox
98.3 F 108 18 120/89 99
01/16/25 10:35 01/16/25 11:18 01/16/25 11:18 01/16/25 11:18 01/16/25 11:18
MDM/Problems Addressed
Differential Diagnosis Includes:
HPI and MDM Narrative:
69-year-old male presenting for evaluation of uncontrolled pain and dehydration. Patient has active pancreatic cancer and is already on a fentanyl patch and Dilaudid at home. Patient states his pain is uncontrolled and he is unable to tolerate any
food or water
On exam, he is weak and frail. He has generalized abdominal tenderness which she states is chronic. Will continue to bolus and rebolus with Dilaudid and provide IV fluids and admit
Physical exam
General: Weak and frail, uncomfortable
HEENT: protecting airway. Dry mucous membranes
Neck: appears supple
CV: No evidence of cyanosis
Resp: No accessory muscle use
Abd: Non-distended. Generalized tenderness throughout
Extremities: No deformities
Neuro: alert
Psych: Normal affect
Skin: Intact
Problems Addressed including Acute and Chronic Conditions affecting care:
1. Cancer pain
Acuity: acute
Prognosis: unstable
Details: Will start IV Dilaudid
2. Dehydration
Acuity: acute
Prognosis: stable
Details: Will start IV fluids
3. Hypokalemia
Acuity: acute
Prognosis: stable
Details: Given his inability to tolerate p.o., will start IV potassium
Differential Diagnosis (but not limited to): Cancer pain, pancreatitis
Testing considered: CT abdomen/pelvis
Drug therapy (if applicable): OTC meds, please see d/c instruction regarding Rx drugs
Amount and/or Complexity of Data Reviewed
Clinical info obtained from: Patient
External data reviewed: N/A
Labs I independently reviewed (but not limited to): Hypokalemia
Radiology: N/A
Pulse Ox: not hypoxic
EKG independently reviewed: N/A
Addiction Professional: N/A
Critical Care: N/A
Risk of Complication:
Social Determinants of health: Good social support
Discussed with other providers: N/A
Escalation of Care includes Admit/Obs: After being observed in the Emergency Department, pt stable for discharge.
Occasional wrong word or 'sound a like' substitutions may have occurred due to the inherent limitations of voice recognition software. Read the chart carefully and recognize, using context, where substitutions have occurred.
*Critical Care Note
Total Time (30-74mins, 75-104mins- exclusive of procedures): Not Applicable
ED Attending Note
-
Portions of this chart may have been created with voice recognition software.� Occasional wrong word or��sound alike� substitutions may have occurred due to the inherent limitations of voice recognition software.
Discharge Plan
Departure
Patient Disposition: Admit
Date of Disposition: 01/16/25
Time of Disposition: 12:57
Admit to: Med/Surg
Presentation/result/management discussed w/ accepting MD/DO: Hospitalist
Discharge Problem:
Cancer related pain, Hypokalemia, Acute dehydration
Prescriptions:
No Action
metoprolol succinate 50 mg Tablet Extended Release 24 Hr
50 mg PO QPM
esomeprazole magnesium 40 mg Capsule,Delayed Release(Dr/Ec)
40 mg PO HS
azelastine 137 mcg (0.1 %) Aerosol,[place]
1 spray INTRANASAL DAILY
rosuvastatin 20 mg Tablet
20 mg PO QPM
cholecalciferol (vitamin D3) [Vitamin D3] 125 mcg (5,000 unit) Tablet
125 mcg PO QPM
dutasteride 0.5 mg Capsule
0.5 mg PO HS
Eliquis 5 mg tablet
5 mg PO BID
silodosin [Rapaflo] 8 mg Capsule
8 mg PO HS
acetaminophen [Tylenol] 325 mg capsule
650 mg PO QIDPRN PRN (Reason: mild pain)
metformin 1,000 mg tablet extended release 24 hr
1,000 mg PO DAILY
valsartan 80 mg tablet
80 mg PO HS
hydromorphone 2 mg tablet
4 mg PO Q4H PRN (Reason: severe pain)
Patient Comments:
03/29/2024: last filled 02/19/24, 84 tabs for 14 days from [facility]
potassium chloride [Klor-Con M20] 20 mEq Tablet,Er Particles/Crystals
20 meq PO BID
pantoprazole 40 mg tablet,delayed release (DR/EC)
40 mg PO HS
fentanyl 25 mcg/hr patch 72 hour
1 patch transdermal Q72H
Patient Comments:
03/29/2024: last filled 03/11/24, 10 patches for 30 days from [id number]
metoclopramide HCl 10 mg tablet
10 mg PO TID
pregabalin 25 mg capsule
50 mg PO DAILY
Patient Comments:
03/29/2024: last filled 02/29/24, 19 tabs for 19 days from [id number]
pregabalin 25 mg capsule
75 mg PO HS
Patient Comments:
03/29/2024: last filled 02/29/24, 19 tabs for 19 days from [id number]
Creon 36,000-114,000- 180,000 unit capsule,delayed release(DR/EC)
2 cap PO MEALS
Referrals:
Coby Kline MD [Family Provider] -
Interventions
Interventions:
*Risk Screen - Suicide Last Done: 01/16/25 10:35
*General Assessment Last Done: 01/16/25 11:13
*Neglect/Abuse Screening Last Done: 01/16/25 10:35
*ED- Fall Risk Assessment Last Done: 01/16/25 11:13
*ED COVID-19 Vaccine History Last Done: 01/16/25 11:13
Discharge Date and Time
Print Language: TURKISH
[2025-01-16] MEDS: NSS 1000 IV (11:52)
[2025-01-16] MEDS: DILAUDID 1 MG IV ×6 (11:52→21:08)
[2025-01-16] MEDS: ATIVAN 0.5 MG IV (12:01)
[2025-01-16 12:02] LABS: % Basophils 0.6 % (0-2); % Immature Granulocytes 0.6 % (0-0.5); % Monocytes 6.9 % (1.7-9.3); % Neutrophils 82.9 % (42.2-75.2); Absolute Eosinophils 0.1 10^3/uL (0-0.7); Absolute Lymphocytes 0.4 10^3/uL (1.2-3.4); Absolute Monocytes 0.4 10^3/uL (0.1-0.6); Absolute Neutrophils 4.4 10^3/uL (1.4-6.5); Hematocrit 35.9 % (39.0-52.0); Mean Corp Hgb Conc. 33.4 g/dL (33.0-37.0); Mean Corpuscular Hgb 27.7 pg (27.0-31.0); Mean Corpuscular Volume 82.9 fL (80.0-94.0); Mean Platelet Volume 8.4 fL (7.4-10.4); Nucleated Red Blood Cells % 0 % (-); Platelet Count 242 10^3/uL (130-400); Red Blood Cell Count 4.33 10^6/uL (4.70-6.10); Red Cell Dist. Width 13.5 % (11.5-14.5); White Blood Cell Count 5.2 10^3/uL (4.8-10.8)
[2025-01-16 12:19] LABS: ALT (SGPT) 30 U/L (0-50); AST (SGOT) 24 U/L (17-59); Alkaline Phosphatase 233 U/L (38-126); Blood Urea Nitrogen 17 mg/dl (9-20); Calcium 9.3 mg/dl (8.4-10.2); Carbon Dioxide 31 mmol/L (22-30); Chloride 90 mmol/L (98-107); Estimated Creatinine Clearance 72 ml/min; Glucose 179 mg/dl (70-99); Lipase < 10 U/L (23-300); Potassium 2.9 mmol/L (3.5-5.1); Sodium 131 mmol/L (135-145); Total Bilirubin 1.3 mg/dl (0.2-1.3); Total Protein 6.6 g/dl (6.3-8.2); eGFR > 60.00
[2025-01-16] MEDS: KCL 270 MEQ IV ×2 (13:07→16:52)
[2025-01-16] MEDS: OMNIPAQUE 50 ML PO (13:45)
--- NOTE | 2025-01-16 14:10 | HPS.HSE ---
Family Physician
-
Family Physician: Coby Kline
Chief Complaint
-
Nausea, vomiting with loss of appetite last a few days
History of Present Illness
69 years old male came in from home. Patient is accompanied by his sister. Patient is undergoing chemotherapy for pancreatic cancer with [facility]. He received first dose a week ago but started to feel more weakness and
inability to tolerate his medication including pain medicine. He has abdominal pain all the time. Nausea most of the day. No diarrhea or fever. Patient reported that he had terminal cancer but last regimen was intended to prolong his survival
for a few months if possible.
Medical History
Past Medical History
Past Medical History: Reports Other (Pancreatic cancer, paroxysmal atrial fibrillation, hypertension, hyperlipidemia, history of diabetes, BPH, history of lung cancer, GERD/hiatal hernia, sciatica, sleep apnea, arthritis)
Past Surgical History: Reports Other (No recent major surgery)
Social History
Tobacco: Non-smoker
Alcohol: None
Drug: None
Personal: Single
Living: With Family
Employment: Retired
Family History
Family History: Not pertinent
Allergies / Home Medications
Allergies reflects when Allergies were last updated in [employer].
Home Medications with original date entered in [employer]
Allergy/Medication List:
Allergies
Allergy/AdvReac Type Severity Reaction Status Date / Time
latex Allergy Hives Verified 01/16/25 10:36
Sulfa (Sulfonamide Allergy Fever, Verified 01/16/25 10:36
Antibiotics) Hives
Home Medications
azelastine 137 mcg (0.1 %) nasal spray 1 spray intranasal DAILY Congestion 07/13/23
cholecalciferol (vitamin D3) 125 mcg (5,000 unit) tablet (Vitamin D3) 125 mcg PO QPM Supplement 07/13/23
esomeprazole magnesium 40 mg capsule,delayed release 40 mg PO HS Gastrointestinal Issue 07/13/23
metoprolol succinate 50 mg tablet,extended release 24 hr 50 mg PO QPM Blood Pressure 07/13/23
rosuvastatin 20 mg tablet 20 mg PO DAILY High Cholesterol 07/13/23
dutasteride 0.5 mg capsule 0.5 mg PO HS Urinary Issue 10/31/23
acetaminophen 325 mg capsule (Tylenol) 650 mg PO QIDPRN PRN mild pain 11/03/23
apixaban 5 mg tablet (Eliquis) 5 mg PO BID Blood Clot Prevention/Tx 11/03/23
silodosin 8 mg capsule (Rapaflo) 8 mg PO HS Urinary Issue 11/03/23
metformin 1,000 mg tablet,extended release 24hr (osmotic) 500 mg PO BID Diabetes 11/25/23
fentanyl 25 mcg/hr transdermal patch 1 patch transdermal Q72H Pain 03/29/24
hydromorphone 2 mg tablet 4 mg PO Q4H PRN severe pain 03/29/24
weojpr-ezqmgaiq-jntniqi 36,000-114,000-180,000 unit capsule,delay rel (Creon) 2 cap PO MEALS Liver Issues 03/29/24
metoclopramide HCl 10 mg tablet 10 mg PO TID Gastrointestinal Issue 03/29/24
pantoprazole 40 mg tablet,delayed release 40 mg PO HS Gastrointestinal Issue 03/29/24
potassium chloride 20 mEq tablet,extended release(part/cryst) (Klor-Con M) 20 meq PO BID Supplement 03/29/24
pregabalin 25 mg capsule 75 mg PO HS Neurological Condition 03/29/24
valsartan 80 mg tablet 80 mg PO HS Blood Pressure 03/29/24
fentanyl 50 mcg/hr transdermal patch 1 patch transdermal Q72H 01/16/25
lactulose 10 gram/15 mL oral solution 20 g PO DAILY 01/16/25
pregabalin 50 mg capsule (Lyrica) 50 mg PO TID 01/16/25
Review of Systems
-
History Source: Patient
A 12 point ROS was completed and negative except as noted: Yes
Constitutional: Reports Fatigue; Denies Fever
EENT: Denies Sore Throat
Respiratory: Denies Cough or Trouble Breathing
Cardiac: Denies Chest Pain
Abdomen/GI: Reports Abdominal Pain, Nausea, Vomiting and Anorexia
: Denies Dysuria or Difficulty Voiding
Musculoskeletal: Denies Joint Swelling
Skin: Denies Rash
Neurological: Reports Other (Chronic neuropathy in toes and hands)
Hematologic/Lymphatic: Denies Bleeding or Bruising
Psych: Denies Panic Disorder
Physical Exam
Vital Signs
Vital Signs
Temp Pulse Resp BP Pulse Ox
98.3 F 108 18 120/89 99
01/16/25 10:35 01/16/25 11:18 01/16/25 11:18 01/16/25 11:18 01/16/25 11:18
Physical Exam
General: No Apparent Distress and Appears Chronically Ill
HEENT: Anicteric and Atraumatic
Respiratory: No Wheezes
Cardiac: S1/S2
GI: Soft, Non Distended and Tender (Mid abdomen)
Rectal: No Maroon Stools
Genito-urinary: No Bloody Urine
Musculoskeletal: No Cyanosis
Skin: No Jaundice or Ulcers
Neuro: AO x 3 and Nonfocal/grossly intact
Psych: Calm and Intact Judgment/Insight
Laboratory Results
-
01/16/25 11:50
01/16/25 11:50
Laboratory Results
Total Bilirubin 1.3 mg/dl (0.2-1.3) 01/16/25 11:50
AST 24 U/L (17-59) 01/16/25 11:50
ALT 30 U/L (0-50) 01/16/25 11:50
Alkaline Phosphatase 233 U/L (38-126) H 01/16/25 11:50
Lipase < 10 U/L (23-300) L 01/16/25 11:50
Impression/Plan
-
69 male presented with nausea, intolerance to oral pain medications, abdominal pain
# Acute on chronic cancer pain with opioid dependency, pancreatic cancer
Pain is mostly mid abdomen radiating to the back. Patient takes oral Dilaudid and fentanyl patch at home. He has been unable to tolerate oral intake since last chemotherapy.
He reports that Dilaudid, fentanyl and Ativan mostly helping his pain but unable to tolerate them orally
Admit the patient to the hospital
Start the patient on supportive care with IV fluid while decreased appetite
Start IV Dilaudid and titrate the dose as tolerated
IV Compazine for nausea
Continue with fentanyl patch
Will order CAT scan of the abdomen pelvis although on clinical examination no distention Noted.
Will follow and monitor.
# Adenocarcinoma of the pancreas
He follows with Dr. Monica Kumar� at [facility]
He reported that cancer was not responding to treatment. His oncologist started him on aggressive regimen a week ago, aim to prolong survival but not curative.
Patient would like to focus on making him comfortable with pain control and nausea control.
Goal is to achieve pain control and discharged to follow-up with his doctor.
Patient reports that he was considering to stop chemotherapy and continue with comfort care
# Chemotherapy-induced nausea vomiting
We will do Compazine for now with IV Ativan IV Protonix
With history of GERD
# History of paroxysmal atrial fibrillation, continue with metoprolol and Eliquis#
# History of primary hypertension, hyperlipidemia. Will monitor blood pressure in the hospital
# Arthritis/sciatica
# Sleep apnea-continue CPAP
# Diverticulosis
# History of BPH, no retention
# Underweight
# Anemia of malignancy/anemia of chronic disease
# Hypokalemia, replace
# Hyponatremia
# CODE STATUS, DNR/DNI
Total time spent to see the patient, examine the patient, review data and lab results, discuss treatment plan with patient, ER doctor and nursing staff around 75 minutes
[2025-01-16 14:21] VITALS: BP 136/81
--- NOTE | 2025-01-16 15:25 | EDRN ---
This RN TT'd Dr. Seay at 15:20 anjana that pt could not tolerate drinking any more oral contrast, only able to drink one cup. The 2 hour yonatan being 15:45 and pt having a ready admit bed. Dr. Seay said to sent pt to CT. CT called and able to take pt.
[2025-01-16 15:58] VITALS: BP 134/78
[2025-01-16] MEDS: DURAGESIC 75 MCG/HR PATCH 1 PATCH TRANSDERM (16:52)
[2025-01-16] MEDS: D5/0.9% SODIUM CHLORIDE 1000 IV (16:52)
[2025-01-16] MEDS: TOPROL XL 50 MG PO (17:05)
[2025-01-16 17:42] VITALS: BMI 19.3
[2025-01-16 17:43] VITALS: BMI 19.3
[2025-01-16] MEDS: LYRICA 50 MG PO ×2 (17:53→21:08)
--- NOTE | 2025-01-16 17:57 | PTCARENOTE ---
pt admitted from ED to room 1143-01. pt ambulated from stretcher to bed with 1 assist, generalized weakness. Right subq port infusing KCl at this time. pt oriented to room and unit. pt reports pain 5/6 out of 10 at this time, prn dilaudid given.
[2025-01-16] MEDS: COMPAZINE 10 MG IV (19:12)
[2025-01-16] MEDS: ELIQUIS 5 MG PO (19:12)
[2025-01-16] MEDS: PROSCAR 5 MG PO (21:08)
[2025-01-16 23:19] VITALS: BP 114/70
[2025-01-17] MEDS: DILAUDID 1 MG IV ×4 (00:51→10:27)
[2025-01-17] MEDS: D5/0.9% SODIUM CHLORIDE 1000 IV (02:08)
[2025-01-17 06:24] LABS: Blood Urea Nitrogen 15 mg/dl (9-20); Calcium 8.7 mg/dl (8.4-10.2); Carbon Dioxide 29 mmol/L (22-30); Chloride 95 mmol/L (98-107); Estimated Creatinine Clearance 82 ml/min; Glucose 172 mg/dl (70-99); Potassium 3.6 mmol/L (3.5-5.1); Sodium 131 mmol/L (135-145); eGFR > 60.00
[2025-01-17 07:15] VITALS: BP 127/66
[2025-01-17] MEDS: ELIQUIS 5 MG PO ×2 (08:52→20:15)
[2025-01-17] MEDS: LYRICA 50 MG PO ×3 (08:52→21:19)
--- NOTE | 2025-01-17 09:11 | W.PN.HOSP.TC ---
Today's Communication/Plan
-
stop IVF
c/w diet
c/w IV Dilaudid
Encourage to ambulate
Do ISS until resuming Metformin ( On Monday)
Assessment / Plan
Assessment / Plan
Physical Exam
General: No Apparent Distress and Appears Chronically Ill
HEENT: Anicteric and Atraumatic
Respiratory: No Wheezes
Cardiac: S1/S2
GI: Soft, Non Distended and no tederness
Rectal: No Maroon Stools
Genito-urinary: No Bloody Urine
Musculoskeletal: No Cyanosis
Skin: No Jaundice or Ulcers
Neuro: AO x 3 and Nonfocal/grossly intact
Psych: Calm and Intact Judgment/Insight
69 male presented with nausea, intolerance to oral pain medications, abdominal pain
# Acute on chronic cancer pain with opioid dependency, pancreatic cancer
Pain is controlled with IV Dilaudid
no need for more IVF
IV Compazine for nausea
Continue with fentanyl patch
CAT scan of the abdomen pelvis , no acute findings.
# Adenocarcinoma of the pancreas
He follows with Dr. Monica Kumar� at [facility] [place]
He reported that cancer was not responding to treatment. His oncologist started him on aggressive regimen a week ago, aim to prolong survival but not curative.
Patient would like to focus on making him comfortable with pain control and nausea control.
Goal is to achieve pain control and discharged to follow-up with his doctor.
Patient reports that he was considering to stop chemotherapy and continue with comfort care
# Chemotherapy-induced nausea vomiting
We will do Compazine for now with IV Ativan IV Protonix
GERD: PPI
# DM
Holding Metformin due to contrast study
can do ISS
# History of paroxysmal atrial fibrillation, continue with metoprolol and Eliquis
# History of primary hypertension, hyperlipidemia. Will monitor blood pressure in the hospital
# Arthritis/sciatica
# Sleep apnea-continue CPAP
# Diverticulosis
# History of BPH, no retention
# Underweight
# Anemia of malignancy/anemia of chronic disease
# Hypokalemia, replace
# Hyponatremia
# CODE STATUS, DNR/DNI
Total time spent to see the patient, examine the patient, review data and lab results, discuss treatment plan with patient and nursing staff around 55 minutes
Anticipated Discharge: 24 - 48 hours
Subjective/Interval History
-
Date of Service: January 17, 2025
No chest pain
No sob
No fevers
Objective Data
-
Labs:
Laboratory Results
01/17/25
05:29
Sodium 131 L
Potassium 3.6
Chloride 95 L
Carbon Dioxide 29
BUN 15
Creatinine 0.8
Glucose 172 H
Calcium 8.7
Vital Signs:
Vital Signs
Temp Pulse Resp BP Pulse Ox
97.8 F 65 16 127/66 99
01/17/25 07:15 01/17/25 07:15 01/17/25 07:15 01/17/25 07:15 01/17/25 07:15
I&O
01/16/25 01/17/25 01/18/25
06:59 06:59 06:59
Intake Total 2250 / 2250
Balance 2250 / 2250
--- NOTE | 2025-01-17 09:49 | CM ---
Patient with Hx pancreatic cancer on chemo with Dx Acute on chronic cancer pain, Chemo induced nausea vomiting. Room air. Receiving Fentanyl lPatch, IV Dilaudid prn.
Met with patient who resides alone in a 1 story house with 2 [address].
He was independent in ADLs and ambulation without using an assistive device.
DME - [facility], CPAP
No prior VN or SNF.
PCP - Coby Kline
Pharmacy - [facility]
Patient states he will not be restarted on chemo and he was told he had about 6 weeks to live.
Patient clearly states he would like to go home with hospice ---> message to Dr Seay.
Explained that he needs to speak with MD about hospice and that sent Dr Seay a message.
He shares that his mother had hospice and his was in hospice until she about 2 yrs ago.
Reiterated hospice philosophy & benefits.
He says his sister Jose Guadalupe, who is retired, has been staying with him, and can assist him at home.
He wants to hire a caregiver - provided Caregiver list.
He will discuss caregiver agencies with Dr Kline, his executive associate doctor, to get their input.
He feels he may need a quad cane to ambulate more safely, and a hospital bed.
Plan follow up after MD decides about hospice.
[2025-01-17 11:50] LABS: Glucose - Point of Care 177 mg/dl (70-99)
[2025-01-17] MEDS: DILAUDID 2 MG IV ×4 (12:18→21:54)
[2025-01-17 12:53] VITALS: BMI 19.3
[2025-01-17] MEDS: NON-FORMULARY ITEM 2 CAP PO ×3 (13:06→17:55)
[2025-01-17] MEDS: NON-FORMULARY ITEM PO ×3 (13:07→13:42)
[2025-01-17] MEDS: NOVOLOG FLEXPEN-MODERATE RESISTANCE 1 UNITS SC (14:30)
[2025-01-17 15:15] VITALS: BP 114/69
[2025-01-17 16:52] LABS: Glucose - Point of Care 121 mg/dl (70-99)
[2025-01-17] MEDS: NOVOLOG FLEXPEN-MODERATE RESISTANCE SC (17:00)
[2025-01-17] MEDS: TOPROL XL 50 MG PO (17:54)
[2025-01-17] MEDS: COMPAZINE 10 MG IV (18:40)
[2025-01-17] MEDS: PROSCAR 5 MG PO (21:20)
[2025-01-17 21:28] LABS: Glucose - Point of Care 171 mg/dl (70-99)
[2025-01-17 23:10] VITALS: BP 110/62
[2025-01-18] MEDS: DILAUDID 2 MG IV ×8 (01:06→23:27)
[2025-01-18] MEDS: SENOKOT-S 1 TABLET PO (04:56)
[2025-01-18 07:24] LABS: Glucose - Point of Care 149 mg/dl (70-99)
[2025-01-18 07:41] VITALS: BP 140/84
[2025-01-18] MEDS: NOVOLOG FLEXPEN-MODERATE RESISTANCE SC ×3 (07:42→17:38)
[2025-01-18] MEDS: ELIQUIS 5 MG PO ×2 (07:43→20:23)
[2025-01-18] MEDS: GLUCOPHAGE 500 MG PO (07:43)
[2025-01-18] MEDS: LYRICA 50 MG PO ×3 (07:44→21:14)
[2025-01-18] MEDS: NON-FORMULARY ITEM 2 CAP PO ×3 (07:45→17:23)
--- NOTE | 2025-01-18 09:09 | W.PN.HOSP.TC ---
Today's Communication/Plan
-
Plan to change to oral Dilaudid Monday, if tolerates then discharge home
Restart Metformin Monday ( post contrast study)
Assessment / Plan
Assessment / Plan
Physical Exam
General: No Apparent Distress and Appears Chronically Ill
HEENT: Anicteric and Atraumatic
Respiratory: No Wheezes
Cardiac: S1/S2
GI: Soft, Non Distended and no tederness
Rectal: No Maroon Stools
Genito-urinary: No Bloody Urine
Musculoskeletal: No Cyanosis
Skin: No Jaundice or Ulcers
Neuro: AO x 3 and Nonfocal/grossly intact
Psych: Calm and Intact Judgment/Insight
69 male presented with nausea, intolerance to oral pain medications, abdominal pain
# Acute on chronic cancer pain with opioid dependency, pancreatic cancer
Pain is controlled with IV Dilaudid , changed to 2 mg Q 3HPRN
no need for more IVF
He seems to tolerate liquids well.
IV Compazine for nausea
Continue with fentanyl patch
CAT scan of the abdomen pelvis , no acute findings.
He will f/w Dr Petty(GI) for OP option of celiac plexus block/celiac neurolysis.
# Adenocarcinoma of the pancreas
He follows with Dr. Monica Kumar� at [facility] [place]
He reported that cancer was not responding to treatment. His oncologist started him on aggressive regimen a week ago, aim to prolong survival but not curative.
Patient would like to focus on making him comfortable with pain control and nausea control.
Goal is to achieve pain control and discharged to follow-up with his doctor.
Patient reports that he was considering to stop chemotherapy and continue with comfort care
# Chemotherapy-induced nausea vomiting
c/w Compazine for now with IV Ativan & IV Protonix
GERD: PPI
# DM
Holding Metformin due to contrast study, restart it on Monday ( 72 Hours)
can do ISS
# History of paroxysmal atrial fibrillation, continue with metoprolol and Eliquis
# History of primary hypertension, hyperlipidemia. Will monitor blood pressure in the hospital
# Arthritis/sciatica
# Sleep apnea-continue CPAP
# Diverticulosis
# History of BPH, no retention
# Underweight
# Anemia of malignancy/anemia of chronic disease
# Hypokalemia, replace
# Hyponatremia
# CODE STATUS, DNR/DNI
Total time spent to see the patient, examine the patient, review data and lab results, discuss treatment plan with patient and nursing staff around 55 minutes
Anticipated Discharge: Within 24 hours
Subjective/Interval History
-
Date of Service: January 18, 2025
less abdominal pain with IV Dilaudid
No chest pain
Objective Data
-
Vital Signs:
Vital Signs
Temp Pulse Resp BP Pulse Ox
97.4 F 69 17 140/84 98
01/18/25 07:41 01/18/25 07:41 01/18/25 07:41 01/18/25 07:41 01/18/25 07:41
I&O
01/17/25 01/18/25 01/19/25
06:59 06:59 07:59
Intake Total 2250 / 2250 1200 / 1200
Balance 2250 / 2250 1200 / 1200
[2025-01-18 09:13] VITALS: BP 123/67; PULSE 75; O2SAT 97
[2025-01-18 09:56] LABS: Glycohemoglobin (HgbA1c) 6.9 % (4.0-5.6)
[2025-01-18 10:11] VITALS: BP 123/67; PULSE 72; O2SAT 98
--- NOTE | 2025-01-18 10:19 | PTOTSP ---
pt currently requires no assistance to complete simple ADLs, functional transfers, ambulation. pt has assistance with IADLs from sister. pt would benefit from extra assistance in the home, potentially C. no acute OT needs identified at this time,
will sign off.
[2025-01-18] MEDS: NON-FORMULARY ITEM PO (10:26)
[2025-01-18 11:15] LABS: Glucose - Point of Care 158 mg/dl (70-99)
[2025-01-18] MEDS: DUPHALAC/CHRONULAC 20 GRAMS PO (14:53)
[2025-01-18 15:14] VITALS: BP 134/76
--- NOTE | 2025-01-18 15:16 | CM ---
CM reviewed medical records. Plan for discharge possibly 01/19
[2025-01-18] MEDS: TOPROL XL 50 MG PO (17:22)
[2025-01-18 17:30] LABS: Glucose - Point of Care 129 mg/dl (70-99)
[2025-01-18] MEDS: COMPAZINE 10 MG IV (18:17)
[2025-01-18] MEDS: NON-FORMULARY ITEM 8 MG PO (21:14)
[2025-01-18] MEDS: PROSCAR 5 MG PO (21:14)
[2025-01-18] MEDS: SENOKOT-S 2 TABLET PO (21:16)
[2025-01-18 22:33] LABS: Glucose - Point of Care 129 mg/dl (70-99)
[2025-01-18 22:52] VITALS: BP 124/74
[2025-01-19] MEDS: DILAUDID 2 MG IV (03:38)
[2025-01-19 07:17] LABS: Glucose - Point of Care 128 mg/dl (70-99)
[2025-01-19 07:32] VITALS: BP 109/70
[2025-01-19] MEDS: NOVOLOG FLEXPEN-MODERATE RESISTANCE SC ×3 (07:53→17:24)
[2025-01-19] MEDS: LYRICA 50 MG PO ×3 (07:55→21:04)
[2025-01-19] MEDS: MIRALAX 17 GRAMS PO (07:55)
[2025-01-19] MEDS: ELIQUIS 5 MG PO ×2 (07:55→21:00)
[2025-01-19] MEDS: GLUCOPHAGE 500 MG PO ×2 (07:55→17:16)
[2025-01-19] MEDS: DILAUDID 4 MG PO ×4 (07:57→21:32)
[2025-01-19] MEDS: TUMS CHEWABLE TABLET 200 MG PO ×2 (07:58→17:16)
[2025-01-19] MEDS: DUPHALAC/CHRONULAC 20 GRAMS PO (07:58)
[2025-01-19] MEDS: SENOKOT-S 2 TABLET PO ×2 (07:58→17:17)
[2025-01-19] MEDS: COMPAZINE 10 MG IV ×2 (07:58→17:17)
[2025-01-19] MEDS: NON-FORMULARY ITEM 2 CAP PO ×3 (08:06→17:20)
[2025-01-19] MEDS: DILAUDID 2 MG PO ×4 (11:06→21:32)
[2025-01-19 11:31] LABS: Glucose - Point of Care 169 mg/dl (70-99)
--- NOTE | 2025-01-19 13:27 | PTCARENOTE ---
Confirmed with MD Seay that it was okay to give pt's prn po Dilaudid early given his continued, unrelieved pain. See MAR for further details.
[2025-01-19 15:23] VITALS: BP 112/66
[2025-01-19] MEDS: TOPROL XL 50 MG PO (17:16)
[2025-01-19 17:34] LABS: Glucose - Point of Care 130 mg/dl (70-99)
[2025-01-19] MEDS: DURAGESIC 75 MCG/HR PATCH 1 PATCH TRANSDERM (18:43)
--- NOTE | 2025-01-19 19:07 | PTCARENOTE ---
4mg po Dilaudid did not scan into MAR, but was administered to patient along with 2mg po Dilaudid per order. RN went back into chart to amend mar and scan patient to document administration of 4mg po Dilaudid at the same time as 2mg po Dilaudid
(17:18), per order.
[2025-01-19] MEDS: NON-FORMULARY ITEM 8 MG PO (21:02)
[2025-01-19] MEDS: PROSCAR 5 MG PO (21:03)
[2025-01-19 23:00] VITALS: BP 129/68
[2025-01-19 23:21] LABS: Glucose - Point of Care 132 mg/dl (70-99)
[2025-01-20] MEDS: DILAUDID 4 MG PO ×3 (02:39→12:21)
[2025-01-20] MEDS: DILAUDID 2 MG PO ×3 (02:39→12:21)
[2025-01-20] MEDS: ATIVAN 0.5 MG IV (05:48)
[2025-01-20] MEDS: NOVOLOG FLEXPEN-MODERATE RESISTANCE SC ×3 (07:49→17:55)
[2025-01-20 07:58] LABS: Glucose - Point of Care 140 mg/dl (70-99)
[2025-01-20] MEDS: LYRICA 50 MG PO ×3 (07:58→21:25)
[2025-01-20] MEDS: GLUCOPHAGE 500 MG PO ×2 (07:58→17:17)
[2025-01-20] MEDS: MIRALAX 17 GRAMS PO (07:58)
[2025-01-20] MEDS: ELIQUIS 5 MG PO (07:58)
[2025-01-20] MEDS: NON-FORMULARY ITEM 2 CAP PO ×3 (07:59→17:18)
[2025-01-20] MEDS: COMPAZINE 10 MG IV (08:00)
[2025-01-20] MEDS: DUPHALAC/CHRONULAC 20 GRAMS PO (08:01)
[2025-01-20] MEDS: SENOKOT-S 2 TABLET PO (08:01)
[2025-01-20] MEDS: TUMS CHEWABLE TABLET 200 MG PO ×2 (08:01→19:41)
[2025-01-20 08:02] VITALS: BP 115/65
--- NOTE | 2025-01-20 09:00 | W.PN.HOSP.TC ---
Today's Communication/Plan
-
See plan
Assessment / Plan
Assessment / Plan
Physical Exam
General: No Apparent Distress and Appears Chronically Ill
HEENT: Normocephalic. Atraumatic
Respiratory: CTAB
Cardiac: S1/S2. RRR.
GI: Soft, Non Distended and non-tender
Musculoskeletal: No Cyanosis
Skin: Warm. Dry.
Neuro: AAO x 3 and Nonfocal/grossly intact
Psych: Calm and Intact Judgment/Insight
Assessment/Plan
69 y/o male who presented with nausea, intolerance to oral pain medications and abdominal pain.
# Acute on chronic cancer pain with opioid dependency, pancreatic cancer
IV Compazine for nausea HELD due to prolonged QTc
Continue with fentanyl patch
CAT scan of the abdomen pelvis , no acute findings.
Dr Petty(GI)mentioned that he will do celiac plexus block/celiac neurolysis on 01/22/25 -- Eliquis on hold 48 hours in advance of procedure -- discussed with Dr. Petty and patient who are both in agreement with this
-Based on previous IV hydromorphone usage, equivalent PO dose would closer to 8 mg PO q4hprn (not 6 mg) -- increased pain regimen
#Prolonged QTc
-Holding Compazine due to QTc prolongation
# Adenocarcinoma of the pancreas -- terminal stage of pancreatic cancer
He follows with Dr. Monica Black at [facility] cancer [place]
He reported that cancer was not responding to treatment. His oncologist started him on aggressive regimen a week ago, aim to prolong survival but not curative.
Patient would like to focus on making himself comfortable with pain control and nausea control.
Goal is to achieve pain control and discharged to follow-up with his doctor.
Patient reports that he was considering to stop chemotherapy and continue with comfort care
Patient is considering hospice, hospice consult has been placed
# Chemotherapy-induced nausea vomiting
Compazine held due to prolonged QTc
GERD: PPI
Consider Tigan is patient becomes nauseous/vomiting
# DM
Holding Metformin due to contrast study, restart it on Monday ( 72 Hours)
can do ISS
# History of paroxysmal atrial fibrillation, continue with metoprolol. Holding Eliquis for procedure as above.
# History of primary hypertension, hyperlipidemia. Will monitor blood pressure in the hospital
# Arthritis/sciatica
# Sleep apnea-continue CPAP
# Diverticulosis
# History of BPH, no retention
# Underweight
# Anemia of malignancy/anemia of chronic disease
# Hypokalemia, replace
# Hyponatremia
# CODE STATUS, DNR/DNI
Anticipated Discharge: 24 - 48 hours
Subjective/Interval History
-
Date of Service: January 20, 2025
Patient was seen and examined. He reported worsening of his chronic abdominal pain.
Objective Data
-
Vital Signs:
Vital Signs
Temp Pulse Resp BP Pulse Ox
97.6 F 64 16 115/65 98
01/20/25 08:02 01/20/25 08:02 01/20/25 08:02 01/20/25 08:02 01/20/25 08:02
I&O
01/19/25 01/20/25 01/21/25
06:59 06:59 06:59
Intake Total 840 / 840
Balance 840 / 840
[2025-01-20 12:35] LABS: Glucose - Point of Care 157 mg/dl (70-99)
[2025-01-20] MEDS: TYLENOL 1000 MG PO ×2 (14:55→19:39)
--- NOTE | 2025-01-20 15:38 | CM ---
CM reviewed pt with Dr Wells and initially indicated dc later today
Bedside meeting with pt and IMM completed verbally
Pt noted he is now planned to have a surgery Wed with GI
He notes ongoing pain issues
GOC also discussed and he is requesting info about hospice
In agreement with speaking with hospice for info at this time
Update to Dr Wells and hospice order requested
Update to [facility]/ Hospice
Discharge Disposition- TBD
--- NOTE | 2025-01-20 15:56 | CON.GI ---
Consultation
-
Date/Time Consultation Requested: 01/20/25 10am
Date/Time Consultation Performed: 01/20/25 3:30 pm
Requesting Provider: emely
Performing Provider: paulina
Reason for Consultation: pancreatic cancer
Medical History
Chief Complaint / HPI
Chief Complaint: refractory pain
History of Present Illness:
This patient is a 69-year-old man who has a history of pancreatic cancer being treated at [facility]. He currently is undergoing chemotherapy but is beginning to have refractory abdominal pain. His pain is severe on a constant
basis. He has been admitted for pain control but is unable to be controlled with Dilaudid and other forms of pain medication
Past Medical History
Past Medical History: Other (Pancreatic cancer, atrial fibrillation, hypertension, hyperlipidemia, sleep apnea, arthritis)
Past Surgical History: None
Social History
Tobacco: Non-Smoker
Family History
Family History: Reviewed & Not Pertinent
Allergies / Home Medications
Allergy/AdvReac Type Severity Reaction Status Date / Time
latex Allergy Hives Verified 01/16/25 10:36
Sulfa (Sulfonamide Allergy Fever, Verified 01/16/25 10:36
Antibiotics) Hives
�Medication �Instructions �Recorded
azelastine 137 mcg (0.1 %) nasal 1 spray intranasal DAILY Congestion 07/13/23
spray
metoprolol succinate 50 mg 50 mg PO QPM Blood Pressure 07/13/23
tablet,extended release 24 hr
rosuvastatin 20 mg tablet 20 mg PO DAILY High Cholesterol 07/13/23
dutasteride 0.5 mg capsule 0.5 mg PO HS Urinary Issue 10/31/23
apixaban 5 mg tablet (Eliquis) 5 mg PO BID Blood Clot 11/03/23
Prevention/Tx
silodosin 8 mg capsule (Rapaflo) 8 mg PO HS Urinary Issue 11/03/23
metformin 1,000 mg tablet,extended 500 mg PO BID Diabetes 11/25/23
release 24hr (osmotic)
fentanyl 25 mcg/hr transdermal 1 patch transdermal Q72H Pain 03/29/24
patch
hydromorphone 2 mg tablet 4 mg PO Q4HPRN PRN severe pain 03/29/24
szmnjb-gzipomgn-fkobxwb 2 cap PO MEALS Liver Issues 03/29/24
36,000-114,000-180,000 unit
capsule,delay rel (Creon)
pantoprazole 40 mg tablet,delayed 40 mg PO HS Gastrointestinal Issue 03/29/24
release
fentanyl 50 mcg/hr transdermal 1 patch transdermal Q72H 01/16/25
patch
lactulose 10 gram/15 mL oral 20 g PO DAILY 01/16/25
solution
lorazepam 0.5 mg tablet 0.5 mg PO TID 01/16/25
pregabalin 50 mg capsule (Lyrica) 50 mg PO TID 01/16/25
Review of Systems
-
All other systems: A 12 pt ROS was Negative except as stated above in HPI
Vital Signs
Temp Pulse Resp BP Pulse Ox
97.6 F 64 16 115/65 98
01/20/25 08:02 01/20/25 08:02 01/20/25 08:02 01/20/25 08:02 01/20/25 08:02
Physical Exam
Exam
General: Other (cachexia)
HEENT: Anicteric
Psych: Calm
Results
WBC 5.2 10^3/uL (4.8-10.8) 01/16/25 11:50
Hgb 12.0 g/dL (13.0-18.0) L 01/16/25 11:50
Hct 35.9 % (39.0-52.0) L 01/16/25 11:50
MCV 82.9 fL (80.0-94.0) 01/16/25 11:50
Plt Count 242 10^3/uL (130-400) 01/16/25 11:50
Absolute Neuts (auto) 4.4 10^3/uL (1.4-6.5) 01/16/25 11:50
Sodium 131 mmol/L (135-145) L 01/17/25 05:29
Potassium 3.6 mmol/L (3.5-5.1) 01/17/25 05:
Chloride 95 mmol/L (98-107) L 01/17/25 05:
Carbon Dioxide 29 mmol/L (22-30) 01/17/25 05:
BUN 15 mg/dl (9-20) 01/17/25:
Creatinine 0.8 mg/dL (0.7-1.3) 01/17/25:
Calcium 8.7 mg/dl (8.4-10.2) 01/17/25 05:
Total Bilirubin 1.3 mg/dl (0.2-1.3) 01/16/25 11:50
AST 24 U/L (17-59) 01/16/25 11:50
ALT 30 U/L (0-50) 01/16/25 11:50
Alkaline Phosphatase 233 U/L (38-126) H 01/16/25 11:50
Lipase < 10 U/L (23-300) L 01/16/25 11:50
Assessment / Plan
-
This patient is a 69-year-old man with a history of pancreatic cancer undergoing chemotherapy. He is refractory pain and he has severe acute on chronic pain refractory to narcotics. For now we will do the following:
1. Hold Eliquis
2. Contacted pharmacy for ethanol availability for injection into the celiac plexus via endoscopic ultrasound. Ethanol is available and tentatively he will have this procedure done Monday.
3. N.p.o. after midnight Monday night.
4. Otherwise diet as tolerated
5. Continue antiemetics and other forms of pain medication.
-
-
Thank you for consultation and allowing me to participate in the patient's care. Please call the qa automation engineer GI physician during the after hours with any questions or concerns.
[2025-01-20 16:00] VITALS: BP 128/71
--- NOTE | 2025-01-20 16:09 | HOSPNOTE ---
Spoke with patient and he would like to go ahead with the procedure on Monday with GI. The plan is for the patient to have the procedure and then go home with caregiving in place and hospice care. I am planning on meeting patient on to
discuss further. CM updated and floor RN. More information to follow.
[2025-01-20] MEDS: TOPROL XL 50 MG PO (17:17)
[2025-01-20] MEDS: DILAUDID 8 MG PO ×2 (17:17→21:25)
[2025-01-20 18:04] LABS: Glucose - Point of Care 170 mg/dl (70-99)
[2025-01-20] MEDS: PROSCAR 5 MG PO (21:26)
[2025-01-20] MEDS: NON-FORMULARY ITEM 8 MG PO (21:27)
[2025-01-20 21:42] LABS: Glucose - Point of Care 193 mg/dl (70-99)
[2025-01-20 23:06] VITALS: BP 110/61
[2025-01-21] MEDS: DILAUDID 8 MG PO ×5 (02:39→20:56)
[2025-01-21 08:00] VITALS: BP 123/62
[2025-01-21] MEDS: NON-FORMULARY ITEM 2 CAP PO ×3 (08:04→18:24)
[2025-01-21] MEDS: GLUCOPHAGE 500 MG PO ×2 (08:04→16:48)
[2025-01-21] MEDS: LYRICA 50 MG PO ×3 (08:05→20:54)
[2025-01-21] MEDS: TYLENOL 1000 MG PO ×2 (08:05→20:56)
[2025-01-21] MEDS: MIRALAX 17 GRAMS PO (08:05)
[2025-01-21 09:32] LABS: Glucose - Point of Care 121 mg/dl (70-99)
[2025-01-21] MEDS: NOVOLOG FLEXPEN-MODERATE RESISTANCE SC ×4 (10:16→18:22)
--- NOTE | 2025-01-21 11:40 | W.PN.HOSP.TC ---
Today's Communication/Plan
-
Celiac plexus block/celiac neurolysis on 01/22/[address] Petty of GI -- although patient's pain has improved, he stated that he does not want to leave the hospital until that procedure is done
Eliquis remains on hold for procedure above
Lovenox for DVT prophylaxis
NPO after midnight for procedure tomorrow
Assessment / Plan
Assessment / Plan
Physical Exam
General: No Apparent Distress and Appears Chronically Ill
HEENT: Normocephalic. Atraumatic
Respiratory: CTAB
Cardiac: S1/S2. RRR.
GI: Soft, Non Distended and non-tender. Positive bowel sounds.
Musculoskeletal: No Cyanosis
Skin: Warm. Dry.
Neuro: AAO x 3 and Nonfocal/grossly intact
Psych: Calm and Intact Judgment/Insight
Assessment/Plan
69 y/o male who presented with nausea, intolerance to oral pain medications and abdominal pain.
# Acute on chronic cancer pain with opioid dependency, pancreatic cancer
IV Compazine for nausea HELD due to prolonged QTc
Continue with fentanyl patch
CAT scan of the abdomen pelvis , no acute findings.
Dr Petty(GI)mentioned that he will do celiac plexus block/celiac neurolysis on 01/22/25 -- Eliquis on hold 48 hours in advance of procedure -- discussed with Dr. Petty and patient who are both in agreement with this
-Based on previous IV hydromorphone usage, equivalent PO dose would closer to 8 mg PO q4hprn (not 6 mg) -- increased pain regimen -- with improvement in pain
#Prolonged QTc
-Holding Compazine due to QTc prolongation
# Adenocarcinoma of the pancreas -- terminal stage of pancreatic cancer
He follows with Dr. Monica Black at [facility] cancer [place]
He reported that cancer was not responding to treatment. His oncologist started him on aggressive regimen a week ago, aim to prolong survival but not curative.
Patient would like to focus on making himself comfortable with pain control and nausea control.
Goal is to achieve pain control and discharged to follow-up with his doctor.
Patient reports that he was considering to stop chemotherapy and continue with comfort care -- but now focusing on palliative care only
Patient stated on 01/21/25 that no hospice at this time, his goal is palliative care at home after discharge (hopefully tomorrow)
# Chemotherapy-induced nausea vomiting
Compazine held due to prolonged QTc
GERD: PPI
Consider Tigan is patient becomes nauseous/vomiting
# DM
Holding Metformin due to recent contrast study, restart with outpatient PCP after discharge
can do ISS
# History of paroxysmal atrial fibrillation, continue with metoprolol. Holding Eliquis for procedure as above -- last dose of Eliquis was in the morning of January 20, 2025.
# History of primary hypertension, hyperlipidemia. Will monitor blood pressure in the hospital
# Arthritis/sciatica
# Sleep apnea-continue CPAP
# Diverticulosis
# History of BPH, no retention
# Underweight
# Anemia of malignancy/anemia of chronic disease
# Hypokalemia, replace
# Hyponatremia
# DVT Prophylaxis: SCDs. Lovenox for now (since holding Eliquis)
# CODE STATUS, DNR/DNI
Anticipated Discharge: Within 24 hours
Subjective/Interval History
-
Date of Service: January 21, 2025
Patient was seen and examined. He reported that his pain is better.
Objective Data
-
Vital Signs:
Vital Signs
Temp Pulse Resp BP Pulse Ox
99.7 F 81 16 123/62 96
01/21/25 08:00 01/21/25 08:00 01/21/25 08:00 01/21/25 08:00 01/21/25 08:00
I&O
01/20/25 01/21/25 01/22/25
06:59 06:59 06:59
Intake Total 840 / 840 960 / 960
Balance 840 / 840 960 / 960
--- NOTE | 2025-01-21 11:59 | CM ---
CM following re: discharge planning.
Reviewed pt's chart, met with pt.
Pt is aware of the procedure scheduled for tomorrow. Pt also stated he is aware he most likely will be discharged home on with hospice. IMM reviewed, placed on chart, pt has a copy.
service liaison representative following.
D/c plan: most likely home on with hospice and family support.
CM will follow with discharge plan updates as needed.
--- NOTE | 2025-01-21 12:14 | W.PN.GI.CBS2 ---
Today's Communication / Plan
-
EUS with celiac axis block planned for 01/22/25
NPO after midnight
Anticoagulation on hold
Assessment / Plan
-
This patient is a 69-year-old man with a history of pancreatic cancer undergoing chemotherapy. He is refractory pain and he has severe acute on chronic pain refractory to narcotics. For now we will do the following:
Impression:
Intractable pain refractory to oral analgesia
Pancreatic cancer
Plan:
-EUS with celiac axis block for 01/22/25
-Hold Eliquis
-Contacted pharmacy for ethanol availability for injection into the celiac plexus via endoscopic ultrasound. Ethanol is available and tentatively he will have this procedure done Monday.
- N.p.o. after midnight Monday night.
- Continue antiemetics and other forms of pain medication.
Subjective
Subjective
Date of Service: January 21, 2025
Patient still with chronic abdominal pain. Scheduled for EUS/celiac axis block tomorrow with Dr. Petty. We were awaiting anticoagulation washout. Patient will be n.p.o. after midnight.
Objective
Data Reviewed
Laboratory Data:
Laboratory Results
01/16/25 11:50
01/17/25 05:29
Laboratory Results
Total Bilirubin 1.3 mg/dl (0.2-1.3) 01/16/25 11:50
AST 24 U/L (17-59) 01/16/25 11:50
ALT 30 U/L (0-50) 01/16/25 11:50
Alkaline Phosphatase 233 U/L (38-126) H 01/16/25 11:50
Lipase < 10 U/L (23-300) L 01/16/25 11:50
Vital Signs and I&O:
Vital Signs
Temp Pulse Resp BP Pulse Ox
99.7 F 81 16 123/62 96
01/21/25 08:00 01/21/25 08:00 01/21/25 08:00 01/21/25 08:00 01/21/25 08:00
I&O
01/20/25 01/21/25 01/22/25
06:59 06:59 06:59
Intake Total 840 / 840 960 / 960
Balance 840 / 840 960 / 960
Physical Exam
Physical Exam
Cardiology: Normal Sinus Rhythm
Pulmonary: Clear
GI: Soft, Non Distended, Tender (upper abdomen) and Normal Bowel Sounds
Neuro: Non Focal
--- NOTE | 2025-01-21 12:36 | HOSPNOTE ---
Continue to follow, the plan is most likely home on with hospice. Will speak with patient on in the am. Will continue to follow.
[2025-01-21 12:48] LABS: Glucose - Point of Care 135 mg/dl (70-99)
[2025-01-21] MEDS: TUMS CHEWABLE TABLET 200 MG PO ×2 (15:47→22:50)
[2025-01-21 16:00] VITALS: BP 118/67
[2025-01-21] MEDS: TOPROL XL 50 MG PO (18:22)
[2025-01-21] MEDS: LOVENOX 40 MG SC (18:23)
[2025-01-21] MEDS: ZOFRAN 4 MG IV (18:23)
[2025-01-21 18:39] LABS: Glucose - Point of Care 126 mg/dl (70-99)
[2025-01-21] MEDS: NON-FORMULARY ITEM 8 MG PO (20:56)
[2025-01-21] MEDS: PROSCAR 5 MG PO (20:56)
[2025-01-21 23:02] VITALS: BP 123/70
[2025-01-22] VITALS (11 sets, daily range): BP systolic 14–136; BP diastolic 32–80
[2025-01-22] MEDS: DILAUDID 8 MG PO ×5 (01:57→22:04)
[2025-01-22 02:07] LABS: Urine Albumin 2+ (Neg - Trace); Urine Bilirubin Negative (Negative); Urine Character Clear (Clear); Urine Color Yellow; Urine Glucose Negative (Negative); Urine Ketone Negative (Negative); Urine Leukocyte Negative (Negative); Urine Nitrite Negative (Negative); Urine Occult Blood Negative (Negative); Urine Specific Gravity 1.015 (<1.030); Urine Urobilinogen Negative (Neg - 1+)
[2025-01-22 04:01] LABS: Urine Bacteria Few (Negative)
[2025-01-22] MEDS: NON-FORMULARY ITEM PO ×2 (08:40→11:11)
[2025-01-22] MEDS: LYRICA 50 MG PO ×3 (08:40→20:18)
[2025-01-22] MEDS: TYLENOL 1000 MG PO ×2 (08:40→20:18)
[2025-01-22] MEDS: GLUCOPHAGE 500 MG PO ×2 (08:40→18:06)
[2025-01-22] MEDS: MIRALAX PO (08:40)
[2025-01-22] MEDS: NOVOLOG FLEXPEN-MODERATE RESISTANCE SC (08:41)
--- NOTE | 2025-01-22 11:04 | CM ---
CM reviewed medical records. Plan for OR today and then discharge on hospice 01/23. CM will remain available as needed.
PLAN: home with hospice.
--- NOTE | 2025-01-22 11:29 | W.PN.HOSP.TC ---
Today's Communication/Plan
-
Discharge today after the procedure below, as long as it is okay with Dr. Petty (body maker machine setter) to discharge patient after the procedure
Assessment / Plan
Assessment / Plan
Physical Exam
General: No Apparent Distress and Appears Chronically Ill
HEENT: Normocephalic. Atraumatic
Respiratory: CTAB
Cardiac: S1/S2. RRR.
GI: Soft, Non Distended and non-tender. Positive bowel sounds.
Musculoskeletal: No Cyanosis
Skin: Warm. Dry.
Neuro: AAO x 3 and Nonfocal/grossly intact
Psych: Calm and Intact Judgment/Insight
Assessment/Plan
69 y/o male who presented with nausea, intolerance to oral pain medications and abdominal pain.
# Acute on chronic cancer pain with opioid dependency, pancreatic cancer
IV Compazine for nausea HELD due to prolonged QTc
Continue with fentanyl patch
CAT scan of the abdomen pelvis , no acute findings.
Dr Petty(GI)mentioned that he will do celiac plexus block/celiac neurolysis on 01/22/25 (TODAY) -- Eliquis on hold 48 hours in advance of procedure -- discussed with Dr. Petty and patient who are both in agreement with this
-Based on previous IV hydromorphone usage, equivalent PO dose would closer to 8 mg PO q4hprn (not 6 mg) -- increased pain regimen -- with improvement in pain
#Prolonged QTc
-Holding Compazine due to QTc prolongation
# Adenocarcinoma of the pancreas -- terminal stage of pancreatic cancer
He follows with Dr. Monica Black at [facility] [place]
He reported that cancer was not responding to treatment. His oncologist started him on aggressive regimen a week ago, aim to prolong survival but not curative.
Patient would like to focus on making himself comfortable with pain control and nausea control.
Goal is to achieve pain control and discharged to follow-up with his doctor.
Patient reports that he was considering to stop chemotherapy and continue with comfort care -- but now focusing on palliative care only
Patient stated on 01/21/25 that no hospice at this time, his goal is palliative care at home after discharge (hopefully tomorrow)
# Chemotherapy-induced nausea vomiting
Compazine held due to prolonged QTc
GERD: PPI
Consider Tigan if patient becomes nauseous/vomiting
# DM
Holding Metformin due to recent contrast study, restart with outpatient PCP after discharge
can do ISS
# History of paroxysmal atrial fibrillation, continue with metoprolol. Holding Eliquis for procedure as above -- last dose of Eliquis was in the morning of January 20, 2025.
# History of primary hypertension, hyperlipidemia. Will monitor blood pressure in the hospital
# Arthritis/sciatica
# Sleep apnea-continue CPAP
# Diverticulosis
# History of BPH, no retention
# Underweight
# Anemia of malignancy/anemia of chronic disease
# Hypokalemia, replace
# Hyponatremia
# DVT Prophylaxis: SCDs. Lovenox for now (since holding Eliquis)
# CODE STATUS, DNR/DNI
Anticipated Discharge: Today
Subjective/Interval History
-
Date of Service: January 22, 2025
Patient was seen and examined. He reported pain was under control, he is looking forward to getting his procedure done today.
Objective Data
-
Vital Signs:
Vital Signs
Temp Pulse Resp BP Pulse Ox
97.9 F 58 20 105/53 98
01/22/25 11:06 01/22/25 11:06 01/22/25 11:06 01/22/25 11:06 01/22/25 11:06
I&O
01/21/25 01/22/25 01/23/25
06:59 06:59 06:59
Intake Total 960 / 960 720 / 720
Output Total 375 / 375
Balance 960 / 960 345 / 345
--- NOTE | 2025-01-22 13:38 | HOSPNOTE ---
Spoke with patient at length about hospice and the philosophy. The plan is for patient to get the GI procedure today and then discharge home tomorrow 01/23. No transport needed sister will be driving patient home. Attending and CM aware of plan.
--- NOTE | 2025-01-22 13:41 | W.PN.UPDATE ---
Update Note
Progress Note Update
Hospice nurse Rebecca Arteaga just communicated via [employer] Text to me that patient can be discharged to home with home hospice, tomorrow, but not today. She told me that patient wants hospice.
[2025-01-22] MEDS: SENSORCAINE-MPF 0.25% VIAL 30 ML S (16:00)
[2025-01-22] MEDS: DURAGESIC 75 MCG/HR PATCH 1 PATCH TRANSDERM (17:11)
[2025-01-22] MEDS: TOPROL XL 50 MG PO (18:06)
[2025-01-22] MEDS: NON-FORMULARY ITEM 2 CAP PO (18:06)
[2025-01-22] MEDS: LOVENOX 40 MG SC (18:06)
[2025-01-22] MEDS: PROSCAR 5 MG PO (20:18)
[2025-01-22] MEDS: NON-FORMULARY ITEM 8 MG PO (20:19)
[2025-01-22] MEDS: SENOKOT-S 2 TABLET PO (20:19)
[2025-01-22] MEDS: DUPHALAC/CHRONULAC 20 GRAMS PO (20:25)
[2025-01-22] MEDS: TUMS CHEWABLE TABLET 200 MG PO (20:26)
[2025-01-23 03:15] VITALS: BP 110/67
[2025-01-23] MEDS: TUMS CHEWABLE TABLET 200 MG PO (06:25)
[2025-01-23 07:24] VITALS: BP 109/65
--- NOTE | 2025-01-23 07:45 | W.PN.HOSP.TC ---
Today's Communication/Plan
-
Discharge today
Assessment / Plan
Assessment / Plan
Physical Exam
General: No Apparent Distress and Appears Chronically Ill
HEENT: Normocephalic. Atraumatic
Respiratory: CTAB
Cardiac: S1/S2. RRR.
GI: Soft, Non Distended and non-tender. Positive bowel sounds.
Musculoskeletal: No Cyanosis
Skin: Warm. Dry.
Neuro: AAO x 3 and Nonfocal/grossly intact
Psych: Calm and Intact Judgment/Insight
Assessment/Plan
69 y/o male who presented with nausea, intolerance to oral pain medications and abdominal pain.
# Acute on chronic cancer pain with opioid dependency, pancreatic cancer
Continue with fentanyl patch
CAT scan of the abdomen pelvis , no acute findings.
Celiac plexus neurolysis performed by housetrailer servicer Dr. Petty on 01/22/25
Patient stated to me on 01/23/25 that he does not need any pain medication prescription on discharge
#Prolonged QTc
-Holding Compazine due to QTc prolongation
# Adenocarcinoma of the pancreas -- terminal stage of pancreatic cancer
He follows with Dr. Monica Black at [facility] cancer [place]
He reported that cancer was not responding to treatment. His oncologist started him on aggressive regimen a week ago, aim to prolong survival but not curative.
Patient would like to focus on making himself comfortable with pain control and nausea control.
Goal is to achieve pain control and discharged to follow-up with his doctor.
Patient reports that he was considering to stop chemotherapy and continue with comfort care -- but now focusing on palliative care only
Patient would like to go home with home hospice today
# Chemotherapy-induced nausea vomiting
Compazine held due to prolonged QTc
GERD: PPI
Consider Tigan if patient becomes nauseous/vomiting
# DM
Holding Metformin due to recent contrast study, restart with outpatient PCP after discharge
can do ISS
# History of paroxysmal atrial fibrillation, continue with metoprolol. Resume Eliquis.
# History of primary hypertension, hyperlipidemia. Will monitor blood pressure in the hospital
# Arthritis/sciatica
# Sleep apnea-continue CPAP
# Diverticulosis
# History of BPH, no retention
# Underweight
# Anemia of malignancy/anemia of chronic disease
# Hypokalemia, replace
# Hyponatremia
# DVT Prophylaxis: SCDs. Lovenox for now (since holding Eliquis)
# CODE STATUS, DNR/DNI
More than 30 minutes spent in discharge including
Final examination of the patient
Summarizing hospital stay
Instructions for continuing care to all relevant caregivers
Preparation of discharge records, prescriptions, and referral forms
Total time spent (in minutes): 35
Anticipated Discharge: Today
Subjective/Interval History
-
Date of Service: January 23, 2025
Patient was seen and examined. He reported his pain was under much better control and that he is ready to go home with home hospice today.
Objective Data
-
Vital Signs:
Vital Signs
Temp Pulse Resp BP Pulse Ox
97.9 F 63 17 109/65 99
01/23/25 07:24 01/23/25 07:24 01/23/25 07:24 01/23/25 07:24 01/23/25 07:24
I&O
01/22/25 01/23/25 01/24/25
06:59 06:59 06:59
Intake Total 720 / 720 360 / 360
Output Total 375 / 375
Balance 345 / 345 360 / 360
[2025-01-23] MEDS: MIRALAX 17 GRAMS PO (07:46)
[2025-01-23] MEDS: TYLENOL 1000 MG PO (07:47)
[2025-01-23] MEDS: LYRICA 50 MG PO (07:47)
[2025-01-23] MEDS: NON-FORMULARY ITEM 2 CAP PO (07:47)
[2025-01-23] MEDS: GLUCOPHAGE 500 MG PO (07:47)
[2025-01-23] MEDS: ELIQUIS 5 MG PO (07:51)
[2025-01-23] MEDS: DILAUDID 2 MG PO (08:10)
[2025-01-23] MEDS: TIGAN 200 MG IM (09:52)
[2025-01-23 11:35] VITALS: BP 123/75
[2025-01-23] MEDS: NON-FORMULARY ITEM PO (13:07)
== END 2025-01-23 14:59 | disposition hospice, home (50) | DRG 948 ==
LOC: 1 ACUTE 14:20
PROVIDERS: Internal Medicine Gastroenterology; Nurse Practitioner Gerontology; Registered Nurse; ADMITTING PHYSICIAN Internal Medicine; ATTENDING PHYSICIAN Hospitalist; EMERGENCY PHYSICIAN Student in an Organized Health Care Education/Training Program; FAMILY PHYSICIAN Internal Medicine; OTHER PHYSICIAN Internal Medicine
PROC: 3E0G8GC Introduction of Other Therapeutic Substance into Upper GI, Via Natural or Artificial Opening Endoscopic (ICD-10-PCS; 2025-01-22)
DX: G89.3 Neoplasm related pain (acute) (chronic) (principal); C25.0 Malignant neoplasm of head of pancreas; F11.20 Opioid dependence, uncomplicated; Z68.1 Body mass index [BMI] 19.9 or less, adult; E87.1 Hypo-osmolality and hyponatremia; Z66 Do not resuscitate; D63.0 Anemia in neoplastic disease; E86.0 Dehydration; E87.6 Hypokalemia; I10 Essential (primary) hypertension; I48.0 Paroxysmal atrial fibrillation; G47.30 Sleep apnea, unspecified; R11.2 Nausea with vomiting, unspecified; T45.1X5A Adverse effect of antineoplastic and immunosuppressive drugs, initial encounter; R63.6 Underweight; E78.00 Pure hypercholesterolemia, unspecified; E11.9 Type 2 diabetes mellitus without complications; K57.30 Diverticulosis of large intestine without perforation or abscess without bleeding; M54.30 Sciatica, unspecified side; N40.0 Benign prostatic hyperplasia without lower urinary tract symptoms; Z91.040 Latex allergy status; Z88.2 Allergy status to sulfonamides; Z85.118 Personal history of other malignant neoplasm of bronchus and lung; Z79.01 Long term (current) use of anticoagulants; Z79.84 Long term (current) use of oral hypoglycemic drugs; Z79.899 Other long term (current) drug therapy
CPT/HCPCS: 74177; 80048; 80053; 81003; 81015; 82962; 83036; 83690; 85025; 93005; 96361; 96374; 96375; 96376; 97162; 97166; 99285; Q9967